=== PATIENT | female | born 1935 | race Caucasian/White ===

== ENCOUNTER → 2017-03-29 08:39 | Outpatient (CLI) | payer MEDICARE, SELFPAY ==
--- NOTE | 2017-03-29 | CT_ITS ---
CT chest wo con, CT biopsy guided needle, CT organ site lung RT Ordering Physician: Sebas Haddad MD Patient Age: 81 years: Female HISTORY: ITS.REASON: BX RT LUNG MASS for biopsy TECHNIQUE: Axial image set CT entire chest initially to localize lesion,for positioning with subsequent multiple limited axial biopsy images sets CT-guided biopsy to assist guiding needle to the appropriate location. At the end of the study. Complete CT chest was performed as well to exclude pneumothorax and reevaluate for any additional features. COMPARISON previous LD CT chest screening study from 02/03/2017. Subsequent outside PET/CT 03/03/2017 Also:Previous CT chest 05/12/2014 FINDINGS : CT chest Initially a Complete CT chest without contrast performed with the patient right side elevated, oblique position in order to to determine the best route for FNA biopsy of the known right lower lobe lung mass.. These initial images with patient tilted ~40 degrees right side elevated, again show ovoid mass at the periphery of the right lower lobe. This measures up to 4 cm AP x nearly 3 cm transverse. Abuts the pleura and basically subpleural type mass with no associated chest wall or rib involvement evident. No significant mediastinal nor hilar adenopathy. Calcified aorta. Mild diffuse tracheobronchial calcification most evident at hilar regions. I would note generous caliber pulmonary artery bilaterally which could reflect underlying pulmonary hypertension. Heart upper normal in size. Pacemaker right chest with atrial and ventricular leads intact. There is yield some streak artifact at the upper chest from the pacemaker.. Note postsurgical changes at isthmus and towards inferior right thyroid. It appeared left thyroid gland may have been possibly removed.. Small hiatal hernia. Adrenals normal. CT guided FNA biopsy... Following sterile preparation and local skin anesthesia as well patient sequential intermittent small doses Versed. We initially attempted to utilize Demerol 6.5 mg IV as well but patient developed a rash from this and thus we did not utilize further. Rather we gave Benadryl slow IV and the hives, rash at the IV are resolved. 3 FNA biopsy passes were performed under CT guidance.. Fundus sterile preparation and local skin anesthesia a 18-gauge hypodermic needle was placed and directed towards the mass. Breathing instructions were recurred with patient to provide consistent position of the mass. Once this was established 3 passes were performed using 22-gauge Chiba needle.. Generous amount of tissue obtained and submitted into the cytology container.. Patient tolerated procedure well with very little discomfort . CT chest post biopsy. Following the biopsy procedure a complete CT chest edema performed. This final image does show some minimal hemorrhage medial to the mass where the needle went through the mass into the adjacent lung. Minimal air is seen along the tract of the needle. However there is no pneumothorax . Follow-up chest films obtained with patient recovery show no pneumothorax development. There is a scant barely evident right pleural effusion which is very very slightly more evident at the end of the study which may reflect some minimal bleeding into the pleural space is well. Minor atelectasis is seen towards the right lung base.. Progressive dependent atelectasis at the left chest noted. Prominent atherosclerotic calcification yields moderate narrowing upper abdominal aorta with prominent renal artery proximal SMA calcification. IMPRESSION 1. The 4 x 3 cm ovoid mass at the periphery the RLL was sampled with 3 FNA biopsy passes using a 22-gauge Chiba needle. Generous tissue obtained cytology container, and submitted to pathology Patient to
[2017-03-29 09:23] LABS: Activated Partial Thrombo Time 25.7 seconds (23.6-34.0); Basophils # 0.1 K/mm3 (0-0.2); Basophils % 0.7 % (0.1-2.0); Eosinophils # 0.3 K/mm3 (0.0-0.4); Eosinophils % 5.1 % (0.1-12.0); Hematocrit 32.3 % (37.0-47.0); Hemoglobin 10.2 g/dL (12.2-16.2); INR 0.99 (0.9-1.1); Lymphocytes # 1.4 K/mm3 (0.7-4.5); Lymphocytes % 22.5 K/mm3 (10-50); Mean Corpuscular HGB Conc 31.6 g/dL (31.8-35.4); Mean Corpuscular Hemoglobin 29.6 pg (27.0-31.2); Mean Corpuscular Volume 93.4 fl (81-99); Mean Platelet Volume 7.1 fl (7.4-10.4); Monocytes # 0.3 K/mm3 (0.1-1.0); Neutrophils # 4.3 K/mm3 (1.8-7.8); Neutrophils % 66.8 % (37.0-80.0); Platelet Count 198 K/mm3 (142-424); Prothrombin Time 10.7 seconds (9.4-11.8); Red Blood Count 3.46 M/mm3 (4.20-5.40); White Blood Count 6.4 K/mm3 (4.8-10.8)
--- NOTE | 2017-03-29 12:44 | XR_ITS ---
XR CHEST 2V PA and lateral immediate post biopsy CXR#1. performed at 1250 hours Ordering Physician: Sebas Haddad MD Patient Age: 81 years: Female HISTORY: ITS.REASON: 3 HR S/P CT RT LUNG BX RO PNEUMOTHORAXpost lung mass biopsy TECHNIQUE: PA lateral chest COMPARISON :CT lung biopsy images completed immediate prior to this FINDINGS No pneumothorax is evident. The round mass at the right lung bases again identified. 3.6 cm round lung mass seen projected just above the lateral right hemidiaphragm again noted. . Post biopsy CT showed some minimal bleeding adjacent to this mass which is perhaps vaguely evident on the this immediate biopsy chest film with a shaggy medial margin of the mass on this study reflecting such... . Most importantly there is no pneumothorax. No pleural effusion. No acute lung findings otherwise seen of significance. Cardiomegaly. Pacemaker overlying the upper right chest. Left lung clear. Postsurgical changes at the bed of thyroid on right. IMPRESSION======= Nothing definitely acute No pneumothorax post biopsy. Lung mass right lung base again evident. Very slight shaggy margin may reflect minimal lung hemorrhage adjacent to it seen on the post biopsy CT images here. Cardiomegaly. Pacemaker
--- NOTE | 2017-03-29 15:00 | XR_ITS ---
XR CHEST 2V PA and lateral post biopsy CXR#2. performed at 1503 hours Ordering Physician: Sebas Haddad MD Patient Age: 81 years: Female HISTORY: ITS.REASON: 3 HR S/P CT RT LUNG BX RO PNEUMOTHORAXpost lung mass biopsy TECHNIQUE: PA lateral chest COMPARISON :Immediate postbiopsy CXR [address] lung biopsy images prior to that. FINDINGS No pneumothorax is evident. The round mass at the right lung bases again identified. 3.6 cm round lung mass seen projected just above the lateral right hemidiaphragm again noted. . Post biopsy CT showed some minimal bleeding adjacent to this mass which was vaguely evident on the previous immediate post biopsy chest film.. However on this delayed image the margins are actually slightly sharper. Most importantly there is no pneumothorax. No pleural effusion. No acute lung findings otherwise seen of significance. Cardiomegaly. Pacemaker overlying the upper right chest. Left lung clear. Postsurgical changes at the bed of thyroid on right. IMPRESSION======= Nothing definitely acute No pneumothorax post biopsy. Lung mass right lung base again evident. Cardiomegaly. Pacemaker
== END ==
PROVIDERS: PCP Family Medicine; Referring Provider Nurse Practitioner Family; Visit Provider Internal Medicine
DX: R94.2 Abnormal results of pulmonary function studies (principal); R91.8 Other nonspecific abnormal finding of lung field; Z79.01 Long term (current) use of anticoagulants
CPT/HCPCS: 10022; 36415; 71046; 71250; 77012; 85025; 85610; 85730; 88112; 88305; 88342

== ENCOUNTER 2017-05-25 09:30 | Outpatient (CLI) | payer MEDICARE, SELFPAY ==
[2017-05-25 09:48] VITALS: BMI 32.3
[2017-05-25 10:41] LABS: Basophils # 0.1 K/mm3 (0-0.2); Basophils % 0.7 % (0.1-2.0); Eosinophils # 0.3 K/mm3 (0.0-0.4); Eosinophils % 4.5 % (0.1-12.0); Hemoglobin 10.8 g/dL (12.2-16.2); Lymphocytes % 26.9 K/mm3 (10-50); Mean Corpuscular HGB Conc 30.1 g/dL (31.8-35.4); Mean Corpuscular Volume 96.3 fl (81-99); Mean Platelet Volume 6.9 fl (7.4-10.4); Monocytes # 0.4 K/mm3 (0.1-1.0); Monocytes % 5.5 % (1.7-9.3); Neutrophils # 4.5 K/mm3 (1.8-7.8); Neutrophils % 62.5 % (37.0-80.0); Platelet Count 273 K/mm3 (142-424); Red Blood Count 3.73 M/mm3 (4.20-5.40); White Blood Count 7.3 K/mm3 (4.8-10.8)
[2017-05-25 11:30] VITALS: BP 156/85; PULSE 76; RESP 18; TEMP 36.6
[2017-05-25 11:45] VITALS: BP 165/77; PULSE 78; RESP 18
[2017-05-25 12:00] VITALS: BP 171/76; PULSE 73; RESP 18
== END 2017-05-25 12:25 | disposition home or self-care (01) ==
LOC: INF 09:51
PROVIDERS: PCP Family Medicine; Visit Provider Internal Medicine
DX: C34.90 Malignant neoplasm of unspecified part of unspecified bronchus or lung (principal); Z51.11 Encounter for antineoplastic chemotherapy
CPT/HCPCS: 85025; 96413; J9271

== ENCOUNTER 2017-06-09 11:44 | Observation (INO) | payer MEDICARE, SELFPAY ==
[2017-06-09 11:44] VITALS: BP 119/66; PULSE 86; RESP 20; TEMP 37.3; O2SAT 92; BMI 31.1
[2017-06-09 11:52] VITALS: BMI 31.1
--- NOTE | 2017-06-09 11:53 | XR_ITS ---
XR chest portable HISTORY: ITS.REASON: weakness ORDERING PHYSICIAN: Juan Ramon Chambers MD PATIENT AGE: 81 years COMPARISON: 03 29 17 FINDINGS: Mild cardiomegaly without failure. Bipolar pacemaker is present. Parenchymal opacity once again noted in the right lung base and may be slightly smaller. Left lung is clear. Surgical clips are present in the right apex. IMPRESSION: Cardiomegaly with right lower lobe mass fissure for neoplasm which may be slightly smaller compared to the previous exam
--- NOTE | 2017-06-09 11:57 | HMH.EDGENADL ---
ED Disposition Clinical Impression: Dehydration, Generalized weakness UTI (urinary tract infection) Qualifiers: Urinary tract infection type: site unspecified Hematuria presence: with hematuria Qualified Code(s): N39.0 - Urinary tract infection, site not specified; R31.9 - Hematuria, unspecified Lung cancer Qualifiers: Laterality: right Lung location: lower lobe of lung Qualified Code(s): C34.31 - Malignant neoplasm of lower lobe, right bronchus or lung Disposition: Still a Patient Condition on Discharge: Fair Referrals: Kartik Armas MD [Primary Care Provider] - - Critical Care Critical Care Time: No Attestation: On 06/09/17, the high probability of a clinically significant, sudden or life threatening deterioration of the following system(s) required my full and direct attention, intervention and personal management. The time I documented below is in addition to time spent performing reported procedures but includes the following listed in this critical care notation. Medical Decision Making - Johnny Inquiry Pt receiving controlled substance: No Vital Signs: 06/09/17 11:44 Temperature 99.2 F Temperature Source Oral Pulse Rate [Right Radial] 86 Respiratory Rate 20 Blood Pressure [Right Arm] 119/66 Blood Pressure Mean [Right Arm] 83 Blood Pressure Source [Right Arm] Automatic Cuff Blood Pressure Position [Right Arm] Supine 02 Sat by Pulse Oximetry 92 L Oxygen Delivery Method Nasal Cannula Oxygen Flow Rate (LPM) 2 - Lab Data Lab Results 06/09/17 11:55: WBC 6.7, RBC 3.48 L, Hgb 10.2 L, Hct 32.4 L, MCV 93.0, MCH 29.3, MCHC 31.5 L, RDW 14.3, Plt Count 171, MPV 7.4, Neut % (Auto) 82.0 H, Lymph % (Auto) 13.3, [place] % (Auto) 3.8, Eos % (Auto) 0.6, Baso % (Auto) 0.3, Neut # (Auto) 5.5, Lymph # (Auto) 0.9, [place] # (Auto) 0.3, Eos # (Auto) 0.0, Baso # (Auto) 0.0 06/09/17 11:55: Sodium 132 L, Potassium 3.4 L, Chloride 95 L, Carbon Dioxide 29, Anion Gap 11.4, BUN 22 H, Creatinine 1.02, Estimated Creat Clear 54, Estimated GFR 52 L, Est GFR ( Amer) 63, Glucose 122 H, Calcium 8.0 L, Total Bilirubin 0.3, AST 26, ALT 22, Alkaline Phosphatase 93, Total Creatine Kinase 112, CK-MB (CK-2) 0.5, CK-MB (CK-2) Rel Index 0.4, Troponin I < 0.02, Total Protein 7.1, Albumin 2.7 L, Globulin 4.4 H, Albumin/Globulin Ratio 0.6 L 06/09/17 11:55: Lactic Acid 1.8 06/09/17 12:15: Urine Color Yellow, Urine Appearance Clear, Urine pH 5.5, Ur Specific [place] 1.020, Urine Protein Trace, Urine Glucose (UA) Negative, Urine Ketones Negative, Urine Blood 1+, Urine Nitrate Positive, Urine Bilirubin Negative, Urine Urobilinogen 0.2, Ur Leukocyte Esterase 1+ A, Urine RBC 3-5, Urine WBC 20-50, Ur Squamous Epith Cells 5-10, Urine Bacteria 4+ Result diagrams: 06/09/17 11:55 06/09/17 11:55 Orders (Tests/Meds): ED MEDICATIONS Generic Name Dose Route Start Last Admin Trade Name Freq PRN Reason Stop Dose Admin Ceftriaxone Sodium 1 gm/ 50 mls @ 100 mls/hr 06/09/17 13:15 Sodium Chloride IV 06/23/17 13:14 Q24H ANNE-MARIE Protocol Discontinued Medications Generic Name Dose Route Start Last Admin Trade Name Freq PRN Reason Stop Dose Admin Sodium Chloride 500 mls @ 999 mls/hr 06/09/17 12:00 06/09/17 11:56 Sod Chlor 0.9% 1000ml Bag IV 06/09/17 12:30 999 mls/hr .Q31M ANNE-MARIE Administration Ondansetron HCl 4 mg 06/09/17 12:04 06/09/17 12:09 Zofran 4mg/2ml Vial IV 06/09/17 12:05 4 mg ONCE ONE Administration ORDERS Category Date Time Status XR chest portable Stat Exams 06/09/17 11:53 Taken Blood Culture Stat Micro 06/09/17 11:55 Received Urine Culture Stat Micro 06/09/17 12:15 Received - ECG Data Tracing #1 EKG interpreted by Juan Ramon Chambers MD: Rhythm: Ventricular paced rhythm Rate: 82 No evidence of acute ischemia or injury Medical Decision Narrative: Lists an allergy to penicillin, but review of previous medications here shows she has had cephalosporins including Rocephin.
[2017-06-09 12:14] LABS: Basophils % 0.3 % (0.1-2.0); Eosinophils % 0.6 % (0.1-12.0); Hematocrit 32.4 % (37.0-47.0); Hemoglobin 10.2 g/dL (12.2-16.2); Lymphocytes # 0.9 K/mm3 (0.7-4.5); Lymphocytes % 13.3 K/mm3 (10-50); Mean Corpuscular HGB Conc 31.5 g/dL (31.8-35.4); Mean Corpuscular Hemoglobin 29.3 pg (27.0-31.2); Mean Platelet Volume 7.4 fl (7.4-10.4); Monocytes # 0.3 K/mm3 (0.1-1.0); Monocytes % 3.8 % (1.7-9.3); Neutrophils # 5.5 K/mm3 (1.8-7.8); Platelet Count 171 K/mm3 (142-424); Red Blood Count 3.48 M/mm3 (4.20-5.40); Red Cell Distribution Width 14.3 % (11.5-17.5); White Blood Count 6.7 K/mm3 (4.8-10.8)
[2017-06-09 12:39] LABS: Lactic Acid 1.8 mmol/L (0.4-2.0)
[2017-06-09 12:39] LABS: Microscopic, Urine URINE MICROSCOPIC (MICROSCOPIC)
[2017-06-09 12:41] LABS: Appearance,Urine CLEAR (Clear); Bilirubin,Urine Negative (Negative); Blood, Urine 1+ (Negative); Color,Urine YELLOW (Yellow); Glucose,Urine (UA) Negative (Negative); Ketones,Urine Negative (Negative); Leukocyte Esterase,Urine 1+ (Negative); Nitrate,Urine POSITIVE (Negative); PH,Urine 5.5 (5.0-8.5); Protein,Urine TRACE (Negative); Urobilinogen,Urine 0.2 EU/dl (0.2)
[2017-06-09 12:42] LABS: Alanine Aminotransferase 22 U/L (12-78); Albumin Level 2.7 gm/dL (3.4-5.0); Albumin/Globulin Ratio 0.6 (1.1-1.8); Alkaline Phosphatase 93 U/L (46-116); Anion Gap 11.4 mEq/L (5-15); Aspartate Amino Transferase 26 U/L (15-37); Bilirubin,Total 0.3 mg/dL (0.2-1.0); Blood Urea Nitrogen 22 mg/dL (7-18); CKMB Relative Index 0.4 U/L (0-4.0); Carbon Dioxide 29 mmol/L (21.0-32.0); Chloride 95 mmol/L (98-107); Creatine Kinase 112 U/L (26-192); Creatine Kinase MB 0.5 ng/ml (0.0-3.6); Creatinine Clearance Estimated 54 mL/min (0-300); Creatinine,Serum 1.02 mg/dL (0.55-1.02); Estimated Glomerular Filt Rate 52 ml/min (>60); GFR (African American) 63 ML/MIN (>60); Globulin 4.4 gm/dl (1.3-3.2); Glucose 122 mg/dL (74-106); Potassium 3.4 mmoL/L (3.5-5.1); Sodium 132 mmol/L (136-145); Total Protein,Serum 7.1 gm/dL (6.4-8.2); Troponin I < 0.02 ng/ml (0.00-0.06)
[2017-06-09 12:49] LABS: Bacteria,Urine 4+ /lpf; WBC,Urine 20-50 #/hpf (0-3)
[2017-06-09 14:01] VITALS: BMI 33.0
[2017-06-09 14:28] LABS: Free Thyroxine Index 4.3 ug/dL (5.93-13.13); T4 (Thyroxine) 11.2 ug/dl (4.7-13.3); Thyroid Stimulating Hormone 0.55 uIU/ml (0.358-3.740); Triiodothryronine (T3) Uptake 38 % (31-39)
--- NOTE | 2017-06-09 14:29 | PC.NURSE ---
attempted to call report
[2017-06-09 15:02] VITALS: BP 132/80; PULSE 85; RESP 18; TEMP 36.7; O2SAT 98
[2017-06-09 15:07] VITALS: BP 101/50; PULSE 79; RESP 20; TEMP 38.2; O2SAT 100
--- NOTE | 2017-06-09 15:56 | HMH.HP ---
*Admission Date: 06/09/17 *Chief complaint: Generalized weakness *History of present illness: 81-year-old female with recent diagnosis of squamous cell carcinoma of the right lung and history of COPD and coronary artery disease presented to the emergency department with complaint of increasing weakness and malaise over the preceding 3-4 days. Patient admits to poor appetite but was attempting to maintain her fluid status with drinking water and diet Pepsi. She denies fevers at home. Family became concerned because of her progressive decline and brought her to the emergency department. Patient did require assistance from staff getting out of the vehicle. Workup in the emergency department revealed what appears to be a urinary tract infection and mild dehydration. Patient has been admitted and placed on IV fluids and received Rocephin intravenously in the emergency department. Patient is now been on the floor for just a couple of hours but feels like she is already starting to improve. Since admission she has had a low-grade fever to 100.7. In regards to her squamous cell carcinoma of the right lung she received her first dose of Keytruda 2 weeks ago. [facility] History Medical History: Reports:: Cancer (Lung Right), Chronic Obstructive Pulmonary Disease (COPD), Coronary Artery Disease, Diabetes Mellitus Type 2, Hypertension, Internal Pacemaker Denies:: Diabetes Mellitus Type 1 Other Medical History: Reports: Thyroid Disease Other Surgeries: Yes: Hysterectomy-Total, Pacemaker, Thyroidectomy, Other (gallbladder) Amputation: No Fractures: No - *Social History Smoking Status: Former smoker Tobacco Type: cigarettes #Yrs smoked (if former smoker): 30 Smoking End Date: 2007 Alcohol Intake: never Substance Use Type: denies use Occupational Status: retired Housing: house Household Members: spouse - Psychiatric History Expresses thoughts of harming self/others: None Suicide Plan Description: No Plan *Family Hx:: Cancer, Coronary Artery Disease, Heart Attack Review of Systems - Constitutional Reports anorexia, Reports lack of energy, Reports malaise, Reports weakness, Denies chills, Denies fever(s), Denies night sweats - *Cardiovascular Reports shortness of breath, Denies chest pain - *Respiratory Reports cough - *Gastrointestinal Denies abdominal pain - *Neurologic Reports weakness, Denies headache(s), Denies numbness Meds Home Medications Medication Instructions Recorded Confirmed Type Aspirin [Aspir 81] 81 mg PO DAILY 03/29/17 06/09/17 History Clopidogrel Bisulfate [Clopidogrel 75 mg PO DAILY 03/29/17 06/09/17 History 75mg Tab] Fluticasone/Salmeterol [Advair 1 puff INHALATION BID 03/29/17 06/09/17 History 500/50mcg diskus] Levothyroxine Sodium 125 mcg PO DAILY 03/29/17 06/09/17 History [Levothyroxine 125mcg (0.125mg) Tab] Lisinopril [Lisinopril 10mg Tab] 10 mg PO DAILY 03/29/17 06/09/17 History Metformin HCl [Metformin 500mg 500 mg PO BID 03/29/17 06/09/17 History Tablet] [place]-3 Fatty Acids/Fish Oil [Fish 1 each PO DAILY 03/29/17 06/09/17 History Oil 1,000 mg Capsule] PARoxetine HCl [Paxil] 20 mg PO DAILY 03/29/17 06/09/17 History Pantoprazole Sodium [Protonix 40mg 40 mg PO DAILY 03/29/17 06/09/17 History tablet] Simvastatin 40 mg PO DAILY 03/29/17 06/09/17 History Spironolactone [Spironolactone 25 mg PO DAILY 03/29/17 06/09/17 History 25mg Tab] Tolterodine Tartrate 2 mg PO DAILY 03/29/17 06/09/17 History carvedilol 3.125 mg tablet 3.125 mg PO BID tab 04/24/17 06/09/17 History chlordiazepoxide 25 mg capsule 25 mg PO BID cap 04/24/17 06/09/17 History doxazosin 2 mg tablet 4 mg PO QHS tab 04/24/17 06/09/17 History Ipratropium/Albuterol Sulfate 3 ml IH Q6HP PRN 05/25/17 06/09/17 History [Duoneb 3mL neb] Allergies Allergy/AdvReac Type Severity Reaction Status Date / Time Penicillins Allergy Unknown Verified 05/25/17 10:22 morphine AdvReac Severe SHORTNESS Verified 0
--- NOTE | 2017-06-09 16:00 | P.HP_ITS ---
*Admission Date: 06/09/17 *Chief complaint: Generalized weakness *History of present illness: 81-year-old female with recent diagnosis of squamous cell carcinoma of the right lung and history of COPD and coronary artery disease presented to the emergency department with complaint of increasing weakness and malaise over the preceding 3-4 days. Patient admits to poor appetite but was attempting to maintain her fluid status with drinking water and diet Pepsi. She denies fevers at home. Family became concerned because of her progressive decline and brought her to the emergency department. Patient did require assistance from staff getting out of the vehicle. Workup in the emergency department revealed what appears to be a urinary tract infection and mild dehydration. Patient has been admitted and placed on IV fluids and received Rocephin intravenously in the emergency department. Patient is now been on the floor for just a couple of hours but feels like she is already starting to improve. Since admission she has had a low-grade fever to 100.7. In regards to her squamous cell carcinoma of the right lung she received her first dose of Keytruda 2 weeks ago. [facility] History Medical History: Reports:: Cancer (Lung Right), Chronic Obstructive Pulmonary Disease (COPD), Coronary Artery Disease, Diabetes Mellitus Type 2, Hypertension , Internal Pacemaker Denies:: Diabetes Mellitus Type 1 Other Medical History: Reports: Thyroid Disease Other Surgeries: Yes: Hysterectomy-Total, Pacemaker, Thyroidectomy, Other ( gallbladder) Amputation: No Fractures: No - *Social History Smoking Status: Former smoker Tobacco Type: cigarettes #Yrs smoked (if former smoker): 30 Smoking End Date: 2007 Alcohol Intake: never Substance Use Type: denies use Occupational Status: retired Housing: house Household Members: spouse - Psychiatric History Expresses thoughts of harming self/others: None Suicide Plan Description: No Plan *Family Hx:: Cancer, Coronary Artery Disease, Heart Attack Review of Systems - Constitutional Reports anorexia, Reports lack of energy, Reports malaise, Reports weakness, Denies chills, Denies fever(s), Denies night sweats - *Cardiovascular Reports shortness of breath, Denies chest pain - *Respiratory Reports cough - *Gastrointestinal Denies abdominal pain - *Neurologic Reports weakness, Denies headache(s), Denies numbness Meds Home Medications Medication Instructions Recorded Confirmed Type Aspirin [Aspir 81] 81 mg PO DAILY 03/29/17 06/09/17 History Clopidogrel Bisulfate [Clopidogrel 75 mg PO DAILY 03/29/17 06/09/17 History 75mg Tab] Fluticasone/Salmeterol [Advair 1 puff INHALATION BID 03/29/17 06/09/17 History 500/50mcg diskus] Levothyroxine Sodium 125 mcg PO DAILY 03/29/17 06/09/17 History [Levothyroxine 125mcg (0.125mg) Tab] Lisinopril [Lisinopril 10mg Tab] 10 mg PO DAILY 03/29/17 06/09/17 History Metformin HCl [Metformin 500mg 500 mg PO BID 03/29/17 06/09/17 History Tablet] [place]-3 Fatty Acids/Fish Oil [Fish 1 each PO DAILY 03/29/17 06/09/17 History Oil 1,000 mg Capsule] PARoxetine HCl [Paxil] 20 mg PO DAILY 03/29/17 06/09/17 History Pantoprazole Sodium [Protonix 40mg 40 mg PO DAILY 03/29/17 06/09/17 History tablet] Simvastatin 40 mg PO DAILY 03/29/17 06/09/17 History Spironolactone [Spironolactone 25 mg PO DAILY 03/29/17 06/09/17 History 25mg Tab] Tolterodine Tartrate 2 mg PO DAILY 03/29/17 06/09/17 History
[2017-06-09 19:54] VITALS: BP 126/45; RESP 20; TEMP 36.7; O2SAT 97
[2017-06-09 23:09] VITALS: O2SAT 88
[2017-06-10] VITALS (8 sets, daily range): BP systolic 109–157; BP diastolic 54–66; PULSE 81–94; RESP 18–20; TEMP 36.8–37.4; O2SAT 94–98
--- NOTE | 2017-06-10 03:58 | PC.NURSE ---
Patient laying in bed resting at this time. Has been to the restroom several times with standby assist. Has had stress incontinence every trip to restroom, soiling socks and floor. Has wheezes bilaterally. Denies soa, resp are even and non labored. Skin is warm, pink,dry and intact. No edema noted. IV is intact, encouraged patient to call out for assistance to restroom due to incontinence and lower ext weak. Verbalized understanding. Bed locked in low position, side rails up x 2, call light within reach. Will continue to monitor.
--- NOTE | 2017-06-10 06:38 | HMH.ACPN2 ---
Internal Medicine - PN: Subj *Date: 06/10/17 *Time: 06:38 Interval history: Patient had no problems over the night other than some urinary continence. She admits she is feeling a little bit better. She was noted to be wheezing by the nurse. She does use as needed neb treatments at home. She denies significant shortness of breath. Her appetite remains poor Exam Vital signs and Labs for Last 24 Hours: Temp Pulse Resp BP Pulse Ox 98.9 F 82 18 109/55 96 06/10/17 04:00 06/10/17 04:00 06/10/17 04:00 06/10/17 04:00 06/10/17 04:00 I & O for Last 24 hours: Intake & Output 06/07/17 06/08/17 06/09/17 06/10/17 11:59 11:59 11:59 11:59 Intake Total 360 / 360 Output Total 500 / 500 Balance -140 / -140 Narrative: She is in no distress. Audible wheezing can be heard just standing at bedside. Oropharynx is moist and clear. Lungs have expiratory wheezes and diminished sounds at the bases. Heart has a regular rate and rhythm. Abdomen is soft. Assessment and Plan (1) Dehydration Current visit: Yes Status: Acute Category: Medical Code(s): E86.0 - Dehydration (2) Generalized weakness Current visit: Yes Status: Acute Category: Medical Code(s): R53.1 - Weakness (3) Lung cancer Current visit: Yes Status: Acute Qualifiers: Laterality: right Lung location: lower lobe of lung Qualified Code(s): C34.31 - Malignant neoplasm of lower lobe, right bronchus or lung Category: Medical Code(s): C34.90 - Malignant neoplasm of unspecified part of unspecified bronchus or lung (4) UTI (urinary tract infection) Current visit: Yes Status: Acute Qualifiers: Urinary tract infection type: site unspecified Hematuria presence: with hematuria Qualified Code(s): N39.0 - Urinary tract infection, site not specified; R31.9 - Hematuria, unspecified Category: Medical Code(s): N39.0 - Urinary tract infection, site not specified - Assessment and plan all Dx Assessment and Plan for all problems:: 1. Decrease IV fluids to 50 mL's an hour and continue to monitor p.o. intake 2. Add duo nebs 3 times daily 3. Await urine and blood cultures
--- NOTE | 2017-06-10 09:47 | P.CONPHA_ITS ---
[facility] Pharmacy VTE Monitoring - Patient Demographics Admission date: 06/09/17 Report Date: 06/10/17 Time: 09:47 Allergies/Adverse Reactions: Patient Allergies Penicillins Allergy (Unknown, Verified 05/25/17 10:22) morphine Adverse Reaction (Severe, Verified 04/24/17 13:14) SHORTNESS OF BREATH Corticosteroids (Glucocorticoids) Adverse Reaction (Unknown, Verified 04/24/17 13:14) STEROIDS MAKE HER SHAKY , NO ALLERGIC REACTION Height: 1.55 m Weight: 79.492 kg Patient Problems: Current Active Problems UTI (urinary tract infection) (Acute) Dehydration (Acute) Generalized weakness (Acute) Lung cancer (Acute) - VTE Risk Labs: VTE Related Lab Results Hgb 10.2 g/dL (12.2-16.2) L 06/09/17 11:55 Hct 32.4 % (37.0-47.0) L 06/09/17 11:55 Plt Count 171 K/mm3 (142-424) 06/09/17 11:55 BUN 22 mg/dL (7-18) H 06/09/17 11:55 Creatinine 1.02 mg/dL (0.55-1.02) 06/09/17 11:55 Estimated Creat Clear 54 mL/min (0-300) 06/09/17 11:55 VTE Score: 3 VTE Risk Level: Low Risk - Prophylaxis VTE Prophylaxis Ordered?: Yes Types of VTE Prophylaxis: TEDS Thigh High Location of Applied Device: Bilateral Lower Extremeties - VTE Diagnosis Confirmed Treatment or plan recommended: Continue Current Treatment
[2017-06-11] VITALS (9 sets, daily range): BP systolic 148–155; BP diastolic 53–63; PULSE 72–98; RESP 18–20; TEMP 37–37.2; O2SAT 89–98
--- NOTE | 2017-06-11 03:47 | PC.NURSE ---
Pt up and down to bsc, no c/o pain, intermittent sleep, pleasant and cooperative with poc, remained safe this shift.
--- NOTE | 2017-06-11 07:07 | PC.NURSE ---
Shift report given to Hasmukh St RN leaving pt safe and stable.
--- NOTE | 2017-06-11 08:07 | HMH.ACPN2 ---
Internal Medicine - PN: Subj *Date: 06/11/17 *Time: 08:07 Interval history: Patient had a good night, good nursing staff report, good p.o. intake. She has no complaints, states she is feeling better. Exam Vital signs and Labs for Last 24 Hours: Temp Pulse Resp BP Pulse Ox 98.9 F 98 H 20 153/63 95 06/11/17 07:35 06/11/17 07:35 06/11/17 07:35 06/11/17 07:35 06/11/17 07:35 I & O for Last 24 hours: Intake & Output 06/08/17 06/09/17 06/10/17 06/11/17 11:59 11:59 11:59 11:59 Intake Total 360 / 360 2070 / 2070 Output Total 700 / 700 1400 / 1400 Balance -340 / -340 670 / 670 Weight 175 lb 4 oz Narrative: Patient is awake, pleasant. Anterior lung fernando are clear, heart rate regular. Abdomen is soft, minimal tenderness in the right flank. No perfusion deficits. Assessment and Plan (1) Dehydration Current visit: Yes Status: Acute Category: Medical Code(s): E86.0 - Dehydration (2) Generalized weakness Current visit: Yes Status: Acute Category: Medical Code(s): R53.1 - Weakness (3) Lung cancer Current visit: Yes Status: Acute Qualifiers: Laterality: right Lung location: lower lobe of lung Qualified Code(s): C34.31 - Malignant neoplasm of lower lobe, right bronchus or lung Category: Medical Code(s): C34.90 - Malignant neoplasm of unspecified part of unspecified bronchus or lung (4) UTI (urinary tract infection) Current visit: Yes Status: Acute Qualifiers: Urinary tract infection type: site unspecified Hematuria presence: with hematuria Qualified Code(s): N39.0 - Urinary tract infection, site not specified; R31.9 - Hematuria, unspecified Category: Medical Code(s): N39.0 - Urinary tract infection, site not specified - Assessment and plan all Dx Assessment and Plan for all problems:: Patient seems to be improving. Urine culture is growing gram-negative rods. Continue ceftriaxone. Check labs tomorrow morning. Await culture/sensitivity results.
[2017-06-12 03:22] VITALS: O2SAT 89
[2017-06-12 04:00] VITALS: BP 149/50; PULSE 71; RESP 20; TEMP 36.4; O2SAT 93
--- NOTE | 2017-06-12 04:38 | PC.NURSE ---
Pt had a good night, up to chair in earlier shift returning to bed and sleeping much better tonight versus last night. Up and down safely to bsc. Lung fernando found to have inspiratory and expiratory wheezes that improve with breathing treatments. Pt advised she thought she was going to get to go home this morning, when asked if she was ready to go home, she replied with a big yes! Ask if she had any questions regarding going home or medications and pt voiced she did not. Nothing acute to report and pt remained safe this shift.
[2017-06-12 06:38] LABS: Basophils % 0.4 % (0.1-2.0); Eosinophils # 0.2 K/mm3 (0.0-0.4); Eosinophils % 3.8 % (0.1-12.0); Hematocrit 28.7 % (37.0-47.0); Hemoglobin 8.9 g/dL (12.2-16.2); Lymphocytes # 1.1 K/mm3 (0.7-4.5); Lymphocytes % 20.1 K/mm3 (10-50); Mean Corpuscular HGB Conc 31.2 g/dL (31.8-35.4); Mean Corpuscular Hemoglobin 29.5 pg (27.0-31.2); Mean Corpuscular Volume 94.6 fl (81-99); Monocytes # 0.3 K/mm3 (0.1-1.0); Monocytes % 6.3 % (1.7-9.3); Neutrophils # 3.8 K/mm3 (1.8-7.8); Neutrophils % 69.3 % (37.0-80.0); Platelet Count 168 K/mm3 (142-424); Red Blood Count 3.03 M/mm3 (4.20-5.40); Red Cell Distribution Width 14.4 % (11.5-17.5); White Blood Count 5.4 K/mm3 (4.8-10.8)
[2017-06-12 06:43] LABS: Anion Gap 9.7 mEq/L (5-15); Carbon Dioxide 30 mmol/L (21.0-32.0); Chloride 109 mmol/L (98-107); Creatinine Clearance Estimated 57 mL/min (0-300); Estimated Glomerular Filt Rate 81 ml/min (>60); GFR (African American) 98 ML/MIN (>60); Glucose 123 mg/dL (74-106); Potassium 3.7 mmoL/L (3.5-5.1); Sodium 145 mmol/L (136-145)
[2017-06-12 07:02] LABS: Blood Urea Nitrogen 11 mg/dL (7-18)
--- NOTE | 2017-06-12 07:09 | PC.NURSE ---
Bedside report given with Delmi Fulton RN leaving pt safe and stable sitting up in bed eating breakfast.
--- NOTE | 2017-06-12 07:16 | HMH.DCSUM ---
General - General Admission date: 06/09/17 Discharge date: 06/12/17 HPI HPI: 81-year-old female with recent diagnosis of squamous cell carcinoma of the right lung and history of COPD and coronary artery disease presented to the emergency department with complaint of increasing weakness and malaise over the preceding 3-4 days. Patient admits to poor appetite but was attempting to maintain her fluid status with drinking water and diet Pepsi. She denies fevers at home. Family became concerned because of her progressive decline and brought her to the emergency department. Patient did require assistance from staff getting out of the vehicle. Workup in the emergency department revealed what appears to be a urinary tract infection and mild dehydration. Patient has been admitted and placed on IV fluids and received Rocephin intravenously in the emergency department. Patient is now been on the floor for just a couple of hours but feels like she is already starting to improve. Since admission she has had a low-grade fever to 100.7. In regards to her squamous cell carcinoma of the right lung she received her first dose of Keytruda 2 weeks ago. Hospital Course Hospital Course: Patient was admitted and started on IV fluids and intravenous Rocephin. She had low-grade fever on the day of admission of 100.7. She did not have any recurrence of fevers the rest of hospitalization. Over the 3 day hospitalization patient's strength gradually improved as did her appetite. She was able to transition to the chair and bedside commode independently. Urine culture ultimately grew E. coli. Once sensitivities had returned patient was discharged home on oral antibiotics. She will follow-up with Dr. Felipe in the oncology clinic on June 14 as previously scheduled. Objective Vital signs: Temp Pulse Resp BP Pulse Ox 97.6 F 71 20 149/50 93 L 06/12/17 04:00 06/12/17 04:00 06/12/17 04:00 06/12/17 04:00 06/12/17 04:00 Results Completed studies during hospitalization [Text1]: Microbiology 06/09/17 11:55 Blood Blood Culture - Preliminary NO GROWTH AFTER 48 HOURS 06/09/17 11:55 Blood Blood Culture - Preliminary NO GROWTH AFTER 48 HOURS 06/09/17 12:15 Urine,Clean Catch Urine Culture - Final Escherichia coli Labs on day of discharge: Labs from last 24 hours 06/12/17 06/12/17 06:10 06:10 WBC 5.4 RBC 3.03 L Hgb 8.9 L Hct 28.7 L MCV 94.6 MCH 29.5 MCHC 31.2 L RDW 14.4 Plt Count 168 MPV 8.0 Neut % (Auto) 69.3 Lymph % (Auto) 20.1 [place] % (Auto) 6.3 Eos % (Auto) 3.8 Baso % (Auto) 0.4 Neut # (Auto) 3.8 Lymph # (Auto) 1.1 [place] # (Auto) 0.3 Eos # (Auto) 0.2 Baso # (Auto) 0.0 Sodium 145 Potassium 3.7 Chloride 109 H Carbon Dioxide 30 Anion Gap 9.7 BUN 11 D Creatinine 0.70 D Estimated Creat Clear 57 Estimated GFR 81 Est GFR ( Amer) 98 D Glucose 123 H DS: Diagnosis - Discharge Diagnosis (1) UTI (urinary tract infection) Status: Acute (2) Dehydration Status: Acute (3) Generalized weakness Status: Acute (4) Lung cancer Status: Acute (5) E coli infection Status: Acute Discharge Plan - Patient Discharge Instructions ACTIVITY: Continue current activity DIET: continue same diet - Follow up Plan Follow up with: Mikhail Felipe MD [Staff Physician] - 2 days Disposition: Home, Self-Retirement Medications: Home Medications Medication Instructions Recorded Confirmed Type Aspirin [Aspir 81] 81 mg PO DAILY 03/29/17 06/09/17 History Clopidogrel Bisulfate [Clopidogrel 75 mg PO DAILY 03/29/17 06/09/17 History 75mg Tab] Fluticasone/Salmeterol [Advair 1 puff INHALATION BID 03/29/17 06/09/17 History 500/50mcg diskus] Levothyroxine Sodium 125 mcg PO DAILY 03/29/17 06/09/17 History [Levothy
--- NOTE | 2017-06-12 07:19 | P.DS_ITS ---
General - General Admission date: 06/09/17 Discharge date: 06/12/17 HPI HPI: 81-year-old female with recent diagnosis of squamous cell carcinoma of the right lung and history of COPD and coronary artery disease presented to the emergency department with complaint of increasing weakness and malaise over the preceding 3-4 days. Patient admits to poor appetite but was attempting to maintain her fluid status with drinking water and diet Pepsi. She denies fevers at home. Family became concerned because of her progressive decline and brought her to the emergency department. Patient did require assistance from staff getting out of the vehicle. Workup in the emergency department revealed what appears to be a urinary tract infection and mild dehydration. Patient has been admitted and placed on IV fluids and received Rocephin intravenously in the emergency department. Patient is now been on the floor for just a couple of hours but feels like she is already starting to improve. Since admission she has had a low-grade fever to 100.7. In regards to her squamous cell carcinoma of the right lung she received her first dose of Keytruda 2 weeks ago. Hospital Course Hospital Course: Patient was admitted and started on IV fluids and intravenous Rocephin. She had low-grade fever on the day of admission of 100.7. She did not have any recurrence of fevers the rest of hospitalization. Over the 3 day hospitalization patient's strength gradually improved as did her appetite. She was able to transition to the chair and bedside commode independently. Urine culture ultimately grew E. coli. Once sensitivities had returned patient was discharged home on oral antibiotics. She will follow-up with Dr. Felipe in the oncology clinic on June 14 as previously scheduled. Objective Vital signs: Temp Pulse Resp BP Pulse Ox 97.6 F 71 20 149/50 93 L 06/12/17 04:00 06/12/17 04:00 06/12/17 04:00 06/12/17 04:00 06/12/17 04:00 Results Completed studies during hospitalization [Text1]: Microbiology 06/09/17 11:55 Blood Blood Culture - Preliminary NO GROWTH AFTER 48 HOURS 06/09/17 11:55 Blood Blood Culture - Preliminary NO GROWTH AFTER 48 HOURS 06/09/17 12:15 Urine,Clean Catch Urine Culture - Final Escherichia coli Labs on day of discharge: Labs from last 24 hours 06/12/17 06/12/17 06:10 06:10 WBC 5.4 RBC 3.03 L Hgb 8.9 L Hct 28.7 L MCV 94.6 MCH 29.5 MCHC 31.2 L RDW 14.4 Plt Count 168 MPV 8.0 Neut % (Auto) 69.3 Lymph % (Auto) 20.1 [place] % (Auto) 6.3 Eos % (Auto) 3.8 Baso % (Auto) 0.4 Neut # (Auto) 3.8 Lymph # (Auto) 1.1 [place] # (Auto) 0.3 Eos # (Auto) 0.2 Baso # (Auto) 0.0 Sodium 145 Potassium 3.7 Chloride 109 H Carbon Dioxide 30 Anion Gap 9.7 BUN 11 D Creatinine 0.70 D Estimated Creat Clear 57 Estimated GFR 81 Est GFR ( Amer) 98 D Glucose 123 H DS: Diagnosis - Discharge Diagnosis (1) UTI (urinary tract infection) Status: Acute (2) Dehydration Status: Acute (3) Generalized weakness Status: Acute (4) Lung ca
[2017-06-12 07:36] VITALS: BP 155/59; PULSE 98; RESP 22; TEMP 36.6; O2SAT 95
--- NOTE | 2017-06-12 07:39 | PC.NURSE ---
Received report from Vicki Cardenas RN
--- NOTE | 2017-06-12 08:58 | PC.NURSE ---
0857 - Pt transported off floor via WC accompanied by [facility] staff and spouse. Pt discharged home in NAD. O2 in place.
== END 2017-06-12 08:59 | disposition home or self-care (01) ==
LOC: ER 11:48 → 2ND 13:56
PROVIDERS: Internal Medicine Adolescent Medicine; Admitting Provider Family Medicine; Emergency Provider Emergency Medicine; PCP Family Medicine; Visit Provider Family Medicine
DX: N39.0 Urinary tract infection, site not specified (principal); R31.9 Hematuria, unspecified; E86.0 Dehydration; R53.1 Weakness; C34.31 Malignant neoplasm of lower lobe, right bronchus or lung; I10 Essential (primary) hypertension; J44.9 Chronic obstructive pulmonary disease, unspecified; I25.10 Atherosclerotic heart disease of native coronary artery without angina pectoris; E11.9 Type 2 diabetes mellitus without complications; R32 Unspecified urinary incontinence; R06.2 Wheezing; E89.0 Postprocedural hypothyroidism; B96.20 Unspecified Escherichia coli [E. coli] as the cause of diseases classified elsewhere; Z95.0 Presence of cardiac pacemaker; Z90.710 Acquired absence of both cervix and uterus; Z87.891 Personal history of nicotine dependence; Z79.84 Long term (current) use of oral hypoglycemic drugs; Z79.02 Long term (current) use of antithrombotics/antiplatelets; Z79.82 Long term (current) use of aspirin; Z79.899 Other long term (current) drug therapy; Z88.5 Allergy status to narcotic agent; Z88.0 Allergy status to penicillin; Z88.8 Allergy status to other drugs, medicaments and biological substances
CPT/HCPCS: 36415; 71045; 80048; 80053; 81001; 82550; 82553; 83605; 84436; 84443; 84479; 84484; 85025; 87040; 87086; 87088; 87186; 93005; 94640; 94761; 96365; 96366; 99283; G0378; J2405

== ENCOUNTER 2017-06-14 09:48 | Outpatient (CLI) | payer MEDICARE, SELFPAY ==
[2017-06-14 09:50] VITALS: BMI 32.3
[2017-06-14 10:20] LABS: Basophils % 0.6 % (0.1-2.0); Eosinophils # 0.4 K/mm3 (0.0-0.4); Eosinophils % 5.8 % (0.1-12.0); Hematocrit 29.9 % (37.0-47.0); Hemoglobin 9.2 g/dL (12.2-16.2); Lymphocytes # 1.2 K/mm3 (0.7-4.5); Lymphocytes % 19.1 K/mm3 (10-50); Mean Corpuscular HGB Conc 30.8 g/dL (31.8-35.4); Mean Corpuscular Hemoglobin 29.3 pg (27.0-31.2); Mean Platelet Volume 7.6 fl (7.4-10.4); Monocytes # 0.3 K/mm3 (0.1-1.0); Monocytes % 4.9 % (1.7-9.3); Neutrophils # 4.4 K/mm3 (1.8-7.8); Neutrophils % 69.5 % (37.0-80.0); Platelet Count 272 K/mm3 (142-424); Red Blood Count 3.15 M/mm3 (4.20-5.40); Red Cell Distribution Width 14.4 % (11.5-17.5); White Blood Count 6.3 K/mm3 (4.8-10.8)
[2017-06-14 10:39] LABS: Alanine Aminotransferase 25 U/L (12-78); Albumin Level 2.4 gm/dL (3.4-5.0); Albumin/Globulin Ratio 0.6 (1.1-1.8); Alkaline Phosphatase 91 U/L (46-116); Anion Gap 9.8 mEq/L (5-15); Aspartate Amino Transferase 21 U/L (15-37); Bilirubin,Total 0.1 mg/dL (0.2-1.0); Blood Urea Nitrogen 9 mg/dL (7-18); Calcium 8.4 mg/dL (8.5-10.1); Carbon Dioxide 32 mmol/L (21.0-32.0); Chloride 105 mmol/L (98-107); Creatinine Clearance Estimated 56 mL/min (0-300); Creatinine,Serum 0.71 mg/dL (0.55-1.02); Estimated Glomerular Filt Rate 79 ml/min (>60); GFR (African American) 96 ML/MIN (>60); Globulin 4.3 gm/dl (1.3-3.2); Glucose 104 mg/dL (74-106); Potassium 3.8 mmoL/L (3.5-5.1); Sodium 143 mmol/L (136-145); Total Protein,Serum 6.7 gm/dL (6.4-8.2)
[2017-06-14 11:30] VITALS: BP 161/78; PULSE 75; RESP 18; TEMP 36.6; O2SAT 96
[2017-06-14 11:45] VITALS: BP 158/77; PULSE 79; RESP 18; TEMP 36.4; O2SAT 95
[2017-06-14 12:00] VITALS: BP 155/79; PULSE 74; RESP 18; O2SAT 95
[2017-06-14 12:15] VITALS: BP 156/74; PULSE 78; RESP 18; O2SAT 95
[2017-06-14 12:25] VITALS: BP 151/76; PULSE 75; RESP 18; O2SAT 95
== END 2017-06-14 12:30 | disposition home or self-care (01) ==
LOC: INF 09:48
PROVIDERS: PCP Family Medicine; Visit Provider Internal Medicine
DX: Z51.11 Encounter for antineoplastic chemotherapy (principal); C34.90 Malignant neoplasm of unspecified part of unspecified bronchus or lung
CPT/HCPCS: 80053; 85025; 96413; J9271

== ENCOUNTER → 2017-06-20 08:56 | Outpatient (POV) | payer MEDICARE, SELFPAY | PROVIDERS: PCP Family Medicine; Visit Provider Internal Medicine | DX: Z00.00 Encounter for general adult medical examination without abnormal findings (principal) ==

== ENCOUNTER 2017-07-05 12:40 | Outpatient (CLI) | payer MEDICARE, SELFPAY ==
[2017-07-05 12:49] VITALS: BMI 33.4
[2017-07-05 13:02] LABS: Basophils # 0.1 K/mm3 (0-0.2); Basophils % 0.8 % (0.1-2.0); Eosinophils # 0.5 K/mm3 (0.0-0.4); Eosinophils % 6.3 % (0.1-12.0); Hematocrit 35.5 % (37.0-47.0); Hemoglobin 10.9 g/dL (12.2-16.2); Lymphocytes # 1.9 K/mm3 (0.7-4.5); Lymphocytes % 26.5 K/mm3 (10-50); Mean Corpuscular HGB Conc 30.6 g/dL (31.8-35.4); Mean Corpuscular Hemoglobin 30.1 pg (27.0-31.2); Mean Corpuscular Volume 98.2 fl (81-99); Mean Platelet Volume 7.2 fl (7.4-10.4); Monocytes # 0.4 K/mm3 (0.1-1.0); Monocytes % 6.1 % (1.7-9.3); Neutrophils # 4.3 K/mm3 (1.8-7.8); Neutrophils % 60.3 % (37.0-80.0); Platelet Count 205 K/mm3 (142-424); Red Blood Count 3.61 M/mm3 (4.20-5.40); Red Cell Distribution Width 15.4 % (11.5-17.5); White Blood Count 7.1 K/mm3 (4.8-10.8)
[2017-07-05 13:04] LABS: Anion Gap 11.6 mEq/L (5-15); Blood Urea Nitrogen 19 mg/dL (7-18); Carbon Dioxide 30 mmol/L (21.0-32.0); Chloride 102 mmol/L (98-107); Creatinine Clearance Estimated 56 mL/min (0-300); Creatinine,Serum 1.03 mg/dL (0.55-1.02); Estimated Glomerular Filt Rate 52 ml/min (>60); GFR (African American) 63 ML/MIN (>60); Glucose 95 mg/dL (74-106); Potassium 4.6 mmoL/L (3.5-5.1); Sodium 139 mmol/L (136-145)
[2017-07-05 13:45] VITALS: BP 147/54; PULSE 78; RESP 18; TEMP 36.7; O2SAT 97
[2017-07-05 14:00] VITALS: BP 144/52; PULSE 79; RESP 18; O2SAT 96
[2017-07-05 14:15] VITALS: BP 145/57; PULSE 76; RESP 18; O2SAT 97
[2017-07-05 14:30] VITALS: BP 141/59; PULSE 77; RESP 18; O2SAT 97
== END 2017-07-05 14:30 | disposition home or self-care (01) ==
LOC: INF 12:59
PROVIDERS: PCP Family Medicine; Visit Provider Internal Medicine
DX: Z51.11 Encounter for antineoplastic chemotherapy (principal); C34.90 Malignant neoplasm of unspecified part of unspecified bronchus or lung
CPT/HCPCS: 80048; 85025; 96413; J9271

== ENCOUNTER → 2017-07-07 08:31 | Outpatient (CLI) | payer MEDICARE, SELFPAY ==
--- NOTE | 2017-07-07 08:38 | CT_ITS ---
CT chest w con COMPARISON: CT scan the chest for CT guided fine needle biopsy 03/29/2017 HISTORY: Known squamous cell carcinoma currently on Keytruda TECHNIQUE: Multiaxial scans obtained from the thoracic inlet to the hemidiaphragms and were performed with IV contrast. Sagittal and coronal reformats were evaluated as well. FINDINGS: There is excellent vascular opacification. The lung fernando are well expanded. The pleural-based mass right lower lobe has shown marked interval decrease in size from the appearance of the mass at the time of the CT guided fine needle biopsy. Has there been interval radiotherapy? The mass currently measures 2.9 x 1.4 cm on the axial image whereas previously it measured 3.0 x 3.8 cm. The lung fernando are otherwise clear bilaterally with no suspicious pulmonary nodules. There is no pleural fluid. There is mild to moderate generalized cardiomegaly with mild aortic tortuosity. There is no abnormal superior mediastinal or hilar lymphadenopathy. IMPRESSION: Marked interval decrease in size of the pleural-based mass right lower lobe, other findings as described above
--- NOTE | 2017-07-07 08:38 | CT_ITS ---
CT abdomen pelvis w con COMPARISON: None HISTORY: Known squamous cell carcinoma of the lung TECHNIQUE: Multiaxial scans obtained from hemidiaphragms to the pelvic floor and were performed with IV and oral contrast. Sagittal and coronal reformats were evaluated as well. FINDINGS: The adrenal glands are normal bilaterally. There is a small hiatal hernia. The liver spleen and stomach appear normal. There probably has been a previous cholecystectomy is mild diffuse dilatation of the common bile duct measuring 9 mm in diameter but tapering somewhat near the ampulla. The kidneys are lower limits of normal size and show symmetrical function with 2 tiny benign-appearing cortical cysts left kidney. There is very marked arteriosclerotic calcification of the abdominal aorta extending into the proximal, iliac arteries but there is no aneurysm. Small bowel appears normal. I do not definitely identify the appendix but there are no pericecal inflammatory changes. There is a moderately large amount stool throughout the colon. There is mild redundancy and elongation of the sigmoid colon and there is mild diffuse diverticulosis of the sigmoid colon but there is no diverticulitis. There is been previous hysterectomy. Urinary bladder appears grossly normal, there is no free fluid in the pelvis. There are mild degenerative changes of the upper lumbar spine at the L1-2 and L2-3 levels. IMPRESSION: Findings of mild constipation with mild diverticulosis of the sigmoid colon which is somewhat redundant, other chronic findings as described above
--- NOTE | 2017-07-07 09:18 | HMH.ITSHM ---
METFORMIN,LEVOTHYROXINE,CHLORDIAZEPOX,SPIRONOLATTONE, CLOPIDOGRE.,CARVDILO,LISINOPRIL,TOLTERODINE,PANTOPRAZOLE,SIMVASTIN, DOXASONSIN,PARIXETUBEMASPIRINM,
== END ==
PROVIDERS: PCP Family Medicine; Visit Provider Internal Medicine
DX: C34.90 Malignant neoplasm of unspecified part of unspecified bronchus or lung (principal); Z03.89 Encounter for observation for other suspected diseases and conditions ruled out
CPT/HCPCS: 71260; 74177; Q9967

== ENCOUNTER 2017-08-01 10:13 | Outpatient (CLI) | payer MEDICARE, SELFPAY ==
[2017-08-01 10:01] VITALS: BMI 32.3
[2017-08-01 10:15] LABS: Basophils # 0.1 K/mm3 (0-0.2); Basophils % 0.7 % (0.1-2.0); Eosinophils # 0.4 K/mm3 (0.0-0.4); Eosinophils % 6.4 % (0.1-12.0); Hematocrit 35.6 % (37.0-47.0); Hemoglobin 11.3 g/dL (12.2-16.2); Lymphocytes # 1.5 K/mm3 (0.7-4.5); Lymphocytes % 22.7 K/mm3 (10-50); Mean Corpuscular HGB Conc 31.7 g/dL (31.8-35.4); Mean Corpuscular Hemoglobin 30.1 pg (27.0-31.2); Mean Platelet Volume 7.1 fl (7.4-10.4); Monocytes # 0.3 K/mm3 (0.1-1.0); Monocytes % 4.7 % (1.7-9.3); Neutrophils # 4.4 K/mm3 (1.8-7.8); Neutrophils % 65.5 % (37.0-80.0); Platelet Count 207 K/mm3 (142-424); Red Blood Count 3.75 M/mm3 (4.20-5.40); Red Cell Distribution Width 15.3 % (11.5-17.5); White Blood Count 6.6 K/mm3 (4.8-10.8)
[2017-08-01 11:45] VITALS: BP 124/64; PULSE 79; RESP 18; TEMP 37.1; O2SAT 98
[2017-08-01 12:00] VITALS: BP 146/69; PULSE 76; RESP 18
[2017-08-01 12:15] VITALS: BP 155/68; PULSE 75; RESP 18
[2017-08-01 12:30] VITALS: BP 144/92; PULSE 76; RESP 18
[2017-08-01 12:45] VITALS: BP 159/60; PULSE 80; RESP 18
== END 2017-08-01 12:45 | disposition home or self-care (01) ==
LOC: INF 10:13
PROVIDERS: PCP Family Medicine; Visit Provider Internal Medicine
DX: Z51.11 Encounter for antineoplastic chemotherapy (principal); C34.92 Malignant neoplasm of unspecified part of left bronchus or lung
CPT/HCPCS: 85025; 96413; J9271

== ENCOUNTER 2017-08-22 10:00 | Outpatient (CLI) | payer MEDICARE, SELFPAY ==
[2017-08-22 10:00] VITALS: BMI 32.3
[2017-08-22 10:24] LABS: Basophils # 0.1 K/mm3 (0-0.2); Basophils % 0.9 % (0.1-2.0); Eosinophils # 0.5 K/mm3 (0.0-0.4); Eosinophils % 6.5 % (0.1-12.0); Hemoglobin 11.4 g/dL (12.2-16.2); Lymphocytes # 1.7 K/mm3 (0.7-4.5); Lymphocytes % 22.2 K/mm3 (10-50); Mean Corpuscular HGB Conc 30.9 g/dL (31.8-35.4); Mean Corpuscular Hemoglobin 29.7 pg (27.0-31.2); Mean Corpuscular Volume 96.1 fl (81-99); Mean Platelet Volume 6.9 fl (7.4-10.4); Monocytes # 0.4 K/mm3 (0.1-1.0); Neutrophils % 65.4 % (37.0-80.0); Platelet Count 212 K/mm3 (142-424); Red Blood Count 3.85 M/mm3 (4.20-5.40); Red Cell Distribution Width 15.2 % (11.5-17.5); White Blood Count 7.7 K/mm3 (4.8-10.8)
[2017-08-22 10:55] VITALS: BP 128/62; PULSE 68; RESP 20; TEMP 36.7; O2SAT 96
[2017-08-22 11:25] VITALS: BP 130/62; PULSE 68; RESP 20; TEMP 37.1; O2SAT 96
[2017-08-22 12:00] VITALS: BP 132/60; PULSE 66; RESP 20; TEMP 36.7; O2SAT 96
== END 2017-08-22 12:10 | disposition home or self-care (01) ==
LOC: INF 10:00
PROVIDERS: PCP Family Medicine; Visit Provider Internal Medicine
DX: Z51.11 Encounter for antineoplastic chemotherapy (principal); C34.90 Malignant neoplasm of unspecified part of unspecified bronchus or lung
CPT/HCPCS: 85025; 96413; J9271

== ENCOUNTER 2017-09-13 10:15 | Outpatient (CLI) | payer MEDICARE, SELFPAY ==
[2017-09-13 10:21] VITALS: BMI 30.9
[2017-09-13 10:43] LABS: Basophils # 0.1 K/mm3 (0-0.2); Basophils % 0.6 % (0.1-2.0); Eosinophils # 0.5 K/mm3 (0.0-0.4); Eosinophils % 4.6 % (0.1-12.0); Hematocrit 38.3 % (37.0-47.0); Hemoglobin 11.5 g/dL (12.2-16.2); Lymphocytes # 1.8 K/mm3 (0.7-4.5); Lymphocytes % 17.3 K/mm3 (10-50); Mean Corpuscular HGB Conc 30.1 g/dL (31.8-35.4); Mean Corpuscular Hemoglobin 29.2 pg (27.0-31.2); Mean Corpuscular Volume 97.2 fl (81-99); Mean Platelet Volume 7.2 fl (7.4-10.4); Monocytes # 0.5 K/mm3 (0.1-1.0); Monocytes % 4.5 % (1.7-9.3); Neutrophils # 7.5 K/mm3 (1.8-7.8); Neutrophils % 73.1 % (37.0-80.0); Platelet Count 212 K/mm3 (142-424); Red Blood Count 3.94 M/mm3 (4.20-5.40); Red Cell Distribution Width 14.6 % (11.5-17.5); White Blood Count 10.2 K/mm3 (4.8-10.8)
[2017-09-13 10:56] LABS: Alanine Aminotransferase 15 U/L (12-78); Albumin Level 3.4 gm/dL (3.4-5.0); Albumin/Globulin Ratio 0.9 (1.1-1.8); Alkaline Phosphatase 101 U/L (46-116); Anion Gap 10.6 mEq/L (5-15); Aspartate Amino Transferase 14 U/L (15-37); Bilirubin,Total 0.2 mg/dL (0.2-1.0); Blood Urea Nitrogen 14 mg/dL (7-18); Carbon Dioxide 29 mmol/L (21.0-32.0); Chloride 104 mmol/L (98-107); Creatinine Clearance Estimated 54 mL/min (0-300); Creatinine,Serum 0.84 mg/dL (0.55-1.02); Estimated Glomerular Filt Rate 65 ml/min (>60); GFR (African American) 79 ML/MIN (>60); Glucose 101 mg/dL (74-106); Potassium 4.6 mmoL/L (3.5-5.1); Sodium 139 mmol/L (136-145); Total Protein,Serum 7.4 gm/dL (6.4-8.2)
== END 2017-09-13 12:48 | disposition home or self-care (01) ==
LOC: INF 10:18
PROVIDERS: PCP Family Medicine; Visit Provider Internal Medicine
DX: Z51.11 Encounter for antineoplastic chemotherapy (principal); C34.90 Malignant neoplasm of unspecified part of unspecified bronchus or lung
CPT/HCPCS: 80053; 85025

== ENCOUNTER → 2017-09-14 10:45 | Outpatient (CLI) | payer MEDICARE, SELFPAY ==
--- NOTE | 2017-09-14 10:49 | CT_ITS ---
CT chest w con HISTORY: Follow-up squamous cell carcinoma ITS.REASON: SQUEMOUS CELL CA ORDERING PHYSICIAN: Mikhail Felipe MD PATIENT AGE: 81 years COMPARISON: 07/07/2017 TECHNIQUE: Axial images obtained following the administration of 75 mL of Isovue 370 . Sagittal, and coronal reformatted images are also generated and reviewed. All CT scans at the facility use one or more dose reduction, viz: automated exposure control; ma/kV adjustment per patient size (including targeted exams where dose is matched to indication; i.e. head); or iterative reconstruction technique. FINDINGS: There is been prior thyroid surgery with multiple surgical clips in the thyroid bed. There are a few small pretracheal lymph nodes and a stable precarinal lymph node at 1.5 x 1 cm. There are extensive coronary artery calcifications as well as calcification of the aortic arch. Artifact is present from cardiac pacemaker device. No mediastinal or hilar mass or adenopathy. There are centrilobular emphysematous changes. There is a parenchymal opacity once again noted in the right lower lobe laterally which is slightly decreased in size compared to the previous study measuring 2.2 x 0.8 cm previously 2.9 x 1.4 cm. No chest wall invasion evident. No effusions. There are mild fibrotic changes in the left lung base. No acute bony anomalies. IMPRESSION: 1. Further decrease in size in the right lower lobe neoplasm 2. Centrilobular emphysema
--- NOTE | 2017-09-14 10:49 | CT_ITS ---
CT abdomen pelvis w con CLINICAL INDICATION: Follow-up lung cancer ITS.REASON: SQUAMOUS CELL CA ORDERING PHYSICIAN: Mikhail Felipe MD PATIENT AGE: 81 years COMPARISON: 07/07/2017 TECHNIQUE: Axial images obtained with sagittal and coronal reformats. All CT scans at the facility use one or more dose reduction, viz: automated exposure control; ma/kV adjustment per patient size (including targeted exams where dose is matched to indication; i.e. head); or iterative reconstruction technique. PROCEDURE: Oral Contrast: Redicat IV Contrast: 75 mL's of Isovue-370 performed in conjunction with chest CT. FINDINGS: No focal liver lesion. There is been prior cholecystectomy. The spleen and adrenal glands and pancreas have an unremarkable appearance. No intestinal obstruction or free air. No renal or ureteral calculi. 16 mm cyst involves the left kidney. There are scattered small mesenteric lymph nodes the largest node is anterior to the aorta measures approximately 2 x 1.3 cm. This node may be present on the previous study but slightly rotated and displaced by the overlying bowel. No pelvic mass or abnormal fluid collection. Prior hysterectomy. There is mild amount colonic feces and there is sigmoid diverticulosis with no evidence of diverticulitis. No evidence of appendicitis. There is mild wedging of L2 and L3 not significant change. IMPRESSION: 1. Stable CT appearance of the abdomen. No convincing evidence of metastatic disease. 2. Mildly prominent mesenteric lymph nodes probably unchanged. There are few small mesenteric nodes present
== END ==
PROVIDERS: PCP Family Medicine; Visit Provider Internal Medicine
DX: Z03.89 Encounter for observation for other suspected diseases and conditions ruled out (principal); C34.90 Malignant neoplasm of unspecified part of unspecified bronchus or lung
CPT/HCPCS: 71260; 74177; Q9967

== ENCOUNTER → 2017-09-15 10:28 | Outpatient (CLI) | payer MEDICARE, SELFPAY ==
--- NOTE | 2017-09-15 10:33 | XR_ITS ---
XR chest 2V HISTORY: ITS.REASON: SOB, PANLOBULAR EMPHYSEMA, LUNG CA ORDERING PHYSICIAN: Adela Lewis PATIENT AGE: 81 years COMPARISON: 06/09/2017 FINDINGS: There is cardiomegaly without failure. Bipolar pacemaker is present from right subclavian approach. Right lower lobe mass is once again noted but is less apparent when compared to the previous exam. No new nodules evident. No effusions or infiltrates. No acute bony anomalies. IMPRESSION: Cardiomegaly with bipolar pacemaker with further decrease in size of right lower lobe mass
== END ==
PROVIDERS: PCP Family Medicine; Visit Provider Nurse Practitioner Family
DX: C34.91 Malignant neoplasm of unspecified part of right bronchus or lung (principal); R06.02 Shortness of breath; J43.1 Panlobular emphysema
CPT/HCPCS: 71046

== ENCOUNTER → 2017-10-03 11:01 | Outpatient (CLI) | payer MEDICARE, SELFPAY ==
--- NOTE | 2017-10-03 11:05 | XR_ITS ---
XR chest 2V HISTORY: Cough ITS.REASON: FU PNEUMONIA ORDERING PHYSICIAN: Kartik Armas MD PATIENT AGE: 81 years COMPARISON: Portable upright chest 09/24/2017 FINDINGS: The lung fernando are well expanded. There has been interval clearing of the ill-defined pneumonic infiltrate in the right lower lobe the other probably some minimal post inflammatory scarring remaining. The right upper lung field and left lung field are clear. There is borderline cardio megaly and mild aortic tortuosity and there is right-sided cardiac pacemaker with dual chamber electrodes both in good position. IMPRESSION: Essentially resolved right lower lobe pneumonia
== END ==
PROVIDERS: PCP Family Medicine; Visit Provider Family Medicine
DX: Z09 Encounter for follow-up examination after completed treatment for conditions other than malignant neoplasm (principal); J18.1 Lobar pneumonia, unspecified organism
CPT/HCPCS: 71046

== ENCOUNTER → 2017-11-15 07:58 | Outpatient (CLI) | payer MEDICARE, SELFPAY ==
[2017-11-15 08:25] LABS: Alanine Aminotransferase 17 U/L (12-78); Albumin Level 3.5 gm/dL (3.4-5.0); Albumin/Globulin Ratio 0.9 (1.1-1.8); Alkaline Phosphatase 85 U/L (46-116); Anion Gap 12.4 mEq/L (5-15); Aspartate Amino Transferase 11 U/L (15-37); Bilirubin,Total 0.3 mg/dL (0.2-1.0); Blood Urea Nitrogen 16 mg/dL (7-18); Calcium 9.2 mg/dL (8.5-10.1); Carbon Dioxide 30 mmol/L (21.0-32.0); Chloride 100 mmol/L (98-107); Creatinine,Serum 0.86 mg/dL (0.55-1.02); Estimated Glomerular Filt Rate 64 ml/min (>60); GFR (African American) 77 ML/MIN (>60); Globulin 3.9 gm/dl (1.3-3.2); Glucose 123 mg/dL (74-106); Potassium 4.4 mmoL/L (3.5-5.1); Sodium 138 mmol/L (136-145); Total Protein,Serum 7.4 gm/dL (6.4-8.2)
[2017-11-15 08:27] LABS: Basophils # 0.1 K/mm3 (0-0.2); Basophils % 0.7 % (0.1-2.0); Eosinophils # 0.5 K/mm3 (0.0-0.4); Eosinophils % 7.6 % (0.1-12.0); Hematocrit 34.8 % (37.0-47.0); Hemoglobin 11.1 g/dL (12.2-16.2); Lymphocytes # 1.5 K/mm3 (0.7-4.5); Lymphocytes % 21.3 K/mm3 (10-50); Mean Corpuscular HGB Conc 31.8 g/dL (31.8-35.4); Mean Corpuscular Hemoglobin 31.2 pg (27.0-31.2); Mean Corpuscular Volume 98.1 fl (81-99); Mean Platelet Volume 6.6 fl (7.4-10.4); Monocytes # 0.4 K/mm3 (0.1-1.0); Monocytes % 5.2 % (1.7-9.3); Neutrophils # 4.5 K/mm3 (1.8-7.8); Neutrophils % 65.2 % (37.0-80.0); Platelet Count 236 K/mm3 (142-424); Red Blood Count 3.54 M/mm3 (4.20-5.40); Red Cell Distribution Width 14.5 % (11.5-17.5); White Blood Count 6.9 K/mm3 (4.8-10.8)
--- NOTE | 2017-11-15 08:48 | CT_ITS ---
CT chest w con HISTORY: Follow-up lung cancer ITS.REASON: LUNG CA ORDERING PHYSICIAN: Mikhail Felipe MD PATIENT AGE: 81 years COMPARISON: None TECHNIQUE: Axial images obtained following the administration of 75 mL of Isovue 370 . Sagittal, and coronal reformatted images are also generated and reviewed. All CT scans at the facility use one or more dose reduction, viz: automated exposure control, ma/kV adjustment per patient size (including targeted exams where dose is matched to indication, i.e. head), or iterative reconstruction technique. FINDINGS: No mediastinal or hilar mass or adenopathy. Normal heart size. Coronary artery calcifications are present. No evidence of pericardial effusion. There is a small hiatal hernia. No evidence of aortic aneurysm or dissection. No evidence of central pulmonary embolus. There are centrilobular emphysematous changes. Previously noted lesion in the right lower lobe is once again identified and is not significantly changed measuring 2 cm AP and 0.8 cm transverse. Scarring is present in this region as well. No new nodules are apparent. No effusions or infiltrates. Cardiac pacemaker device is present in the right subclavian approach. No acute bony anomalies. No bony destructive process. IMPRESSION: 1. Overall stable CT appearance of the chest. Right lower lobe nodule not significant changed . No new nodules evident. 2. Centrilobular emphysema and other nonacute findings as described above
--- NOTE | 2017-11-15 08:48 | CT_ITS ---
CT abdomen pelvis w con CLINICAL INDICATION: Follow-up lung cancer ITS.REASON: LUNG CA ORDERING PHYSICIAN: Mikhail Felipe MD PATIENT AGE: 81 years COMPARISON: 09/14/2017 TECHNIQUE: Axial images obtained with sagittal and coronal reformats. All CT scans at the facility use one or more dose reduction, viz: automated exposure control, ma/kV adjustment per patient size (including targeted exams where dose is matched to indication, i.e. head), or iterative reconstruction technique. PROCEDURE: Oral Contrast: Redicat IV Contrast: 75 mL's of Isovue-370. FINDINGS: Prior cholecystectomy with mild ductal dilatation as before. No space-occupying lesion of the liver. Spleen and adrenal glands are unremarkable. There are a few small epigastric lymph nodes unchanged. There is a 1.6 cm left renal cyst. No hydronephrosis. There are scattered small mesenteric lymph nodes. No intestinal obstruction or free air. There is diverticulosis of the colon. No evidence of diverticulitis. There is a moderate amount retained colonic feces. No pelvic mass abnormal fluid collection or focal inflammatory change evident within the pelvis. There has been a prior hysterectomy. There are degenerative changes in the lumbar spine. No bony destructive process evident. IMPRESSION: 1. Overall stable CT appearance of the abdomen and pelvis. 2. No convincing evidence of metastatic disease
== END ==
PROVIDERS: PCP Family Medicine; Visit Provider Internal Medicine
DX: C34.90 Malignant neoplasm of unspecified part of unspecified bronchus or lung (principal)
CPT/HCPCS: 36415; 71260; 74177; 80053; 85025; Q9967

== ENCOUNTER → 2018-01-02 10:52 | Outpatient (POV) | payer MEDICARE, SELFPAY | PROVIDERS: PCP Family Medicine; Visit Provider Internal Medicine | DX: Z00.00 Encounter for general adult medical examination without abnormal findings (principal) ==

== ENCOUNTER → 2018-03-02 08:02 | Outpatient (CLI) | payer MEDICARE, SELFPAY ==
--- NOTE | 2018-03-02 | CT_ITS ---
CT abdomen pelvis wo con CLINICAL INDICATION: Follow-up lung cancer ORDERING PHYSICIAN: Angie Eden MD PATIENT AGE: 82 years COMPARISON: 11/15/2017 TECHNIQUE: Axial images obtained with sagittal and coronal reformats. All CT scans at the facility use one or more dose reduction, viz: automated exposure control, ma/kV adjustment per patient size (including targeted exams where dose is matched to indication, i.e. head), or iterative reconstruction technique. PROCEDURE: Oral Contrast: None IV Contrast: None. IV access could not be obtained despite multiple attempts FINDINGS: The liver, spleen, adrenal glands, and pancreas have an unremarkable unenhanced appearance. There has been a prior cholecystectomy without ductal dilatation. No renal mass or renal calculi. There is a small left renal cyst at 1.5 cm. No hydronephrosis. There are scattered small mesenteric lymph nodes in the central mesenteric axis which appear slightly more numerous. The largest mesenteric lymph node is 2.4 x 1.6 cm previously 1.8 x 1.4 cm. No evidence of appendicitis or diverticulitis. There is diverticulosis of the colon but no evidence of diverticulitis. No intestinal obstruction or free air. There has been prior hysterectomy. No pelvic mass or abnormal fluid collection apparent. There is mild wedging of L2 which is unchanged. No bony destructive process apparent. There is a lucent lesion involving the L4 vertebral body is stable may be due to hemangioma. IMPRESSION: 1. Small mesenteric lymph nodes are once again noted and slightly more numerous with the largest node measuring 2.4 x 1.6 cm slightly larger compared to the previous exam. This is of questionable clinical significance. Continued follow-up is suggested. 2. Otherwise negative CT abdomen and pelvis without contrast. No evidence of hepatic or adrenal lesions
--- NOTE | 2018-03-02 | CT_ITS ---
CT chest wo con HISTORY: Follow-up lung cancer ITS.REASON: LUNG CANCER ORDERING PHYSICIAN: Angie Eden MD PATIENT AGE: 82 years COMPARISON: 11/15/2017 Technique: Axial images obtained with sagittal and coronal reformats. All CT scans at the facility use one or more dose reduction, viz: automated exposure control, ma/kV adjustment per patient size (including targeted exams where dose is matched to indication, i.e. head), or iterative reconstruction technique. IV access could not be obtained for contrast administration despite multiple attempts FINDINGS: Surgical clips are present at. Artifact is present from a pacemaker in the right subclavian region. No mediastinal or hilar mass or adenopathy. There are coronary artery calcifications and/or stents noted with a cardiac pacemaker device present. Normal heart size without evidence of pericardial effusion. There is a small hiatal hernia. There are centrilobular emphysematous changes. 3 mm noncalcified nodule right upper lobe unchanged. Scattered areas of scarring are once again noted unchanged. The previously noted parenchymal opacity in the right lower lobe posteriorly is unchanged. This was the area of previously noted and biopsied lung mass smaller than when compared to 07/07/2017 and unchanged from 11/15/2017. No new nodules are evident. No effusions. No lobar consolidation or collapse. No acute bony anomalies. IMPRESSION: 1. Overall stable CT appearance of the chest. 2. Residual irregular opacity in the right lung base posterolaterally is unchanged. The dimensions are difficult to accurately measure due to the lack irregular appearance but does not appear significantly changed with a maximum AP dimension of 3.4 cm and transverse dimension of 0.9 cm which is similar to the previous exam. 3. Centrilobular emphysema
[2018-03-02 09:31] LABS: Blood Urea Nitrogen 16 mg/dL (7-18); Creatinine,Serum 0.72 mg/dL (0.55-1.02); Estimated Glomerular Filt Rate 78 ml/min (>60); GFR (African American) 94 ML/MIN (>60)
== END ==
PROVIDERS: PCP Family Medicine; Visit Provider Internal Medicine Medical Oncology
DX: C34.31 Malignant neoplasm of lower lobe, right bronchus or lung (principal)
CPT/HCPCS: 36415; 71250; 74176; 82565; 84520

== ENCOUNTER → 2018-03-26 07:34 | Outpatient (CLI) | payer MEDICARE, SELFPAY ==
--- NOTE | 2018-03-26 07:37 | CI_ITS ---
Cerebrovascular Exam Indications: 433.10 Occlusion/stenosis of carotid artery without cerebral infarction. 785.9 Bruit. IMPRESSIONS 1. The bilateral vertebral arteries are patent with normal antegrade flow. 2. Study suggests 20-49% stenosis involving the right internal carotid artery. 3. Study suggests 50-69% stenosis involving the left internal carotid artery. No change from the study of 20-Aug-2015. 4. Tortuous carotid arteries seen bilaterally. Carotid duplex study. Complete study and Doppler flow study including spectral analysis, color and carranza scale imaging. Height: Height: 154.9cm. Height: 61in. Weight: Weight: 69.9kg. Weight: 153.7lb. Body mass index: BMI: 29.1kg/m^2. Body surface area: BSA: 1.76m^2. Location: Vascular laboratory. Patient status: Outpatient. Tables: Arterial flow: + +--------+--------+ Location V sys V ed + +--------+--------+ Right CCA - proximal 75.4cm/s 14.9cm/s + +--------+--------+ Right CCA - distal 58.1cm/s 9.4cm/s + +--------+--------+ Right ECA 91.1cm/s -------- + +--------+--------+ Right ICA - proximal 91.1cm/s 17.3cm/s + +--------+--------+ Right ICA - mid 143cm/s 30.6cm/s + +--------+--------+ Right ICA - distal 99cm/s 23.2cm/s + +--------+--------+ Right vertebral 43.2cm/s -------- + +--------+--------+ Left CCA - proximal 58.1cm/s 11cm/s + +--------+--------+ Left CCA - distal 83.3cm/s 12.6cm/s + +--------+--------+ Left ECA 72.3cm/s -------- + +--------+--------+ Left ICA - proximal 66.8cm/s 17.3cm/s + +--------+--------+ Left ICA - mid 108cm/s 18.1cm/s + +--------+--------+ Left ICA - distal 71cm/s 17.6cm/s + +--------+--------+ Left vertebral 18.9cm/s -------- + +--------+--------+ Velocity ratios: + + + + + + Right, V sys Right, V ed Left, V sys Left, V ed + + + + + + Max ICA/dist CCA 2.46 3.24 1.3 1.44 + + + + + + (Report amended ) Electronically signed by: Rudi Stroud [id number]
--- NOTE | 2018-03-26 07:37 | CA_ITS ---
PROCEDURE: 2-D M-mode and color Doppler study INDICATIONS FOR THE TEST: Chest pain COPD Heart Murmur Tobacco Smoking Palpitations Fatigue Syncope Edema Hypertension+Diabetes Mellitus Rheumatic Fever SOB POOLE Obesity Hyperlipidemia+ Family History HD Additional History PACER PATIENT INFORMATION HEIGHT:61 WEIGHT:149 GENDER: Female B/P:125/77 125/77 2-D/M-MODE INTERPRETATION: 2-D MEASUREMENTS OBSERVED VALUES IN CMS Right Ventricular Dimension (RVDd) 3.3 Interventricular Septum (Thickness)(IVsd) 1.9 Left Ventricular Internal Dimensions(LVIDd) 5.3 Left Ventricular Posterior Wall (Thickness)(LVPWd) 0.9 Aortic Root 3.0 Aortic Cusp Separation 1.9 Left Atrial Dimensions (LAD) 4.8 2D 1. Left atrium is mildly enlarged, left ventricle is normal size, mild concentric left ventricular hypertrophy, visually estimated ejection fraction 40%, there is abnormal motion. 2. Right atrium and right ventricle with Normal contractility. There is a pacemaker is seen in the right ventricle. 3. The aortic valve is thickened and calcified leaflet continue to display mobility. 4. The mitral and tricuspid valve leaflets are minimally thickened. 5. The pulmonic valve is poorly visualized. 6. No significant pericardial effusion noted. DOPPLER INTERROGATION: Doppler interrogation of the aortic, mitral and tricuspid valvular presence of mild mitral and tricuspid regurgitation, tricuspid regurgitation jet velocity is inadequate for calculation of the right ventricular systolic pressure, diastolic parameters are inconclusive. CONCLUSION: 1. Biatrial enlargement, normal left ventricular size, mild concentric left ventricular hypertrophy, visually estimated ejection fraction 40% left ventricle is globally hypokinetic, there is abnormal septal motion. 2. Mildly enlarged right ventricle with normal contractility. 3. Mild mitral and tricuspid regurgitation 4. No significant pericardial effusion noted
== END ==
PROVIDERS: PCP Family Medicine; Visit Provider Internal Medicine
DX: R42 Dizziness and giddiness; I25.10 Atherosclerotic heart disease of native coronary artery without angina pectoris; I65.23 Occlusion and stenosis of bilateral carotid arteries; E78.5 Hyperlipidemia, unspecified; Z85.118 Personal history of other malignant neoplasm of bronchus and lung; Z99.81 Dependence on supplemental oxygen; I11.9 Hypertensive heart disease without heart failure
CPT/HCPCS: 93306; 93880

== ENCOUNTER → 2018-05-08 12:31 | Outpatient (CLI) | payer MEDICARE, SELFPAY ==
[2018-05-08 15:15] LABS: Blood Urea Nitrogen 15 mg/dL (7-18); Creatinine,Serum 0.71 mg/dL (0.55-1.02); Estimated Glomerular Filt Rate 79 ml/min (>60); GFR (African American) 96 ML/MIN (>60)
== END ==
PROVIDERS: Visit Provider Internal Medicine Medical Oncology
DX: Z01.818 Encounter for other preprocedural examination (principal)
CPT/HCPCS: 36415; 82565; 84520

== ENCOUNTER → 2018-05-09 09:15 | Outpatient (CLI) | payer MEDICARE, SELFPAY ==
--- NOTE | 2018-05-09 09:35 | CT_ITS ---
CT chest w con HISTORY: Follow-up lung cancer ITS.REASON: LUNG CA ORDERING PHYSICIAN: Angie Eden MD PATIENT AGE: 82 years COMPARISON: 03/02/2018 TECHNIQUE: Axial images obtained following the administration of 75 mL of Optiray 350. Sagittal, and coronal reformatted images are also generated and reviewed. All CT scans at the facility use one or more dose reduction, viz: automated exposure control, ma/kV adjustment per patient size (including targeted exams where dose is matched to indication, i.e. head), or iterative reconstruction technique. FINDINGS: No mediastinal or hilar mass or adenopathy. There are coronary artery calcifications. No evidence of aortic aneurysm, central pulmonary embolus, or pericardial effusion. There are diffuse centrilobular and paraseptal emphysematous changes. There is fibrotic change in the right middle lobe. Irregular opacity in the right lower lobe once again noted and is not significantly changed. A 3 mm noncalcified nodule is present in the left upper lobe nonspecific. Stable subpleural nodules noted in the left upper lobe laterally 4 mm. Atheromatous changes involve the aorta and coronary arteries. Cardiac pacemaker device is present from right subclavian approach. IMPRESSION: 1. Overall stable CT appearance of the chest with centrilobular and paraseptal emphysema 2. No change in the irregular parenchymal opacity in the right lower lobe
--- NOTE | 2018-05-09 09:35 | CT_ITS ---
CT abdomen pelvis w con CLINICAL INDICATION: Follow-up lung cancer ITS.REASON: LUNG CA ORDERING PHYSICIAN: Angie Eden MD PATIENT AGE: 82 years COMPARISON: None TECHNIQUE: Axial images obtained with sagittal and coronal reformats. All CT scans at the facility use one or more dose reduction, viz: automated exposure control, ma/kV adjustment per patient size (including targeted exams where dose is matched to indication, i.e. head), or iterative reconstruction technique. PROCEDURE: Oral Contrast: Redicat IV Contrast: 75 mL of Isovue-370. FINDINGS: Postcholecystectomy change. No focal liver lesion. The spleen, adrenal glands, and pancreas have an unremarkable appearance. Stomach is nondistended with thickening of the gastric wall which may be due to the underdistention. There is a 14 mm left renal cysts. No abdominal mass or adenopathy. No intestinal obstruction or free air or focal inflammatory change. No acute bony findings. No pelvic mass or abnormal fluid collection evident. There has been a prior hysterectomy. There is diverticulosis of the sigmoid colon but no evidence of diverticulitis. There are scattered small mesenteric lymph nodes once again noted not significantly changed. There is mild chronic wedging of L2 and there is diffuse atheromatous changes of the abdominal aorta and its branches. IMPRESSION: Overall no change with no acute finding. No convincing evidence of abdominal metastasis Scattered small mesenteric lymph nodes do not appear significantly changed
== END ==
PROVIDERS: PCP Family Medicine; Visit Provider Internal Medicine Medical Oncology
DX: C34.90 Malignant neoplasm of unspecified part of unspecified bronchus or lung (principal)
CPT/HCPCS: 71260; 74177; Q9967

== ENCOUNTER → 2018-05-21 12:28 | Outpatient (CLI) | payer MEDICARE, SELFPAY ==
[2018-05-21 15:37] LABS: Anion Gap 9.6 mEq/L (5-15); Blood Urea Nitrogen 16 mg/dL (7-18); Calcium 8.8 mg/dL (8.5-10.1); Carbon Dioxide 31 mmol/L (21.0-32.0); Chloride 103 mmol/L (98-107); Creatinine,Serum 0.71 mg/dL (0.55-1.02); Estimated Glomerular Filt Rate 79 ml/min (>60); GFR (African American) 96 ML/MIN (>60); Glucose 92 mg/dL (74-106); Potassium 4.6 mmoL/L (3.5-5.1); Sodium 139 mmol/L (136-145)
== END ==
PROVIDERS: Visit Provider Physician Assistant
DX: I42.9 Cardiomyopathy, unspecified (principal); I50.9 Heart failure, unspecified
CPT/HCPCS: 36415; 80048; 83880

== ENCOUNTER 2018-08-02 12:37 | Observation (INO) | payer MEDICARE, SELFPAY ==
[2018-08-02] VITALS (10 sets, daily range): BP systolic 101–156; BP diastolic 53–86; PULSE 65–96; RESP 16–18; TEMP 36.6–36.9; O2SAT 90–99; BMI 29.0; BMI 28.9
[2018-08-02 13:20] LABS: Basophils % 0.3 % (0.1-2.0); Eosinophils # 0.1 K/mm3 (0.0-0.4); Eosinophils % 0.4 % (0.1-12.0); Hemoglobin 12.7 g/dL (12.2-16.2); Lymphocytes # 0.8 K/mm3 (0.7-4.5); Lymphocytes % 6.9 % (10-50); Mean Corpuscular HGB Conc 32.6 g/dL (31.8-35.4); Mean Corpuscular Hemoglobin 31.7 pg (27.0-31.2); Mean Corpuscular Volume 97.1 fl (81-99); Mean Platelet Volume 6.8 fl (7.4-10.4); Monocytes # 0.8 K/mm3 (0.1-1.0); Monocytes % 6.4 % (1.7-9.3); Neutrophils # 10.4 K/mm3 (1.8-7.8); Platelet Count 252 K/mm3 (142-424); Red Blood Count 4.01 M/mm3 (4.20-5.40); Red Cell Distribution Width 13.5 % (11.5-17.5); White Blood Count 12.1 K/mm3 (4.8-10.8)
[2018-08-02 13:22] LABS: MANUAL DIFFERENTIAL MANUAL DIFFERENTIAL (MANUAL DIFF)
[2018-08-02 13:38] LABS: Lactic Acid 1.3 mmol/L (0.4-2.0)
[2018-08-02 13:40] LABS: Alanine Aminotransferase 28 U/L (12-78); Albumin/Globulin Ratio 0.8 (1.1-1.8); Alkaline Phosphatase 126 U/L (46-116); Anion Gap 18.3 mEq/L (5-15); Bilirubin,Total 0.3 mg/dL (0.2-1.0); Blood Urea Nitrogen 40 mg/dL (7-18); Calcium 9.4 mg/dL (8.5-10.1); Carbon Dioxide 23 mmol/L (21.0-32.0); Chloride 100 mmol/L (98-107); Creatinine Clearance Estimated 26 mL/min (50-200); Creatinine,Serum 1.94 mg/dL (0.55-1.02); Estimated Glomerular Filt Rate 25 ml/min (>60); GFR (African American) 30 ML/MIN (>60); Glucose 143 mg/dL (74-106); Sodium 136 mmol/L (136-145)
[2018-08-02 13:43] LABS: Aspartate Amino Transferase 26 U/L (15-37); Potassium 5.3 mmoL/L (3.5-5.1)
[2018-08-02 14:10] LABS: Lymphocytes % 6 % (10-50); Monocytes % 4 % (2-9); Neutrophils % 81 % (42-76); Platelet Estimate Normal; RBC Morphology Normal; Total Cells Counted 100
--- NOTE | 2018-08-02 15:34 | HMH.EDGENADL ---
ED Disposition Clinical Impression: Enterocolitis, Dehydration, moderate Disposition: Admitted as Observation Condition on Discharge: Good Referrals: Kartik Armas MD [Primary Care Provider] - Time of Disposition: 17:56 - Critical Care Critical Care Time: No Attestation: On 08/02/18, the high probability of a clinically significant, sudden or life threatening deterioration of the following system(s) required my full and direct attention, intervention and personal management. The time I documented below is in addition to time spent performing reported procedures but includes the following listed in this critical care notation. Medical Decision Making - Medical Records Medical records reviewed: Yes: I reviewed the patient's medical records. - Johnny Inquiry Pt receiving controlled substance: No Johnny was queried for this patient: No Vital Signs: 08/02/18 12:38 08/02/18 12:54 08/02/18 14:20 Temperature 98.5 F Temperature Source Oral Pulse Rate [Left Radial] 84 95 H 72 Respiratory Rate 16 Blood Pressure [Right Arm] 141/57 H 114/81 134/53 L Blood Pressure Mean [Right Arm] 85 92 80 Blood Pressure Source [Right Arm] Automatic Cuff Blood Pressure Position [Right Arm] Sitting 02 Sat by Pulse Oximetry 98 99 97 Oxygen Delivery Method Room Air Oxygen Flow Rate (LPM) 08/02/18 15:44 08/02/18 17:30 Temperature Temperature Source Pulse Rate [Left Radial] 84 96 H Respiratory Rate 16 Blood Pressure [Right Arm] 136/62 154/86 H Blood Pressure Mean [Right Arm] 86 108 Blood Pressure Source [Right Arm] Automatic Cuff Blood Pressure Position [Right Arm] Sitting 02 Sat by Pulse Oximetry 96 90 L Oxygen Delivery Method Nasal Cannula Oxygen Flow Rate (LPM) 2 - Lab Data Lab results reviewed: Yes: I reviewed the patient's lab results. Lab Results 08/02/18 13:10: WBC 12.1 H, RBC 4.01 L, Hgb 12.7, Hct 39.0, MCV 97.1, MCH 31.7 H, MCHC 32.6, RDW 13.5, Plt Count 252, MPV 6.8 L, Neut % (Auto) 86.0 H, Lymph % (Auto) 6.9 L, [place] % (Auto) 6.4, Eos % (Auto) 0.4, Baso % (Auto) 0.3, Neut # (Auto) 10.4 H, Lymph # (Auto) 0.8, [place] # (Auto) 0.8, Eos # (Auto) 0.1, Baso # (Auto) 0.0, Total Counted 100, Neutrophils % (Manual) 81 H, Band Neutrophils % 9.0 H, Lymphocytes % (Manual) 6 L, Monocytes % (Manual) 4, Platelet Estimate Normal, RBC Morphology Normal 08/02/18 13:10: Sodium 136, Potassium 5.3 H, Chloride 100, Carbon Dioxide 23, Anion Gap 18.3 H, BUN 40 H, Creatinine 1.94 H, Estimated Creat Clear 26, Estimated GFR 25 L, Est GFR ( Amer) 30 L, Glucose 143 H, Calcium 9.4, Total Bilirubin 0.3, AST 26, ALT 28, Alkaline Phosphatase 126 H, Total Protein 9.0 H, Albumin 4.0, Globulin 5.0 H, Albumin/Globulin Ratio 0.8 L 08/02/18 13:10: Lactate 1.3 08/02/18 15:00: Urine Color Yellow, Urine Appearance Clear, Urine pH 5.5, Ur Specific [place] >= 1.030, Urine Protein Trace, Urine Glucose (UA) Negative, Urine Ketones Trace, Urine Blood Negative, Urine Nitrate Negative, Urine Bilirubin Negative, Urine Urobilinogen 0.2, Ur Leukocyte Esterase Negative, Urine WBC 3-5, Ur Squamous Epith Cells Occasional, Urine Bacteria 2+ 08/02/18 16:10: Gastric Occult Blood Positive Result diagrams: 08/02/18 13:10 08/02/18 13:10 Orders (Tests/Meds): ED MEDICATIONS Generic Name Dose Route Start Last Admin Trade Name Freq PRN Reason Stop Dose Admin Sodium Chloride 1,000 mls @ 500 mls/hr 08/02/18 16:00 08/02/18 15:59 Sod Chlor 0.9% 1000ml Bag IV 09/01/18 15:59 500 mls/hr .Q2H ANNE-MARIE Administration Discontinued Medications Generic Name Dose Route Start Last Admin Trade Name Freq PRN Reason Stop Dose Admin Sodium Chloride 1,000 mls @ 999 mls/hr 08/02/18 12:45 08/02/18 13:22 Sod Chlor 0.9% 1000ml Bag IV 08/02/18 13:45 999 mls/hr .Q1H1M ANNE-MARIE Administration Ondansetron HCl 4 mg 08/02/18 12:43 08/02/18 13:22 Zofran 4mg/2ml Vial IV 08/02/18 12:44 4 mg ONCE ONE Administration Ondansetron HCl 4 mg 08/02/18 15:
--- NOTE | 2018-08-02 15:44 | ED_ITS ---
ED Disposition Clinical Impression: Enterocolitis, Dehydration, moderate Disposition: Admitted as Observation Condition on Discharge: Good Referrals: Kartik Armas MD [Primary Care Provider] - Time of Disposition: 17:56 - Critical Care Critical Care Time: No Attestation: On 08/02/18, the high probability of a clinically significant, sudden or life threatening deterioration of the following system(s) required my full and direct attention, intervention and personal management. The time I documented below is in addition to time spent performing reported procedures but includes the following listed in this critical care notation. Medical Decision Making - Medical Records Medical records reviewed: Yes: I reviewed the patient's medical records. - Johnny Inquiry Pt receiving controlled substance: No Johnny was queried for this patient: No Vital Signs: 08/02/18 12:38 08/02/18 12:54 08/02/18 14:20 Temperature 98.5 F Temperature Source Oral Pulse Rate [Left Radial] 84 95 H 72 Respiratory Rate 16 Blood Pressure [Right Arm] 141/57 H 114/81 134/53 L Blood Pressure Mean [Right Arm] 85 92 80 Blood Pressure Source [Right Arm] Automatic Cuff Blood Pressure Position [Right Arm] Sitting 02 Sat by Pulse Oximetry 98 99 97 Oxygen Delivery Method Room Air Oxygen Flow Rate (LPM) 08/02/18 15:44 08/02/18 17:30 Temperature Temperature Source Pulse Rate [Left Radial] 84 96 H Respiratory Rate 16 Blood Pressure [Right Arm] 136/62 154/86 H Blood Pressure Mean [Right Arm] 86 108 Blood Pressure Source [Right Arm] Automatic Cuff Blood Pressure Position [Right Arm] Sitting 02 Sat by Pulse Oximetry 96 90 L Oxygen Delivery Method Nasal Cannula Oxygen Flow Rate (LPM) 2 - Lab Data Lab results reviewed: Yes: I reviewed the patient's lab results. Lab Results 08/02/18 13:10: WBC 12.1 H, RBC 4.01 L, Hgb 12.7, Hct 39.0, MCV 97.1, MCH 31.7 H , MCHC 32.6, RDW 13.5, Plt Count 252, MPV 6.8 L, Neut % (Auto) 86.0 H, Lymph % (Auto) 6.9 L, [place] % (Auto) 6.4, Eos % (Auto) 0.4, Baso % (Auto) 0.3, Neut # (Auto) 10.4 H, Lymph # (Auto) 0.8, [place] # (Auto) 0.8, Eos # (Auto) 0.1, Baso # (Auto) 0.0, Total Counted 100, Neutrophils % (Manual) 81 H, Band Neutrophils % 9.0 H, Lymphocytes % (Manual) 6 L, Monocytes % (Manual) 4, Platelet Estimate Normal, RBC Morphology Normal 08/02/18 13:10: Sodium 136, Potassium 5.3 H, Chloride 100, Carbon Dioxide 23, Anion Gap 18.3 H, BUN 40 H, Creatinine 1.94 H, Estimated Creat Clear 26, Estimated GFR 25 L, Est GFR ( Amer) 30 L, Glucose 143 H, Calcium 9.4, Total Bilirubin 0.3, AST 26, ALT 28, Alkaline Phosphatase 126 H, Total Protein 9.0 H, Albumin 4.0, Globulin 5.0 H, Albumin/Globulin Ratio 0.8 L 08/02/18 13:10: Lactate 1.3 08/02/18 15:00: Urine Color Yellow, Urine Appearance Clear, Urine pH 5.5, Ur Specific [place] >= 1.030, Urine Protein Trace, Urine Glucose (UA) Negative, Urine Ketones Trace, Urine Blood Negative, Urine Nitrate Negative, Urine Bilirubin Negative, Urine Urobilinogen 0.2, Ur Leukocyte Esterase Negative, Urine WBC 3-5, Ur Squamous Epith Cells Occasional, Urine Bacteria 2+ 08/02/18 16:10: Gastric Occult Blood Positive Result diagrams: 08/02/18 13:10 08/02/18 13:10 Orders (Tests/Meds):
--- NOTE | 2018-08-02 15:46 | CT_ITS ---
CT abdomen pelvis wo con INDICATION: Vomiting diarrhea 1 day ITS.REASON: abdominal pain ORDERING PHYSICIAN: Chace Negron MD PATIENT AGE: 82 years COMPARISON: March 02, 2018. May 09, 2018 . TECHNIQUE: No oral or IV contrast utilized Axial images obtained with sagittal and coronal reformats. All CT scans at the facility use one or more dose reduction, viz: automated exposure control, ma/kV adjustment per patient size (including targeted exams where dose is matched to indication, i.e. head), or iterative reconstruction technique. FINDINGS: Lower thorax. No acute disease. Linear scarring and periphery right lung base. Heart likely with mild left atrial enlargement and possible left ventricular enlargement. Dense calcified coronary arteries. Pacemaker... Upper normal wall thickness distal esophagus with small slightlyhiatal hernia Abdomen/pelvis. Lack of oral and IV contrast decreases sensitivity and there is some motion artifact as well. Liver. No focal lesion. Upper normal size caudate lobe Postcholecystectomy changes. No biliary ductal dilatation. Pancreas, spleen unremarkable on this noncontrast study. Adrenal glands unremarkable. The calcifications splenic artery. Dense atherosclerotic calcification throughout aorta: & Branch Vessels: .... Estimated 50-60% cross section stenosis seen on axial image 45. ... Also likely over 60 a 70 % cross-sectional area luminal stenosis the infrarenal abdominal aorta, axial image 53 and again on axial image 64 more inferiorly at the aorta... ... Also generous at atherosclerotic calcification origin of SMA. Likely 60-70% stenosis ... Also generous at the right calcification at the common iliac arteries bilaterally yield. Likely mild stenosis at origin of these vessels These above features similar To previous April study. The kidneys do not appear to be atrophic or decreased in size. No urinary tract calculi nor obstruction Stable benign cyst posterior medial left kidney 17 mm size. GI TRACT Stomach. Fluid-filled moderately distended. Duodenal loop slight increased fluid Small bowel. Increased fluid with moderate air-fluid levels throughout, & becoming most evident at the borderline to slightly dilated distal most small bowel.. Terminal ileum itself appears satisfactory. I would note is located right upper quadrant as is the cecum. No evidence of appendicitis appendix is not discretely visualized on the day nor previous study. No inflammatory changes right abdomen to raise concern. Large bowel. Liquid stool with air-fluid levels are seen throughout the large bowel reflecting diarrhea. Liquid stool and air-fluid levels most evident at the generous caliber but not significantly dilated right colon and hepatic flexure. There is colonic diverticulosis in sigmoid colon but no diverticulitis no free fluid at the pelvis. Urinary bladder upper normal wall thickness. Hysterectomy. No adnexal masses. Osseous structures. Stable old wedge compression fracture L2. Degenerative changes in spine with mild stable scoliosis. Prominent facet hypertrophy lower L-spine IMPRESSION 1. Findings are most likely reflection of enterocolitis Increased fluid with air-fluid levels throughout large and small bowel. Borderline-mild dilated fluid-filled distal small bowel, right lower abdomen 2. Appendix not discretely visualized but I see no good evidence of appendicitis 3. No free fluid. No free air 4.. note extensive atherosclerotic calcifications aorta, as well as SMA origin.-. Multiple areas of moderate stenosis at the abdominal aorta. These appear similar to previous studies but again noted. . I do not see wall thickening or other featu
[2018-08-02 16:03] LABS: Microscopic, Urine URINE MICROSCOPIC (MICROSCOPIC)
[2018-08-02 16:05] LABS: Appearance,Urine CLEAR (Clear); Blood, Urine Negative (Negative); Color,Urine YELLOW (Yellow); Glucose,Urine (UA) Negative (Negative); Ketones,Urine TRACE (Negative); Leukocyte Esterase,Urine Negative (Negative); Nitrate,Urine Negative (Negative); PH,Urine 5.5 (5.0-8.5); Protein,Urine TRACE (Negative); Specific Gravity, Urine >= 1.030 (1.005-1.030); Urobilinogen,Urine 0.2 EU/dl (0.2)
[2018-08-02 16:12] LABS: Bilirubin,Urine Negative (Negative)
[2018-08-02 16:14] LABS: Bacteria,Urine 2+ /lpf; Squamous Epithelial Cell,Urine Occasional #/hpf (0-5)
[2018-08-02 16:40] LABS: Occult Blood,Gastric Fluid Positive (Negative)
--- NOTE | 2018-08-02 16:40 | PC.NURSE ---
pt gone to xray
--- NOTE | 2018-08-02 16:46 | PC.NURSE ---
to ct per stretcher
--- NOTE | 2018-08-02 18:23 | PC.NURSE ---
family at bedside
--- NOTE | 2018-08-02 18:37 | PC.NURSE ---
report called to hilary joseph
--- NOTE | 2018-08-02 19:06 | PC.NURSE ---
pt arrived to floor via wheelchair from ED
[2018-08-02 22:16] LABS: POC Glucose,Bedside 104 (70-110)
[2018-08-03 00:57] LABS: Adenovirus F 40/41, stool Not Detected (NotDetected); Astrovirus Not Detected (NotDetected); Campylobacter Not Detected (NotDetected); Clostridium Difficile A/B, PCR Not Detected (NotDetected); Cryptosporidium Not Detected (NotDetected); Cyclospora Cayetanesis Not Detected (NotDetected); Entamoeba histolytica Not Detected (NotDetected); Enteroaggregative E coli Not Detected (NotDetected); Enteropathogenic E coli Not Detected (NotDetected); Enterotoxigenic E coli Not Detected (NotDetected); Giardia lamblia Not Detected (NotDetected); Norovirus Not Detected (NotDetected); Plesimonas Shigalloides, PCR Not Detected (NotDetected); Salmonella, PCR Not Detected (NotDetected); Sapovirus Not Detected (NotDetected); Shiga-like toxin E coli Not Detected (NotDetected); Shigella Enterovasive E coli Not Detected (NotDetected); Vibrio Cholerae Not Detected (NotDetected); Vibrio, PCR Not Detected (NotDetected); Yersinia Entercolitica, PCR Not Detected (NotDetected)
[2018-08-03 04:00] VITALS: BP 139/58; PULSE 79; RESP 16; TEMP 36.6; O2SAT 96
[2018-08-03 05:12] LABS: Rotavirus A Detected (NotDetected)
[2018-08-03 05:52] VITALS: BMI 28.7
[2018-08-03 06:29] LABS: POC Glucose,Bedside 92 (70-110)
--- NOTE | 2018-08-03 06:32 | PC.NURSE ---
Pt is A&Ox3 and was admitted this shift for enteritis and dehydration. Pt has tolerated IVF's well this shift, no crackles or dyspnea noted. Pt has denied any pain. Pt has denied any nausea. Pt c/o recurrent liquid stools several times and fecal incontinence. Pt slept well for several hours overnight. Diarrhea sample was collected on the floor and submitted for diarrhea panel, which was positive for Rotavirus. Pt was already placed in Contact/Enteric precautions d/t incontinent with diarrhea on admission. Pt was given a total bath, partial bath, and partial linen change this shift. Pt is on 2L per NC, pt is home dependent at this rate and sat' are 96-97% this shift. VSS, call light within reach, will continue to monitor.
[2018-08-03 07:08] LABS: Basophils % 0.2 % (0.1-2.0); Eosinophils # 0.1 K/mm3 (0.0-0.4); Monocytes # 0.5 K/mm3 (0.1-1.0); Neutrophils # 4.1 K/mm3 (1.8-7.8); Red Cell Distribution Width 13.7 % (11.5-17.5); White Blood Count 5.6 K/mm3 (4.8-10.8)
--- NOTE | 2018-08-03 07:31 | P.CONPHA_ITS ---
[facility] Pharmacy VTE Monitoring - Patient Demographics Admission date: 08/02/18 Report Date: 08/03/18 Time: 07:31 Allergies/Adverse Reactions: Patient Allergies Penicillins Allergy (Unknown, Verified 06/18/18 10:20) morphine Adverse Reaction (Severe, Verified 06/18/18 10:20) SHORTNESS OF BREATH Corticosteroids (Glucocorticoids) Adverse Reaction (Unknown, Verified 06/18/18 10:20) STEROIDS MAKE HER SHAKY , NO ALLERGIC REACTION Height: 1.55 m Weight: 69.031 kg Patient Problems: Current Active Problems (Updated 08/02/18 @ 18:30 by Chace Negron MD) Enterocolitis (Acute) Dehydration, moderate (Acute) - VTE Risk Labs: VTE Related Lab Results Hgb 12.7 g/dL (12.2-16.2) 08/02/18 13:10 Hct 39.0 % (37.0-47.0) 08/02/18 13:10 Plt Count 252 K/mm3 (142-424) 08/02/18 13:10 BUN 40 mg/dL (7-18) H 08/02/18 13:10 Creatinine 1.94 mg/dL (0.55-1.02) H 08/02/18 13:10 Estimated Creat Clear 26 mL/min (50-200) 08/02/18 13:10 Was VTE Risk Assessment Performed: Yes VTE Score: 4 VTE Risk Level: Low Risk - Prophylaxis VTE Prophylaxis Ordered?: Yes Types of VTE Prophylaxis: TEDS Knee High Location of Applied Device: Bilateral Lower Extremeties - VTE Diagnosis Confirmed Treatment or plan recommended: Continue Current Treatment
--- NOTE | 2018-08-03 07:32 | HMH.HPDC ---
<Joe Collins - Last Filed: 08/03/18 15:55> General - General Admission date:: 08/02/18 Discharge date: 08/03/18 *Admission Date: 08/02/18 *Chief complaint: Vomiting and diarrhea *History of present illness: 82-year-old female with history of COPD presented to the emergency department after onset of vomiting early yesterday morning that persisted throughout the day and left her quite weak. During the day she also developed diarrhea. By the time the patient presented to the emergency department normally where she week but she continued to retch although had no further emesis. Vomiting did persist and patient reports 2 additional bowel movements overnight. Patient had signs of acute kidney injury on her labs and because of her inability to drink decision was made to admit patient overnight for IV fluids. This morning she reports nausea has improved and she is hungry [facility] History I have reviewed the patient's past medical history: Yes Medical History: Reports:: Cancer, Chronic Obstructive Pulmonary Disease (COPD), Coronary Artery Disease, Diabetes Mellitus Type 2, Hypertension, Internal Pacemaker Denies:: Diabetes Mellitus Type 1 *Have you ever received a pneumonia vaccine?: Yes *Have you received a flu vaccine this season?: Yes Other Medical History: Reports: Thyroid Disease (MASS REMOVED FROM THYROID) Other Surgeries: Yes: Cholecystectomy, Hysterectomy-Total, Hysterectomy-Partial, Pacemaker, Thyroidectomy, Other (MASS REMOVED FROM THYROID) Amputation: No Fractures: No - *Social History Educational Level: Completed High School Smoking Status: Former smoker Tobacco Type: cigarettes # Packs/Day (cigarettes): 2 #Yrs smoked (if former smoker): 30 Alcohol Intake: never Alcohol Intake Frequency:: other Substance Use Type: denies use *Occupational Status:: retired Housing: house Household Members: spouse *Travel in the last 8 weeks: None - Psychiatric History Expresses thoughts of harming self/others: None Suicide Plan Description: No Plan Family Hx:: Cancer Review of Systems - Constitutional Reports fatigue, Denies anorexia, Denies body ache(s), Denies chills, Denies fever(s), Denies headache(s) - ENT Denies abnormal hearing, Denies difficulty swallowing - *Cardiovascular Denies chest pain - *Respiratory Denies chest congestion - *Gastrointestinal Reports loose stools, Reports vomiting - *Musculoskeletal Denies joint pain - *Neurologic Reports weakness Exam Vital signs and Labs for Last 24 Hours: Temp Pulse Resp BP Pulse Ox 97.9 F 79 16 139/58 L 96 08/03/18 04:00 08/03/18 04:00 08/03/18 04:00 08/03/18 04:00 08/03/18 04:00 Laboratory Results - last 24 hr 08/02/18 13:10: WBC 12.1 H, RBC 4.01 L, Hgb 12.7, Hct 39.0, MCV 97.1, MCH 31.7 H, MCHC 32.6, RDW 13.5, Plt Count 252, MPV 6.8 L, Neut % (Auto) 86.0 H, Lymph % (Auto) 6.9 L, [place] % (Auto) 6.4, Eos % (Auto) 0.4, Baso % (Auto) 0.3, Neut # (Auto) 10.4 H, Lymph # (Auto) 0.8, [place] # (Auto) 0.8, Eos # (Auto) 0.1, Baso # (Auto) 0.0, Total Counted 100, Neutrophils % (Manual) 81 H, Band Neutrophils % 9.0 H, Lymphocytes % (Manual) 6 L, Monocytes % (Manual) 4, Platelet Estimate Normal, RBC Morphology Normal 08/02/18 13:10: Sodium 136, Potassium 5.3 H, Chloride 100, Carbon Dioxide 23, Anion Gap 18.3 H, BUN 40 H, Creatinine 1.94 H, Estimated Creat Clear 26, Estimated GFR 25 L, Est GFR ( Amer) 30 L, Glucose 143 H, Calcium 9.4, Total Bilirubin 0.3, AST 26, ALT 28, Alkaline Phosphatase 126 H, Total Protein 9.0 H, Albumin 4.0, Globulin 5.0 H, Albumin/Globulin Ratio 0.8 L 08/02/18 13:10: Lactate 1.3 08/02/18 15:00: Urine Color Yellow, Urine Appearance Clear, Urine pH 5.5, Ur Specific [place] >= 1.030, Urine Protein Trace, Urine Glucose (UA) Negative, Urine Ketones Trace, Urine Blood Negative, Urine Nitrate Negative, Urine Bilirubin Negative, Urine Urobilinogen 0.2, Ur Leukocyte Esterase Negative, Urine WBC 3-5, Ur Squamous Epith Cells Occasional, Urine Bacter
--- NOTE | 2018-08-03 07:35 | P.HPDS_ITS ---
<Joe Collins - Last Filed: 08/03/18 15:55> General - General Admission date:: 08/02/18 Discharge date: 08/03/18 *Admission Date: 08/02/18 *Chief complaint: Vomiting and diarrhea *History of present illness: 82-year-old female with history of COPD presented to the emergency department after onset of vomiting early yesterday morning that persisted throughout the day and left her quite weak. During the day she also developed diarrhea. By the time the patient presented to the emergency department normally where she week but she continued to retch although had no further emesis. Vomiting did persist and patient reports 2 additional bowel movements overnight. Patient had signs of acute kidney injury on her labs and because of her inability to drink decision was made to admit patient overnight for IV fluids. This morning she reports nausea has improved and she is hungry [facility] History I have reviewed the patient's past medical history: Yes Medical History: Reports:: Cancer, Chronic Obstructive Pulmonary Disease (COPD), Coronary Artery Disease, Diabetes Mellitus Type 2, Hypertension, Internal Pacemaker Denies:: Diabetes Mellitus Type 1 *Have you ever received a pneumonia vaccine?: Yes *Have you received a flu vaccine this season?: Yes Other Medical History: Reports: Thyroid Disease (MASS REMOVED FROM THYROID) Other Surgeries: Yes: Cholecystectomy, Hysterectomy-Total, Hysterectomy-Partial, Pacemaker, Thyroidectomy, Other (MASS REMOVED FROM THYROID) Amputation: No Fractures: No - *Social History Educational Level: Completed High School Smoking Status: Former smoker Tobacco Type: cigarettes # Packs/Day (cigarettes): 2 #Yrs smoked (if former smoker): 30 Alcohol Intake: never Alcohol Intake Frequency:: other Substance Use Type: denies use *Occupational Status:: retired Housing: house Household Members: spouse *Travel in the last 8 weeks: None - Psychiatric History Expresses thoughts of harming self/others: None Suicide Plan Description: No Plan Family Hx:: Cancer Review of Systems - Constitutional Reports fatigue, Denies anorexia, Denies body ache(s), Denies chills, Denies fever(s), Denies headache(s) - ENT Denies abnormal hearing, Denies difficulty swallowing - *Cardiovascular Denies chest pain - *Respiratory Denies chest congestion - *Gastrointestinal Reports loose stools, Reports vomiting - *Musculoskeletal Denies joint pain - *Neurologic Reports weakness Exam Vital signs and Labs for Last 24 Hours: Temp Pulse Resp BP Pulse Ox 97.9 F 79 16 139/58 L 96 08/03/18 04:00 08/03/18 04:00 08/03/18 04:00 08/03/18 04:00 08/03/18 04:00 Laboratory Results - last 24 hr 08/02/18 13:10: WBC 12.1 H, RBC 4.01 L, Hgb 12.7, Hct 39.0, MCV 97.1, MCH 31.7 H , MCHC 32.6, RDW 13.5, Plt Count 252, MPV 6.8 L, Neut % (Auto) 86.0 H, Lymph % ( Auto) 6.9 L, [place] % (Auto) 6.4, Eos % (Auto) 0.4, Baso % (Auto) 0.3, Neut # (Auto) 10.4 H, Lymph # (Auto) 0.8, [place] # (Auto) 0.8, Eos # (Auto) 0.1, Baso # (Auto) 0.0, Total Counted 100, Neutrophils % (Manual) 81 H, Band Neutrophils % 9.0 H, Lymphocytes % (Manual) 6 L, Monocytes % (Manual) 4, Platelet Estimate Normal, RBC Morphology Normal 08/02/18 13:10: Sodium 136, Potassium 5.3 H, Chloride 100, Carbon Dioxide 23, Anion Gap 18.3 H, BUN 40 H, Creatinine 1.94 H, Estimated Creat Clear 26, Estimated GFR 25 L, Est GFR ( Amer) 30 L, Glucose 143 H, Calcium 9.4, Total Bilirubin 0.3, AST 26, ALT 28, Alkaline Ph
[2018-08-03 07:37] LABS: Eosinophils % 1.1 % (0.1-12.0); Hematocrit 29.5 % (37.0-47.0); Hemoglobin 9.5 g/dL (12.2-16.2); Lymphocytes % 17.1 % (10-50); Mean Corpuscular HGB Conc 32.1 g/dL (31.8-35.4); Mean Corpuscular Hemoglobin 31.4 pg (27.0-31.2); Mean Corpuscular Volume 97.7 fl (81-99); Mean Platelet Volume 6.9 fl (7.4-10.4); Monocytes % 8.1 % (1.7-9.3); Neutrophils % 73.5 % (37.0-80.0); Platelet Count 170 K/mm3 (142-424); Red Blood Count 3.02 M/mm3 (4.20-5.40)
[2018-08-03 07:40] LABS: Anion Gap 14.3 mEq/L (5-15); Blood Urea Nitrogen 32 mg/dL (7-18); Carbon Dioxide 19 mmol/L (21.0-32.0); Chloride 111 mmol/L (98-107); Creatinine Clearance Estimated 47 mL/min (50-200); Creatinine,Serum 1.04 mg/dL (0.55-1.02); Estimated Glomerular Filt Rate 51 ml/min (>60); GFR (African American) 62 ML/MIN (>60); Glucose 86 mg/dL (74-106); Potassium 4.3 mmoL/L (3.5-5.1); Sodium 140 mmol/L (136-145)
--- NOTE | 2018-08-03 07:55 | PC.NURSE ---
dc'd pts fluids at this time
[2018-08-03 08:00] VITALS: BP 102/66; PULSE 94; RESP 20; TEMP 36.7; O2SAT 93
[2018-08-03 08:04] LABS: Calcium 7.4 mg/dL (8.5-10.1)
--- NOTE | 2018-08-03 09:35 | PC.NURSE ---
pt's supposed to bring home meds
--- NOTE | 2018-08-03 09:49 | HMH.PHAINT ---
MEDICATION RECONCILIATION COMPLETED ON PATIENT USING EXTERNAL FILL HISTORY FROM PHARMACY AND LIST FROM PHYSICIAN'S OFFICE. -CECY PHILLIPSD
--- NOTE | 2018-08-03 10:00 | PC.NURSE ---
when pt's daughter called her father (pt's ) she asked him to bring the bottle of meds for home med use here. when arriving to floor I ask for the meds. pulls out a zip lock bag of pills- no bottles. I advise him that our pharmacy cannot use these- they have to be able to verify them with the rx on the bottle. pt and states they will wait until they go home to take meds or skip them.
[2018-08-03 16:00] VITALS: BP 149/72; PULSE 62; RESP 19; TEMP 37.1; O2SAT 99
== END 2018-08-03 17:16 | disposition home or self-care (01) ==
LOC: ER 17:59 → 2ND 18:31
PROVIDERS: Admitting Provider Family Medicine; Emergency Provider Emergency Medicine; PCP Family Medicine; Visit Provider Family Medicine
DX: A08.0 Rotaviral enteritis (principal); N17.9 Acute kidney failure, unspecified; I25.10 Atherosclerotic heart disease of native coronary artery without angina pectoris; J44.9 Chronic obstructive pulmonary disease, unspecified; E86.0 Dehydration; E11.9 Type 2 diabetes mellitus without complications; I10 Essential (primary) hypertension; E89.0 Postprocedural hypothyroidism; Z90.49 Acquired absence of other specified parts of digestive tract; Z95.0 Presence of cardiac pacemaker; Z90.710 Acquired absence of both cervix and uterus; Z88.5 Allergy status to narcotic agent; Z88.0 Allergy status to penicillin; Z88.8 Allergy status to other drugs, medicaments and biological substances; Z87.891 Personal history of nicotine dependence; Z79.84 Long term (current) use of oral hypoglycemic drugs; Z79.82 Long term (current) use of aspirin; Z79.890 Hormone replacement therapy; Z79.899 Other long term (current) drug therapy; Z85.9 Personal history of malignant neoplasm, unspecified; Z80.9 Family history of malignant neoplasm, unspecified; Z82.49 Family history of ischemic heart disease and other diseases of the circulatory system
CPT/HCPCS: 36415; 74176; 80048; 80053; 81001; 82272; 82962; 83605; 85007; 85025; 87040; 87077; 87086; 87088; 87507; 94761; 96365; 96367; 96375; 99285; G0328; G0378; J2405

== ENCOUNTER → 2018-09-25 10:18 | Outpatient (POV) | payer MEDICARE, SELFPAY | PROVIDERS: Visit Provider Internal Medicine | DX: Z00.00 Encounter for general adult medical examination without abnormal findings (principal) ==

== ENCOUNTER → 2018-10-01 08:26 | Outpatient (CLI) | payer MEDICARE, SELFPAY ==
--- NOTE | 2018-10-01 08:55 | CT_ITS ---
CT chest wo/w con HISTORY: Lung cancer follow-up ITS.REASON: LUNG CA ORDERING PHYSICIAN: Angie Eden MD PATIENT AGE: 82 years COMPARISON: 05/09/2018 Technique: Contrast Used:75ml Optiray 350 Axial images were obtained. Sagittal, and coronal reformatted images are also generated and reviewed. All CT scans at the facility use one or more dose reduction, viz: automated exposure control, ma/kV adjustment per patient size (including targeted exams where dose is matched to indication, i.e. head), or iterative reconstruction technique. FINDINGS There are surgical clips in the paratracheal region in the neck area. Prior right-sided thyroidectomy. No mediastinal or hilar mass. Small right hilar lymph node measures 15 x 11 mm not significant changed. Coronary artery calcifications and/or stents are present and there is an RV pacer with artifact. There is a small hiatal hernia. There is thickening of the gastric mucosa. This may all be due to nondistention. Gastritis is an additional consideration. Centrilobular emphysema with scattered areas of scarring. Irregular opacity is once again noted in the right lower lobe not significantly changed. Upper abdominal images have an unremarkable appearance. No acute bony findings. IMPRESSION: Stable CT appearance of the chest. No change irregular opacity in the right lower lobe which may be due to an area of scarring in a previous area of neoplasm. Centrilobular emphysema with other nonacute findings as described above
== END ==
PROVIDERS: PCP Family Medicine; Visit Provider Internal Medicine Medical Oncology
DX: C34.91 Malignant neoplasm of unspecified part of right bronchus or lung (principal)
CPT/HCPCS: 71270; Q9967

== ENCOUNTER 2018-11-28 19:57 | Observation (INO) ==
[2018-11-28 20:42] LABS: Basophils % 0.6 % (0.1-2.0); Eosinophils # 0.4 K/mm3 (0.0-0.4); Eosinophils % 5.6 % (0.1-12.0); Hematocrit 32.9 % (37.0-47.0); Hemoglobin 10.3 g/dL (12.2-16.2); Lymphocytes # 1.7 K/mm3 (0.7-4.5); Lymphocytes % 26.7 % (10-50); Mean Corpuscular HGB Conc 31.4 g/dL (31.8-35.4); Mean Corpuscular Volume 98.7 fl (81-99); Mean Platelet Volume 6.8 fl (7.4-10.4); Monocytes # 0.4 K/mm3 (0.1-1.0); Monocytes % 5.7 % (1.7-9.3); Neutrophils % 61.4 % (37.0-80.0); Platelet Count 191 K/mm3 (142-424); Red Blood Count 3.33 M/mm3 (4.20-5.40); Red Cell Distribution Width 13.8 % (11.5-17.5); White Blood Count 6.5 K/mm3 (4.8-10.8)
[2018-11-28 20:44] LABS: Anion Gap 14.6 mEq/L (5-15); Calcium 8.8 mg/dL (8.5-10.1)
[2018-11-28 21:17] LABS: Erythrocyte Sedimentation Rate 40 mm/hr (0-30)
--- NOTE | 2018-11-28 21:25 | Emergency Department Note ---
ED Disposition Clinical Impression: Chest pain at rest, Pacemaker COPD (chronic obstructive pulmonary disease) Qualifiers: COPD type: unspecified COPD Qualified Code(s): J44.9 - Chronic obstructive pulmonary disease, unspecified Disposition: Admitted as Observation Condition on Discharge: Fair Referrals: Kartik Armas MD [Primary Care Provider] - - Critical Care Critical Care Time: No Attestation: On 11/28/18, the high probability of a clinically significant, sudden or life threatening deterioration of the following system(s) required my full and direct attention, intervention and personal management. The time I documented below is in addition to time spent performing reported procedures but includes the following listed in this critical care notation. Medical Decision Making - Medical Records Medical records reviewed: Yes: I reviewed the patient's medical records. - Johnny Inquiry Pt receiving controlled substance: No Vital Signs: 11/28/18 19:58 11/28/18 21:50 Temperature 98.0 F Temperature Source Oral Pulse Rate [Left Radial] 89 67 Respiratory Rate 18 18 Blood Pressure [Right Arm] 155/75 H 120/42 L Blood Pressure Mean [Right Arm] 101 68 Blood Pressure Source [Right Arm] Automatic Cuff Automatic Cuff Blood Pressure Position [Right Arm] Supine Sitting 02 Sat by Pulse Oximetry 98 98 Oxygen Delivery Method Nasal Cannula Nasal Cannula Oxygen Flow Rate (LPM) 2 3 - Lab Data Lab results reviewed: Yes: I reviewed the patient's lab results. Lab Results 11/28/18 20:20: WBC 6.5, RBC 3.33 L, Hgb 10.3 L, Hct 32.9 L, MCV 98.7, MCH 31.0, MCHC 31.4 L, RDW 13.8, Plt Count 191, MPV 6.8 L, Neut % (Auto) 61.4, Lymph % (Auto) 26.7, [place] % (Auto) 5.7, Eos % (Auto) 5.6, Baso % (Auto) 0.6, Neut # (Auto) 4.0, Lymph # (Auto) 1.7, [place] # (Auto) 0.4, Eos # (Auto) 0.4, Baso # (Auto) 0.0, ESR 40 H 11/28/18 20:20: Lactate 1.5 11/28/18 20:30: Troponin I < 0.02, C-Reactive Protein 0.3 11/28/18 20:30: Sodium 140, Potassium 4.6, Chloride 103, Carbon Dioxide 27, Anion Gap 14.6, BUN 23 H, Creatinine 0.92, Estimated Creat Clear 49, Estimated GFR 59, Est GFR ( Amer) 71, Glucose 110 H, Calcium 8.8 11/28/18 20:30: B-Natriuretic Peptide 93 Result diagrams: 11/28/18 20:20 11/28/18 20:30 Orders (Tests/Meds): ED MEDICATIONS Generic Name Dose Route Start Last Admin Trade Name Freq PRN Reason Stop Dose Admin Sodium Chloride 1,000 mls @ 999 mls/hr 11/28/18 20:15 11/28/18 20:43 Sod Chlor 0.9% 1000ml Bag IV 11/28/18 21:15 999 mls/hr .Q1H1M ANNE-MARIE Administration Discontinued Medications Generic Name Dose Route Start Last Admin Trade Name Freq PRN Reason Stop Dose Admin Aspirin 324 mg 11/28/18 20:11 11/28/18 20:43 Aspirin 81mg Chewable Tablet PO 11/28/18 20:12 324 mg ONCE ONE Administration Methylprednisolone Sodium Succinate 125 mg 11/28/18 20:11 11/28/18 20:43 Solu-Medrol 125mg/2ml Vial IV 11/28/18 20:12 125 mg ONCE ONE Administration ORDERS Category Date Time Status Chest XR AP view [XR chest AP] Stat Exams 11/28/18 20:10 Taken Blood Culture Stat Micro 11/28/18 20:30 Received - Radiology Data #1 Image(s): Chest Image Reviewed: Yes I reviewed the patient's radiology image Preliminary Findings: Abnormal (cm ) - ECG Data Tracing #1 Arrhythmias present: other (paced) Ischemic changes: non-specific ST-T wave changes Chest Pain HPI - General Chief Complaint: Chest Pain Stated Complaint: chest pain Time Seen by Provider: 11/28/18 20:20 Mode of Arrival: Wheelchair Source of Information: Patient, Relative, Medical Record Limitations: Physical Limitations Description of Symptoms (Recalled from ER Triage Doc. by RN): pt was assisted out of the car by [facility] staff. pt c/o of chest pain described as tightness all over her chest. pt also stated pt has had a cough for about 3 days. 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 - described as tightness - pt has copd and uses o2 at all times - MD complaint: chest pain indicative of cardiac Onset (ago): hour(s) Duration: intermittent Activity at onset: during rest Pain location: substernal Severity: similar to previous episodes Quality: tightness Risk Factors for CAD: Hypertension, Family Hx of CAD, Diabetes Treatments prior to or on arrival for Cardiac Chest Pain: none - REYNA Score for Non-Stemi Age of Patient: 80-89 years old Heart Rate: 70-89 bpm Systolic Blood Pressure: 140-159 mmHg Serum Creatinine: 0.80-1.19 mg/dl CHF [place] Class: I-No CHF Other Risk Factors: None Non-Stemi Risk Score: 131 - Related Data Prior Cardiac Testing/Procedures: Echocardiogram On Oral Contraceptives: No Home Medications Medication Instructions Recorded Confirmed Aspirin [Aspir 81] 81 mg PO DAILY 03/29/17 11/28/18 Metformin HCl [Glucophage 500mg 500 mg PO BID 03/29/17 11/28/18 Tablet] [place]-3 Fatty Acids/Fish Oil [Fish 1 each PO DAILY 03/29/17 11/28/18 Oil 1,000 mg Capsule] PARoxetine HCl [Paxil] 20 mg PO DAILY 03/29/17 11/28/18 Simvastatin 40 mg PO DAILY 03/29/17 11/28/18 chlordiazepoxide 25 mg capsule 25 mg PO BID cap 04/24/17 11/28/18 doxazosin 2 mg tablet 4 mg PO HS tab 04/24/17 11/28/18 Ipratropium/Albuterol Sulfate 3 ml IH Q6HP PRN 05/25/17 11/28/18 [Duoneb 3mL neb] Ferrous Gluconate [Ferrous 324 mg PO DAILY 06/10/17 11/28/18 Gluconate 324mg Tab] Carvedilol [Carvedilol 6.25mg Tab] 6.25 mg PO BID 08/02/18 11/28/18 Spironolactone [Spironolactone 25 mg PO DAILY 08/03/18 11/28/18 25mg Tablet] levothyroxine 100 mcg tablet 100 mcg PO DAILY tab 10/11/18 11/28/18 Previous Rx's Medication Instructions Recorded pantoprazole 40 mg tablet,delayed 40 mg PO DAILY #90 tab 07/27/17 release tolterodine 2 mg tablet 2 mg PO BID #60 tab 08/14/18 clopidogrel 75 mg tablet 75 mg PO DAILY #30 tab 11/13/18 lisinopril 10 mg tablet 10 mg PO DAILY #30 tab 11/13/18 Allergies Allergy/AdvReac Type Severity Reaction Status Date / Time Penicillins Allergy Unknown Verified 10/11/18 11:10 morphine AdvReac Severe SHORTNESS Verified 10/11/18 11:10 OF BREATH [facility] History - Hepatitis A Screen Drug use history?: No High risk sexual behaviors?: No History of sexually transmitted infection?: No Currently employed?: No Childcare worker?: No Do you have indoor plumbing?: Yes Do you have electricity?: Yes Attestation statement:: This patient has been screened for Hepatitis A risk factors. I have reviewed the patient's past medical history: Yes Medical History: Reports:: Cancer (lung), Chronic Obstructive Pulmonary Disease (COPD), Coronary Artery Disease, Diabetes Mellitus Type 2, Hypertension, Internal Pacemaker Denies:: Diabetes Mellitus Type 1 Other Medical History: Reports: Thyroid Disease Other Surgeries: Yes: Cardiac Catheterization, Cholecystectomy, Colonoscopy, Hysterectomy-Total, Hysterectomy-Partial, Pacemaker, Thyroidectomy, Other (MASS REMOVED FROM THYROID) Amputation: No Fractures: No - Social History Smoking Status: Former smoker Tobacco Type: cigarettes # Packs/Day (cigarettes): 2 #Yrs smoked (if former smoker): 30 Alcohol Intake: never Alcohol Intake Frequency:: other Substance Use Type: denies use Occupational Status: retired Housing: house Household Members: spouse Family Hx:: Cancer ROS Obtained: Yes All systems reviewed & no additional complaints - Constitutional Constitutional: Denies fever(s) - Eyes Eyes: Denies change in vision - ENT Ears, Nose, Mouth, and Throat: Denies sore throat - Cardiovascular Cardiovascular: Reports chest pain, Denies dyspnea - Respiratory Respiratory: No chest congestion, No cough, No coughing up blood - Gastrointestinal Gastrointestingal: Denies: abdominal pain - Genitourinary Female Genitourinary: Denies hematuria - Musculoskeletal Musculoskeletal: Denies joint pain - Integumentary/Breasts Skin/Breast: Denies rash - Neurologic Neurologic: Denies seizure-like activity Physical Exam - General General appearance: alert - Head Head exam: normocephalic - Eye Eye exam: Present: PERRL, EOMI - ENT ENT exam: Present: mucous membranes dry - Neck Neck exam: Present: trachea midline - Respiratory Respiratory exam: Absent: respiratory distress - Cardiovascular Cardiovascular exam: Present: regular rate, systolic murmur, +S4 - Abdominal Exam Abdominal exam: Present: soft. Absent: tenderness - Extremities Exam Extremities exam: Present: pedal edema. Absent: calf tenderness - Neurological Exam Neurological exam: Present: alert, oriented X3, CN II-XII intact - Psychiatric Psychiatric exam: Present: normal affect - Skin Skin exam: Absent: rash
[2018-11-28 22:07] LABS: C-Reactive Protein 0.3 mg/dL (0.0-0.9)
[2018-11-29 05:00] LABS: Calcium 8.4 mg/dL (8.5-10.1)
[2018-11-29 05:11] LABS: Basophils % 0.2 % (0.1-2.0); Eosinophils % 0.5 % (0.1-12.0); Hematocrit 30.9 % (37.0-47.0); Hemoglobin 9.7 g/dL (12.2-16.2); Lymphocytes # 0.8 K/mm3 (0.7-4.5); Lymphocytes % 16.6 % (10-50); Mean Corpuscular HGB Conc 31.5 g/dL (31.8-35.4); Mean Corpuscular Volume 99.5 fl (81-99); Mean Platelet Volume 6.7 fl (7.4-10.4); Monocytes # 0.1 K/mm3 (0.1-1.0); Monocytes % 1.8 % (1.7-9.3); Neutrophils # 3.9 K/mm3 (1.8-7.8); Neutrophils % 80.9 % (37.0-80.0); Platelet Count 158 K/mm3 (142-424); Red Blood Count 3.11 M/mm3 (4.20-5.40); Red Cell Distribution Width 13.6 % (11.5-17.5); White Blood Count 4.8 K/mm3 (4.8-10.8)
--- NOTE | 2018-11-29 07:19 | History & Physical Report ---
*Admission Date: 11/28/18 *Chief complaint: Chest tightness *History of present illness: 83-year-old female with history of coronary artery disease, ischemic cardiomyopathy with diastolic dysfunction, lung cancer, COPD presented to the emergency department yesterday with approximately 2 days of intermittent e pisodes of chest tightness that would last for approximately a minute. Episodes would occur at rest or with activity. Chest tightness was nonradiating. She denies associated shortness of breath but some diaphoresis. She denies nausea. Patient has underlying COPD but feels like her dyspnea is at baseline. She denies fevers or chills. She has had a cough that is dry and nonproductive. [facility] History I have reviewed the patient's past medical history: Yes Medical History: Reports:: Cancer (lung), Chronic Obstructive Pulmonary Disease (COPD), Coronary Artery Disease, Hyperlipidemia, Hypertension, Internal Pacemaker Denies:: Diabetes Mellitus Type 1, Diabetes Mellitus Type 2 *Have you ever received a pneumonia vaccine?: Yes *Have you received a flu vaccine this season?: No Other Medical History: Reports: Thyroid Disease Other Surgeries: Yes: Cardiac Catheterization, Cholecystectomy, Colonoscopy, Hysterectomy-Total, Hysterectomy-Partial, Pacemaker, Thyroidectomy, Other (MASS REMOVED FROM THYROID) Amputation: No Fractures: No - *Social History Educational Level: Completed High School Smoking Status: Former smoker Tobacco Type: cigarettes # Packs/Day (cigarettes): 2 #Yrs smoked (if former smoker): 30 Alcohol Intake: never Alcohol Intake Frequency:: other Substance Use Type: denies use *Occupational Status:: retired Housing: house Household Members: spouse *Travel in the last 8 weeks: None Family Hx:: Heart Attack Review of Systems - Review of Systems Review of systems:: pertinent systems reviewed and negative unless documented below - *Neurologic Denies seizure-like activity Meds Home Medications Medication Instructions Recorded Confirmed Type Aspirin [Aspir 81] 81 mg PO DAILY 03/29/17 11/28/18 History Metformin HCl [Glucophage 500mg 500 mg PO BID 03/29/17 11/28/18 History Tablet] [place]-3 Fatty Acids/Fish Oil [Fish 1 each PO DAILY 03/29/17 11/28/18 History Oil 1,000 mg Capsule] PARoxetine HCl [Paxil] 20 mg PO DAILY 03/29/17 11/28/18 History Simvastatin 40 mg PO DAILY 03/29/17 11/28/18 History chlordiazepoxide 25 mg capsule 25 mg PO BID cap 04/24/17 11/28/18 History doxazosin 2 mg tablet 4 mg PO HS tab 04/24/17 11/28/18 History Ipratropium/Albuterol Sulfate 3 ml IH Q6HP PRN 05/25/17 11/28/18 History [Duoneb 3mL neb] Ferrous Gluconate [Ferrous 324 mg PO DAILY 06/10/17 11/28/18 History Gluconate 324mg Tab] pantoprazole 40 mg tablet,delayed 40 mg PO DAILY #90 tab 07/27/17 11/28/18 Rx release Carvedilol [Carvedilol 6.25mg Tab] 6.25 mg PO BID 08/02/18 11/28/18 History Spironolactone [Spironolactone 25 mg PO DAILY 08/03/18 11/28/18 History 25mg Tablet] tolterodine 2 mg tablet 2 mg PO BID #60 tab 08/14/18 11/28/18 Rx levothyroxine 100 mcg tablet 100 mcg PO DAILY tab 10/11/18 11/28/18 History clopidogrel 75 mg tablet 75 mg PO DAILY #30 tab 11/13/18 11/28/18 Rx lisinopril 10 mg tablet 10 mg PO DAILY #30 tab 11/13/18 11/28/18 Rx Allergies Allergy/AdvReac Type Severity Reaction Status Date / Time Penicillins Allergy Unknown Verified 10/11/18 11:10 morphine AdvReac Severe SHORTNESS Verified 10/11/18 11:10 OF BREATH Exam Vital signs and Labs for Last 24 Hours: Temp Pulse Resp BP Pulse Ox 98.1 F 65 17 159/90 H 98 11/29/18 03:36 11/29/18 06:08 11/29/18 03:36 11/29/18 03:36 11/29/18 06:08 Laboratory Results - last 24 hr 11/28/18 20:20: WBC 6.5, RBC 3.33 L, Hgb 10.3 L, Hct 32.9 L, MCV 98.7, MCH 31.0, MCHC 31.4 L, RDW 13.8, Plt Count 191, MPV 6.8 L, Neut % (Auto) 61.4, Lymph % (Auto) 26.7, [place] % (Auto) 5.7, Eos % (Auto) 5.6, Baso % (Auto) 0.6, Neut # (Auto) 4.0, Lymph # (Auto) 1.7, [place] # (Auto) 0.4, Eos # (Auto) 0.4, Baso # (Auto) 0.0, ESR 40 H 11/28/18 20:20: Lactate 1.5 11/28/18 20:30: Troponin I < 0.02, C-Reactive Protein 0.3 11/28/18 20:30: Sodium 140, Potassium 4.6, Chloride 103, Carbon Dioxide 27, Anion Gap 14.6, BUN 23 H, Creatinine 0.92, Estimated Creat Clear 49, Estimated GFR 59, Est GFR ( Amer) 71, Glucose 110 H, Calcium 8.8 11/28/18 20:30: B-Natriuretic Peptide 93 11/29/18 01:25: Troponin I < 0.02 11/29/18 04:23: Troponin I < 0.02 11/29/18 04:23: WBC 4.8 D, RBC 3.11 L, Hgb 9.7 L, Hct 30.9 L, MCV 99.5 H, MCH 31.3 H, MCHC 31.5 L, RDW 13.6, Plt Count 158, MPV 6.7 L, Neut % (Auto) 80.9 H, Lymph % (Auto) 16.6, [place] % (Auto) 1.8, Eos % (Auto) 0.5, Baso % (Auto) 0.2, Neut # (Auto) 3.9, Lymph # (Auto) 0.8, [place] # (Auto) 0.1, Eos # (Auto) 0.0, Baso # (Auto) 0.0 11/29/18 04:23: Sodium 141, Potassium 5.0, Chloride 105, Carbon Dioxide 26, Anion Gap 15.0, BUN 20 H, Creatinine 0.81, Estimated Creat Clear 48, Estimated GFR 68, Est GFR ( Amer) 82, Glucose 155 H D, Calcium 8.4 L, Magnesium 1.3 L 11/29/18 05:16: POC Glucose 159 H I & O for Last 24 hours: Intake & Output 11/26/18 11/27/18 11/28/1819 11:59 11:59 11:59 11:59 Intake Total 329 / 329 Balance 329 / 329 Weight 157 lb 8 oz Narrative: Elderly female in no acute distress. She is wearing oxygen via nasal cannula. Oropharynx is moist. Neck has no carotid bruits. Heart has an irregular rhythm, likely secondary to her pacemaker. Lungs have a faint expiratory wheeze heard anteriorly and are otherwise clear. Abdomen is soft and nontender. Extremities are warm to the touch. Assessment and Plan (1) Chest pain at rest Current visit: Yes Status: Acute Category: Medical Code(s): R07.9 - Chest pain, unspecified (2) Pacemaker Current visit: Yes Status: Acute Category: Medical Code(s): Z95.0 - Presence of cardiac pacemaker (3) COPD (chronic obstructive pulmonary disease) Current visit: Yes Status: Chronic Qualifiers: COPD type: unspecified COPD Qualified Code(s): J44.9 - Chronic obstructive pulmonary disease, unspecified Category: Medical Code(s): J44.9 - Chronic obstructive pulmonary disease, unspecified (4) CHF (congestive heart failure), NYHA class III Current visit: No Status: Acute Qualifiers: Congestive heart failure type: systolic Congestive heart failure chronicity: chronic Qualified Code(s): I50.22 - Chronic systolic (congestive) heart failure Category: Medical Code(s): I50.9 - Heart failure, unspecified (5) Diastolic dysfunction Current visit: Yes Status: Chronic Category: Medical Code(s): I51.89 - Other ill-defined heart diseases - Assessment and plan all Dx Assessment and Plan for all problems:: 1. Patient is ruled out for SC. Cardiology consult today. Continue home medicines
--- NOTE | 2018-11-29 07:21 | Pharmacy Consult Notes ---
[facility] Pharmacy VTE Monitoring - Patient Demographics Admission date: 11/28/18 Report Date: 11/29/18 Time: 07:21 Allergies/Adverse Reactions: Patient Allergies Penicillins Allergy (Unknown, Verified 10/11/18 11:10) morphine Adverse Reaction (Severe, Verified 10/11/18 11:10) SHORTNESS OF BREATH Height: 1.55 m Weight: 71.441 kg Patient Problems: Current Active Problems Chest pain at rest (Acute) Pacemaker (Acute) COPD (chronic obstructive pulmonary disease) (Chronic) - VTE Risk Labs: VTE Related Lab Results Hgb 9.7 g/dL (12.2-16.2) L 11/29/18 04:23 Hct 30.9 % (37.0-47.0) L 11/29/18 04:23 Plt Count 158 K/mm3 (142-424) 11/29/18 04:23 BUN 20 mg/dL (7-18) H 11/29/18 04:23 Creatinine 0.81 mg/dL (0.55-1.02) 11/29/18 04:23 Estimated Creat Clear 48 mL/min (50-200) 11/29/18 04:23 Was VTE Risk Assessment Performed: Yes VTE Score: 4 VTE Risk Level: Low Risk Clinical Trial Participant: No - Prophylaxis VTE Prophylaxis Ordered?: Yes Types of VTE Prophylaxis: TEDS Knee High
--- NOTE | 2018-11-29 08:07 | Consult Report ---
History of Present Illness Consult date: 11/29/18 Requesting physician: Joe Collins Consult reason: chest pain Chief complaint: chest pain Additional Medical History:: 1. Coronary artery disease, followed by Dr. Lozano A. History of coronary artery stenting approximately 4 or 5 years ago, Dr. Derek Tello [facility], 02/2015, mid LAD stenosis C. NIMCO to LAD and Diagonal arteries, 04/2015, [facility], Dr. Paige 2. Hypertension treated for more than 10 years. 3. Hyperlipidemia treated for more than 10 years. 4. Remote tobacco use discontinued 7 years ago. She smoked for more than 40 years. A. 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 has been off therapy since 08/2017. keytruda was stopped due to weight loss- unclear if cause of weight loss. pt reports good appetite. scans are stable". 05/2018, per Dr. Eden 5. History of cholecystectomy and appendectomy 6. Chronic obstructive pulmonary disease with home oxygen use. Followed by Dr. Haddad. 7. History of thyroidectomy, chronic thyroid supplementation. 8. CKD, stage 4 with Cr 2.2 and GFR 22, 03/19/2015. 9. Complete heart block, 02/2015 A. PPM, placed, 02/2015, then removed due to wound dehiscence, 03/2015, with several days of IV antibiotics (cultures showed only staph epidermidis) B. Right sided PPM placed, 03/2015 10. Cardiomyopathy, LVEF 40% by echo, 2015, 05/2018 A. Recommendation for upgrade to BiV pacemaker refused by patient 11. Carotid artery stenosis A. CNI, 03/2018, 20-49% ICA stenosis bilaterally History of present illness: 83-year-old female with history of coronary artery disease, ischemic cardiomyopathy with diastolic dysfunction, lung cancer, COPD presented to the emergency department yesterday with approximately 2 days of intermittent episodes of chest tightness that would last for approximately a minute. Episodes would occur at rest or with activity. Chest tightness was nonradiating. She denies associated shortness of breath but some diaphoresis. She denies nausea. Patient has underlying COPD but feels like her dyspnea is at baseline. She denies fevers or chills. She has had a cough that is dry and nonproductive The above per Dr. Collins Pt relates chest tightness that started yesterday and did not stop. This prompted her to come to ER for evaluation. Symptoms have persisted overnight with serial negative troponins X 3. EKG shows AV pacing with capture. Last pacemaker dowload was in May this year with normal function noted. No evidence of CHF by CXR or BNP and clinically SOA is at baseline. [facility] History Medical History: Reports:: Cancer (lung), Chronic Obstructive Pulmonary Disease (COPD), Coronary Artery Disease, Hyperlipidemia, Hypertension, Internal Pacemaker Denies:: Diabetes Mellitus Type 1, Diabetes Mellitus Type 2 *Have you ever received a pneumonia vaccine?: Yes *Have you received a flu vaccine this season?: No Other Medical History: Reports: Thyroid Disease Other Surgeries: Yes: Cardiac Catheterization, Cholecystectomy, Colonoscopy, Hysterectomy-Total, Hysterectomy-Partial, Pacemaker, Thyroidectomy, Other (MASS REMOVED FROM THYROID) Amputation: No Fractures: No - *Social History Educational Level: Completed High School Smoking Status: Former smoker Tobacco Type: cigarettes # Packs/Day (cigarettes): 2 #Yrs smoked (if former smoker): 30 Alcohol Intake: never Alcohol Intake Frequency:: other Substance Use Type: denies use *Occupational Status:: retired Housing: house Household Members: spouse *Travel in the last 8 weeks: None Family Hx:: Heart Attack Meds Home Medications Medication Instructions Recorded Confirmed Type Aspirin [Aspir 81] 81 mg PO DAILY 03/29/17 11/28/18 History Metformin HCl [Glucophage 500mg 500 mg PO BID 03/29/17 11/28/18 History Tablet] [place]-3 Fatty Acids/Fish Oil [Fish 1 each PO DAILY 03/29/17 11/28/18 History Oil 1,000 mg Capsule] PARoxetine HCl [Paxil] 20 mg PO DAILY 03/29/17 11/28/18 History Simvastatin 40 mg PO DAILY 03/29/17 11/28/18 History chlordiazepoxide 25 mg capsule 25 mg PO BID cap 04/24/17 11/28/18 History doxazosin 2 mg tablet 4 mg PO HS tab 04/24/17 11/28/18 History Ipratropium/Albuterol Sulfate 3 ml IH Q6HP PRN 05/25/17 11/28/18 History [Duoneb 3mL neb] Ferrous Gluconate [Ferrous 324 mg PO DAILY 06/10/17 11/28/18 History Gluconate 324mg Tab] pantoprazole 40 mg tablet,delayed 40 mg PO DAILY #90 tab 07/27/17 11/28/18 Rx release Carvedilol [Carvedilol 6.25mg Tab] 6.25 mg PO BID 08/02/18 11/28/18 History Spironolactone [Spironolactone 25 mg PO DAILY 08/03/18 11/28/18 History 25mg Tablet] tolterodine 2 mg tablet 2 mg PO BID #60 tab 08/14/18 11/28/18 Rx levothyroxine 100 mcg tablet 100 mcg PO DAILY tab 10/11/18 11/28/18 History clopidogrel 75 mg tablet 75 mg PO DAILY #30 tab 11/13/18 11/28/18 Rx lisinopril 10 mg tablet 10 mg PO DAILY #30 tab 11/13/18 11/28/18 Rx Allergies Allergy/AdvReac Type Severity Reaction Status Date / Time Penicillins Allergy Unknown Verified 10/11/18 11:10 morphine AdvReac Severe SHORTNESS Verified 10/11/18 11:10 OF BREATH Review of Systems - *Cardiovascular Reports chest pain, Reports shortness of breath, Denies fast heart rate - *Respiratory Reports cough, Reports shortness of breath, Reports shortness of breath with activity - *Gastrointestinal Denies abdominal pain, Denies nausea, Denies vomiting - *Genitourinary Denies blood in urine - *Musculoskeletal Denies joint pain, Denies back pain - *Neurologic Denies seizure-like activity Exam Vital signs and Labs for Last 24 Hours: Temp Pulse Resp BP Pulse Ox 98.1 F 65 17 159/90 H 98 11/29/18 03:36 11/29/18 06:08 11/29/18 03:36 11/29/18 03:36 11/29/18 06:08 Laboratory Results - last 24 hr 11/28/18 20:20: WBC 6.5, RBC 3.33 L, Hgb 10.3 L, Hct 32.9 L, MCV 98.7, MCH 31.0, MCHC 31.4 L, RDW 13.8, Plt Count 191, MPV 6.8 L, Neut % (Auto) 61.4, Lymph % (Auto) 26.7, [place] % (Auto) 5.7, Eos % (Auto) 5.6, Baso % (Auto) 0.6, Neut # (Auto) 4.0, Lymph # (Auto) 1.7, [place] # (Auto) 0.4, Eos # (Auto) 0.4, Baso # (Auto) 0.0, ESR 40 H 11/28/18 20:20: Lactate 1.5 11/28/18 20:30: Troponin I < 0.02, C-Reactive Protein 0.3 11/28/18 20:30: Sodium 140, Potassium 4.6, Chloride 103, Carbon Dioxide 27, Anion Gap 14.6, BUN 23 H, Creatinine 0.92, Estimated Creat Clear 49, Estimated GFR 59, Est GFR ( Amer) 71, Glucose 110 H, Calcium 8.8 11/28/18 20:30: B-Natriuretic Peptide 93 11/29/18 01:25: Troponin I < 0.02 11/29/18 04:23: Troponin I < 0.02 11/29/18 04:23: WBC 4.8 D, RBC 3.11 L, Hgb 9.7 L, Hct 30.9 L, MCV 99.5 H, MCH 31.3 H, MCHC 31.5 L, RDW 13.6, Plt Count 158, MPV 6.7 L, Neut % (Auto) 80.9 H, Lymph % (Auto) 16.6, [place] % (Auto) 1.8, Eos % (Auto) 0.5, Baso % (Auto) 0.2, Neut # (Auto) 3.9, Lymph # (Auto) 0.8, [place] # (Auto) 0.1, Eos # (Auto) 0.0, Baso # (Auto) 0.0 11/29/18 04:23: Sodium 141, Potassium 5.0, Chloride 105, Carbon Dioxide 26, Anion Gap 15.0, BUN 20 H, Creatinine 0.81, Estimated Creat Clear 48, Estimated GFR 68, Est GFR ( Amer) 82, Glucose 155 H D, Calcium 8.4 L, Magnesium 1.3 L 11/29/18 05:16: POC Glucose 159 H I & O for Last 24 hours: Intake & Output 11/26/18 11/27/18 11/28/18 11/29/18 11:59 11:59 11:59 11:59 Intake Total 329 / 329 Balance 329 / 329 Weight 157 lb 8 oz - *Routine HEENT Exam Head: Present: normocephalic Eye: Present: EOMI, PERRL ENT: Present: mucous membranes moist - *Routine Neck Exam Present: supple. Absent: JVD, carotid bruit - *Routine Respiratory Exam Present: decreased breath sounds, rhonchi, diminished air movement. Absent: accessory muscle use, rales, wheezes - *Routine Cardiovascular Exam Present: RRR. Absent: murmur, gallop, rubs - *Routine Abdominal Exam Present: soft. Absent: tenderness, distended, guarding - *Routine Extremities Exam Absent: edema, calf tenderness - *Routine Neurological Exam Present: alert, oriented X3, moving all extremities Assessment and Plan (1) Chest pain at rest Current visit: Yes Status: Acute Category: Medical Code(s): R07.9 - Chest pain, unspecified (2) Pacemaker Current visit: Yes Status: Acute Category: Medical Code(s): Z95.0 - Presence of cardiac pacemaker (3) COPD (chronic obstructive pulmonary disease) Current visit: Yes Status: Chronic Qualifiers: COPD type: unspecified COPD Qualified Code(s): J44.9 - Chronic obstructive pulmonary disease, unspecified Category: Medical Code(s): J44.9 - Chronic obstructive pulmonary disease, unspecified (4) CHF (congestive heart failure), NYHA class III Current visit: No Status: Acute Qualifiers: Congestive heart failure type: systolic Congestive heart failure chronicity: chronic Qualified Code(s): I50.22 - Chronic systolic (congestive) heart failure Category: Medical Code(s): I50.9 - Heart failure, unspecified (5) Diastolic dysfunction Current visit: Yes Status: Chronic Category: Medical Code(s): I51.89 - Other ill-defined heart diseases - Assessment and plan all Dx Assessment and Plan for all problems:: 1. Pacemaker interrogated. No significant arrhythmias with AT/AF burden <1%. A. paced 62% and V paced 50% (down from 79% earlier this year) 2. Due to history of coronary artery stenting in early 2016 with no follow-up testing since then would recommend proceeding with Lexiscan Myoview to evaluate for recurrent coronary artery disease at this time in this group home diabetic. 3. Echo results pending 4. Further recommendations to follow
--- NOTE | 2018-11-29 13:11 | Electrocardiograph Report ---
APPROVED REPORT Exam: Resting ECG HR:74 bpm ECG Measurements Heart Rate 74 AXES QRSd 192 QRS -70 QT 476 T103 QTc 528 <Conclusion> AV sequential or dual chamber electronic pacemaker Electronically signed by : Alvarado Diaz, 11/29/2018 13:10:38
--- NOTE | 2018-11-29 16:44 | Cardiology Report ---
APPROVED REPORT Exam: Pharmacologic Technologist: epifanio hanson, Ht: 5 ft 1 in Wt: 154 lbs BSA: 1.69 m2 HR: 82 bpm BP: 135/60 mmHg Indications: Fatigue Medical History Medical History: CAD s/p CABG, Diabetes, HTN, Hyperlipidemia Medications: Lisinopril,,,,, Levothyroxine,,,,, Simvastatin,,,,, Asa,,,,, Metformin,,,,, Pantoprazole,,,,, Carvedilol,,,,, Albuterol,,,,, CloPIdogrel,,,,, PaXIL,,,,, CHlordiazapoxide,,,,, Tolterodine,,,,, Allergies: MORPHINE,PCN Cardiac Risk Factors: HTN, Hyperlipidemia, DM, FHX of CAD Previous Cardiac Procedures: CABG Stress Test Details Test: LEXISCAN HR Resting HR: 109 bpmMax Heart Rate (APMHR): 139 bpm Max HR Achieved: 121 bpmTarget HR (85% APMHR): 118 bpm % of APMHR: 87 Recovery HR: 105 bpm BP Resting BP: 135/60 mmHg Max BP: 177/60 mmHg Recovery BP: 174.0/60.0 mmHg ECG Resting ECG: NSR FREQUENT PVC'S,LBBB,?AV DISSOCIATION,DUAL-CHAMBER PACEMAKER Clinical Exercise duration: 04:12 min Highest Stage Achieved: Exercise capacity: 1.0 METs Stress ECG Conclusion DURING LEXISCAN INJECTION THE PATIENT HAD CHEST HEAVINESS,MILD SOA,STOMACH DISCOMFORT AND MALAISE. FREQUENT V.ECTOPY IN BIGEMINAL PATTERN. OCCASIONAL V.COUPLET. NON-DIAGNOSTIC ST-T CHANGES. NON-DIAGNOSTIC LEXISCAN STRESS. MYOVIEW IMAGES REPORTED SEPARATELY. Test Summary REST15:03..109.135/ 60.. Stage 101:00..93.... Stage 201:00..110.... Stage 301:00..111.... Stage 401:00..105.150/ 60.. Stage 401:12..107.150/ 60.Stop exercise at 04:12 TFCHSPPJ99:00..105.174/ 60.. QIVMFOPU12:00..101.174/ 60.. WDXDMQQC99:00..98.174/ 60.. KWCVRYVK61:00..101.177/ 60.. IWESUQNY45:00..99.173/ 58.. OUEUCXBW06:00..97.173/ 58.. NWSLPTCP46:00..97.173/ 58.. VDPVUJTO21:00..98.171/ 50.. OBIHANPC23:24..98.171/ 50.. Electronically signed by : Eugene Navarrete, 11/29/2018 16:43:44
--- NOTE | 2018-11-29 17:07 | Cardiology Report ---
APPROVED REPORT EXAM: Comprehensive 2D, Doppler, and color-flow Echocardiogram Cnc Machine Programmer: Holli Garcia CRT Ht: 5 ft 1 in Wt: 154lbs BSA: 1.69 BP: 120/42 mmHg Indications: Chest Pain, COPD, Diabetes, Hyperlipidemia, Hypertension/HDD, pacer, home o2, lung ca, pacer 2D Dimensions LVOT 1.90 cm (M/F) 1.5-2.5 M-Mode Dimensions RVDd 3.10 cm (0.9-2.6)LA Diam 5.30 cm (1.9-4.0) LVDd 4.60 cm (3.5-5.7)Ao Diam 3.10 cm (2.0-3.7) LVDs 3.60 cm (3.5-5.7)AV Cusp 2.20 cm (1.5-2.6) IVSd 2.10 cm (0.6-1.1)PWd 0.90 cm (0.6-1.1) EF (Teich) 44.10% FS 21.70% EDV (Teich) 97.30 mLESV (Teich) 54.40 mL LV Diastology E/A Ratio 1.20MED E' 6.34 (< 7 cm/sec) E'/MED E' Ratio17.40 (>14)LAT E' 5.85 (<10 cm/sec) E/LAT E' Ratio 18.80 (>14) Aortic Valve AoV Peak Alessandro. 141.00 (50-130 cm/s)AO Peak GR. 8.00 mmHg Mitral Valve MV E Max Alessandro. 110.00 (40-130 cm/s)MV A Velocity 89.30 (40-130 cm/s) E/A Ratio 1.20 Pulmonary Valve IA End VMAX 88.70 cm/s PA Accel Time 99.00 (>120 msec) Tricuspid Valve TR P. Phwuvbeh793.00 cm/sRAP Estimate 10.00 mmHg RVSP 45.00 mmHg Left Ventricle Left atrium is mildly enlarged, left ventricle is normal size, there is mild concentric left ventricular hypertrophy, visually estimated ejection fraction 50%, there is abnormal septal motion. Diastolic parameters are inconclusive. Right Ventricle Right atrium and right ventricular mildly enlarged with normal contractility. Pacemaker lead seen in the right atrium and right ventricle. Aortic Valve Aortic valve is thickened and calcified, there is no aortic stenosis aortic insufficiency. Mitral Valve Mitral valve is mild mitral annular calcification, there is no mitral stenosis, there is mild mitral regurgitation. Tricuspid Valve Tricuspid valve is grossly normal, there is mild tricuspid regurgitation. Pulmonic Valve Pulmonic valve is poorly visualized. Great Vessels Aortic root is normal size. Pericardium No significant pericardial effusion noted. Conclusion 1. Biatrial enlargement, normal left ventricular size, visually estimated ejection fraction 50% with no regional wall motion abnormality, there is abnormal septal motion, diastolic parameters are inconclusive. 2. Mildly enlarged right ventricle with normal contractility. 3. Mild mitral and tricuspid regurgitation. 4. No significant pericardial effusion noted. Electronically signed by : Eugene Navarrete, 11/29/2018 17:07:02
[2018-11-29 18:33] LABS: Microscopic, Urine URINE MICROSCOPIC (MICROSCOPIC)
[2018-11-29 18:38] LABS: Appearance,Urine CLEAR (Clear); Bilirubin,Urine Negative (Negative); Blood, Urine Negative (Negative); Color,Urine YELLOW (Yellow); Glucose,Urine (UA) Negative (Negative); Ketones,Urine Negative (Negative); Leukocyte Esterase,Urine Negative (Negative); Protein,Urine Negative (Negative); Specific Gravity, Urine <= 1.005 (1.005-1.030); Urobilinogen,Urine 0.2 EU/dl (0.2)
[2018-11-29 18:55] LABS: Bacteria,Urine 2+ /lpf
[2018-11-29 18:56] LABS: Squamous Epithelial Cell,Urine Occasional #/hpf (0-5)
--- NOTE | 2018-11-30 07:08 | Progress Note ---
Internal Medicine - PN: Subj *Date: 11/30/18 *Time: 07:07 Interval history: Patient has no new complaints this morning. She does endorse continued episodes of brief chest heaviness over the last 24 hours. She is scheduled for left heart catheterization today after abnormal Myoview stress test Exam Vital signs and Labs for Last 24 Hours: Temp Pulse Resp BP Pulse Ox 98.4 F 45 L 20 110/55 L 99 11/30/18 04:00 11/30/18 06:53 11/30/18 04:00 11/30/18 04:00 11/30/18 06:53 Laboratory Results - last 24 hr 11/29/18 16:46: POC Glucose 145 H 11/29/18 18:00: Urine Color Yellow, Urine Appearance Clear, Urine pH 6.0, Ur Specific [place] <= 1.005, Urine Protein Negative, Urine Glucose (UA) Negative, Urine Ketones Negative, Urine Blood Negative, Urine Nitrate Positive, Urine Bilirubin Negative, Urine Urobilinogen 0.2, Ur Leukocyte Esterase Negative, Urine WBC 3-5, Ur Squamous Epith Cells Occasional, Urine Bacteria 2+ 11/29/18 21:25: POC Glucose 96 I & O for Last 24 hours: Intake & Output 11/27/18 11/28/18 11/29/18 11/30/18 11:59 11:59 11:59 11:59 Intake Total 329 / 329 480 / 480 Output Total 600 / 600 Balance 329 / 329 -120 / -120 Weight 157 lb 8 oz 156 lb 2 oz Narrative: She is awake and alert. Lungs have expiratory wheezes. Heart has a regular rate and rhythm. Assessment and Plan (1) Chest pain at rest Current visit: Yes Status: Acute Category: Medical Code(s): R07.9 - Chest pain, unspecified (2) Pacemaker Current visit: Yes Status: Acute Category: Medical Code(s): Z95.0 - Presence of cardiac pacemaker (3) COPD (chronic obstructive pulmonary disease) Current visit: Yes Status: Chronic Qualifiers: COPD type: unspecified COPD Qualified Code(s): J44.9 - Chronic obstructive pulmonary disease, unspecified Category: Medical Code(s): J44.9 - Chronic obstructive pulmonary disease, unspecified (4) CHF (congestive heart failure), NYHA class III Current visit: No Status: Acute Qualifiers: Congestive heart failure type: systolic Congestive heart failure chronicity: chronic Qualified Code(s): I50.22 - Chronic systolic (congestive) heart failure Category: Medical Code(s): I50.9 - Heart failure, unspecified (5) Diastolic dysfunction Current visit: Yes Status: Chronic Category: Medical Code(s): I51.89 - Other ill-defined heart diseases - Assessment and plan all Dx Assessment and Plan for all problems:: 1. Left heart cath today with further decision making after
[2018-12-01 06:02] LABS: Basophils % 0.3 % (0.1-2.0); Eosinophils # 0.2 K/mm3 (0.0-0.4); Eosinophils % 4.4 % (0.1-12.0); Hematocrit 30.5 % (37.0-47.0); Hemoglobin 10.1 g/dL (12.2-16.2); Lymphocytes # 1.3 K/mm3 (0.7-4.5); Lymphocytes % 24.4 % (10-50); Mean Corpuscular HGB Conc 33.2 g/dL (31.8-35.4); Mean Corpuscular Volume 99.7 fl (81-99); Mean Platelet Volume 6.7 fl (7.4-10.4); Monocytes # 0.3 K/mm3 (0.1-1.0); Monocytes % 5.7 % (1.7-9.3); Neutrophils # 3.5 K/mm3 (1.8-7.8); Neutrophils % 65.2 % (37.0-80.0); Platelet Count 166 K/mm3 (142-424); Red Blood Count 3.06 M/mm3 (4.20-5.40); Red Cell Distribution Width 13.8 % (11.5-17.5); White Blood Count 5.4 K/mm3 (4.8-10.8)
[2018-12-01 06:09] LABS: Anion Gap 11.5 mEq/L (5-15); Calcium 8.8 mg/dL (8.5-10.1)
--- NOTE | 2018-12-01 08:04 | Discharge Summary ---
General - General Admission date:: 11/28/18 Discharge date: 12/01/18 HPI HPI: 83-year-old female with history of coronary artery disease, ischemic cardiomyopathy with diastolic dysfunction, lung cancer, COPD presented to the emergency department yesterday with approximately 2 days of intermittent episodes of chest tightness that would last for approximately a minute. Episodes would occur at rest or with activity. Chest tightness was nonradiating. She denies associated shortness of breath but some diaphoresis. She denies nausea. Patient has underlying COPD but feels like her dyspnea is at baseline. She denies fevers or chills. She has had a cough that is dry and nonproductive. Hospital Course Hospital Course: Patient was admitted and ruled out for NE. The following morning cardiology was consulted and patient underwent Lexiscan stress test with imaging revealing an area of anterior ischemia. Patient underwent subsequent heart catheterization the next day, November 30. Findings are described below: IMPRESSION Severe to critical disease in the distal dominant right coronary artery as described above Successful stenting of the distal dominant right coronary artery followed by additional stenting to the large ostial proximal posterior descending artery Reduced ejection fraction Mild elevated LVEDP PLAN 1. LDL less than 55 2. Dual antiplatelet therapy for at least one year 3. Risk factor modification 4. Cardiac rehabilitation 5. Avoidance of tobacco products Patient was observed overnight for recurrence of chest heaviness of which she had 9. On the morning of December 01 she was discharged home. Patient was found to have urinary tract infection that was present on admission but took 36 hours for the patient to give urine sample. She will be treated appropriately. Patient will follow-up in Dr. Paige's office next week. Patient will follow-up with Dr. Armas as scheduled in early December Objective Vital signs: Temp Pulse Resp BP Pulse Ox 97.6 F 86 21 164/77 H 98 12/01/18 04:00 12/01/18 06:25 12/01/18 06:00 12/01/18 06:00 12/01/18 06:25 Results Labs on day of discharge: Labs from last 24 hours 12/01/18 12/01/18 12/01/18 06:06 05:35 05:35 WBC 5.4 RBC 3.06 L Hgb 10.1 L Hct 30.5 L MCV 99.7 H MCH 33.1 H MCHC 33.2 RDW 13.8 Plt Count 166 MPV 6.7 L Neut % (Auto) 65.2 Lymph % (Auto) 24.4 [place] % (Auto) 5.7 Eos % (Auto) 4.4 Baso % (Auto) 0.3 Neut # (Auto) 3.5 Lymph # (Auto) 1.3 [place] # (Auto) 0.3 Eos # (Auto) 0.2 Baso # (Auto) 0.0 Activated Clotting Time Sodium 142 Potassium 4.5 Chloride 105 Carbon Dioxide 30 Anion Gap 11.5 BUN 17 Creatinine 0.82 Estimated Creat Clear 49 Estimated GFR 67 Est GFR ( Amer) 81 Glucose 112 H POC Glucose 126 H Calcium 8.8 Urine Color Urine Appearance Urine pH Ur Specific [place] Urine Protein Urine Glucose (UA) Urine Ketones Urine Blood Urine Nitrate Urine Bilirubin Urine Urobilinogen Ur Leukocyte Esterase Urine WBC Ur Squamous Epith Cells Urine Bacteria 11/30/18 11/30/18 11/30/18 19:55 16:56 11:56 WBC RBC Hgb Hct MCV MCH MCHC RDW Plt Count MPV Neut % (Auto) Lymph % (Auto) [place] % (Auto) Eos % (Auto) Baso % (Auto) Neut # (Auto) Lymph # (Auto) [place] # (Auto) Eos # (Auto) Baso # (Auto) Activated Clotting Time Sodium Potassium Chloride Carbon Dioxide Anion Gap BUN Creatinine Estimated Creat Clear Estimated GFR Est GFR ( Amer) Glucose POC Glucose 103 90 105 Calcium Urine Color Urine Appearance Urine pH Ur Specific [place] Urine Protein Urine Glucose (UA) Urine Ketones Urine Blood Urine Nitrate Urine Bilirubin Urine Urobilinogen Ur Leukocyte Esterase Urine WBC Ur Squamous Epith Cells Urine Bacteria 11/30/18 11/29/18 10:56 18:00 WBC RBC Hgb Hct MCV MCH MCHC RDW Plt Count MPV Neut % (Auto) Lymph % (Auto) [place] % (Auto) Eos % (Auto) Baso % (Auto) Neut # (Auto) Lymph # (Auto) [place] # (Auto) Eos # (Auto) Baso # (Auto) Activated Clotting Time 273 H* Sodium Potassium Chloride Carbon Dioxide Anion Gap BUN Creatinine Estimated Creat Clear Estimated GFR Est GFR ( Amer) Glucose POC Glucose Calcium Urine Color Yellow Urine Appearance Clear Urine pH 6.0 Ur Specific [place] <= 1.005 Urine Protein Negative Urine Glucose (UA) Negative Urine Ketones Negative Urine Blood Negative Urine Nitrate Positive Urine Bilirubin Negative Urine Urobilinogen 0.2 Ur Leukocyte Esterase Negative Urine WBC 3-5 Ur Squamous Epith Cells Occasional Urine Bacteria 2+ Preliminary micro results at discharge 11/28/18 20:30 Blood Culture - Preliminary Blood NO GROWTH AFTER 48 HOURS 11/28/18 20:30 Blood Culture - Preliminary Blood NO GROWTH AFTER 48 HOURS DS: Diagnosis - Discharge Diagnosis (1) CAD (coronary artery disease) Status: Chronic (2) Chest pain at rest Status: Acute (3) Pacemaker Status: Acute (4) COPD (chronic obstructive pulmonary disease) Status: Chronic (5) CHF (congestive heart failure), NYHA class III Status: Acute (6) Diastolic dysfunction Status: Chronic (7) Lung cancer Status: Acute (8) UTI (urinary tract infection) Status: Acute Discharge Plan - Patient Discharge Instructions ACTIVITY: Continue current activity DIET: continue same diet Patient Instructions: Chronic Obstructive Pulmonary Disease, Cardiac Catheterization, DI for Chronic Obstructive Pulmonary Disease, DI for Chest Pain, Surgical Site Infection - Follow up Plan Disposition: Home, Self-Snf Medications: Home Medications Medication Instructions Recorded Confirmed Type Aspirin [Aspir 81] 81 mg PO DAILY 03/29/17 11/28/18 History Metformin HCl [Glucophage 500mg 500 mg PO BID 03/29/17 11/28/18 History Tablet] [place]-3 Fatty Acids/Fish Oil [Fish 1 each PO DAILY 03/29/17 11/28/18 History Oil 1,000 mg Capsule] PARoxetine HCl [Paxil] 20 mg PO DAILY 03/29/17 11/28/18 History Simvastatin 40 mg PO DAILY 03/29/17 11/28/18 History chlordiazepoxide 25 mg capsule 25 mg PO BID cap 04/24/17 11/28/18 History doxazosin 2 mg tablet 4 mg PO HS tab 04/24/17 11/28/18 History Ipratropium/Albuterol Sulfate 3 ml IH Q6HP PRN 05/25/17 11/28/18 History [Duoneb 3mL neb] Ferrous Gluconate [Ferrous 324 mg PO DAILY 06/10/17 11/28/18 History Gluconate 324mg Tab] pantoprazole 40 mg tablet,delayed 40 mg PO DAILY #90 tab 07/27/17 11/28/18 Rx release Carvedilol [Carvedilol 6.25mg Tab] 6.25 mg PO BID 08/02/18 11/28/18 History Spironolactone [Spironolactone 25 mg PO DAILY 08/03/18 11/28/18 History 25mg Tablet] tolterodine 2 mg tablet 2 mg PO BID #60 tab 08/14/18 11/28/18 Rx levothyroxine 100 mcg tablet 100 mcg PO DAILY tab 10/11/18 11/28/18 History clopidogrel 75 mg tablet 75 mg PO DAILY #30 tab 11/13/18 11/28/18 Rx lisinopril 10 mg tablet 10 mg PO DAILY #30 tab 11/13/18 11/28/18 Rx Ciprofloxacin HCl [Cipro 250mg 250 mg PO BID #10 tab 12/01/18 Rx Tab] Prescriptions/Medication Reconciliation: New Ciprofloxacin HCl [Cipro 250mg Tab] 250 mg PO BID #10 tab Continued doxazosin 2 mg tablet 4 mg PO HS tab pantoprazole 40 mg tablet,delayed release 40 mg PO DAILY #90 tab lisinopril 10 mg tablet 10 mg PO DAILY #30 tab chlordiazepoxide 25 mg capsule 25 mg PO BID cap tolterodine 2 mg tablet 2 mg PO BID #60 tab levothyroxine 100 mcg tablet 100 mcg PO DAILY tab clopidogrel 75 mg tablet 75 mg PO DAILY #30 tab Metformin HCl [Glucophage 500mg Tablet] 500 mg PO BID Simvastatin 40 mg PO DAILY PARoxetine HCl [Paxil] 20 mg PO DAILY [place]-3 Fatty Acids/Fish Oil [Fish Oil 1,000 mg Capsule] 1 each PO DAILY Aspirin [Aspir 81] 81 mg PO DAILY Carvedilol [Carvedilol 6.25mg Tab] 6.25 mg PO BID Spironolactone [Spironolactone 25mg Tablet] 25 mg PO DAILY Ipratropium/Albuterol Sulfate [Duoneb 3mL neb] 3 ml IH Q6HP PRN PRN Reason: Shortness Of Breath Ferrous Gluconate [Ferrous Gluconate 324mg Tab] 324 mg PO DAILY - Problem Reconciliation Problems Reviewed?: Yes
== END 2018-12-01 09:50 | disposition home or self-care (01) ==
LOC: ER 19:57 → 2ND 19:57
PROVIDERS: ADMIT Emergency Medicine; ATTEND Family Medicine
CPT/HCPCS: 36415; 71010; 71045; 78452; 80048; 81001; 82962; 83605; 83735; 83880; 84484; 85025; 85347; 85651; 86140; 87040; 87086; 87088; 87186; 92928; 93005; 93017; 93306; 93458; 94640; 94761; 96365; 96375; 99152; 99153; 99284; A9502; C1725; C1769; C1876; C9600; G0378; J1644; J2785; Q9967

== ENCOUNTER 2018-12-05 12:15 | Observation (INO) ==
--- NOTE | 2018-12-05 12:19 | Emergency Department Note ---
ED Disposition Clinical Impression: Pneumonia, Elevated troponin, CAD (coronary artery disease), COPD (chronic obstructive pulmonary disease) Disposition: Still a Patient Condition on Discharge: Fair Referrals: Provider,Referral, [Primary Care Provider] - Time of Disposition: 13:51 - Critical Care Critical Care Time: No Attestation: On , the high probability of a clinically significant, sudden or life threatening deterioration of the following system(s) required my full and direct attention, intervention and personal management. The time I documented below is in addition to time spent performing reported procedures but includes the following listed in this critical care notation. Medical Decision Making - Medical Records Medical records reviewed: Yes: I reviewed the patient's medical records. - Johnny Inquiry Pt receiving controlled substance: No Johnny was queried for this patient: No Vital Signs: 12/05/18 12:05 Pulse Rate [Left Radial] 66 Respiratory Rate 18 Blood Pressure [Right Arm] 161/60 H Blood Pressure Mean [Right Arm] 93 Blood Pressure Source [Right Arm] Automatic Cuff Blood Pressure Position [Right Arm] Sitting 02 Sat by Pulse Oximetry 96 Oxygen Delivery Method Nasal Cannula Oxygen Flow Rate (LPM) 2 - Lab Data Lab results reviewed: Yes: I reviewed the patient's lab results. Lab Results 12/05/18 12:33: WBC 6.7, RBC 2.85 L, Hgb 8.9 L, Hct 28.6 L, MCV 100.4 H, MCH 31.1, MCHC 31.0 L, RDW 13.6, Plt Count 212, MPV 7.0 L, Neut % (Auto) 72.4, Lymph % (Auto) 19.2, [place] % (Auto) 5.9, Eos % (Auto) 2.1, Baso % (Auto) 0.3, Neut # (Auto) 4.8, Lymph # (Auto) 1.3, [place] # (Auto) 0.4, Eos # (Auto) 0.1, Baso # (Auto) 0.0 12/05/18 12:33: Sodium 137, Potassium 4.9, Chloride 102, Carbon Dioxide 25, Anion Gap 14.9, BUN 17, Creatinine 0.97, Estimated Creat Clear 50, Estimated GFR 55 L, Est GFR ( Amer) 67, Glucose 88, Calcium 8.8, Troponin I 0.25 H 12/05/18 12:33: Lactate 2.5 H 12/05/18 13:58: Troponin I 0.27 H Result diagrams: 12/05/18 12:33 12/05/18 12:33 Orders (Tests/Meds): ED MEDICATIONS Generic Name Dose Route Start Last Admin Trade Name Lesli PRN Reason Stop Dose Admin Levofloxacin/Dextrose 750 mg in 150 mls @ 100 mls/hr 12/05/18 13:45 12/05/18 13:48 Levofloxacin 750mg/150ml Premix IV 12/19/18 13:44 100 mls/hr Q24H ANNE-MARIE Administration Protocol ORDERS Category Date Time Status Blood Culture Stat Micro 12/05/18 12:33 Received ECG Request by /[facility] Stat Y 12/05/18 12:14 Ordered - Physician Consults Physician Consulted: dejon Time: 13:51 Reason -: Admission, Pt condition General Adult HPI - General Chief complaint: Shortness of Breath/Dyspnea Stated complaint: sob Time Seen by Provider: 12/05/18 12:16 Mode of Arrival: EMS Source of Information: Patient, EMS Limitations: No Limitations Description of Symptoms (Recalled from ER Triage Doc. by RN): States she had stents placed on and now she is complaining of shortness of breathe and pain around the bottom of her rib cage - History of Present Illness HPI narrative: dyspnea and cough, unable to expectorate sputum. Saw her pcp yesterday, got a steroid shot. copd history, quit smoking in . [facility] last week, two stents - Related Data Home Medications Medication Instructions Recorded Confirmed Aspirin [Aspir 81] 81 mg PO DAILY 03/29/17 11/28/18 Metformin HCl [Glucophage 500mg 500 mg PO BID 03/29/17 11/28/18 Tablet] [place]-3 Fatty Acids/Fish Oil [Fish 1 each PO DAILY 03/29/17 11/28/18 Oil 1,000 mg Capsule] PARoxetine HCl [Paxil] 20 mg PO DAILY 03/29/17 11/28/18 Simvastatin 40 mg PO DAILY 03/29/17 11/28/18 chlordiazepoxide 25 mg capsule 25 mg PO BID cap 04/24/17 11/28/18 doxazosin 2 mg tablet 4 mg PO HS tab 04/24/17 11/28/18 Ipratropium/Albuterol Sulfate 3 ml IH Q6HP PRN 05/25/17 11/28/18 [Duoneb 3mL neb] Ferrous Gluconate [Ferrous 324 mg PO DAILY 06/10/17 11/28/18 Gluconate 324mg Tab] Carvedilol [Carvedilol 6.25mg Tab] 6.25 mg PO BID 08/02/18 11/28/18 Spironolactone [Spironolactone 25 mg PO DAILY 08/03/18 11/28/18 25mg Tablet] levothyroxine 100 mcg tablet 100 mcg PO DAILY tab 10/11/18 11/28/18 Previous Rx's Medication Instructions Recorded pantoprazole 40 mg tablet,delayed 40 mg PO DAILY #90 tab 07/27/17 release tolterodine 2 mg tablet 2 mg PO BID #60 tab 08/14/18 clopidogrel 75 mg tablet 75 mg PO DAILY #30 tab 11/13/18 lisinopril 10 mg tablet 10 mg PO DAILY #30 tab 11/13/18 Ciprofloxacin HCl [Cipro 250mg 250 mg PO BID #10 tab 12/01/18 Tab] Allergies Allergy/AdvReac Type Severity Reaction Status Date / Time Penicillins Allergy Unknown Verified 10/11/18 11:10 morphine AdvReac Severe SHORTNESS Verified 10/11/18 11:10 OF BREATH [facility] History - Hepatitis A Screen Drug use history?: No High risk sexual behaviors?: No History of sexually transmitted infection?: No Currently employed?: No Childcare worker?: No Do you have indoor plumbing?: Yes Do you have electricity?: Yes Attestation statement:: This patient has been screened for Hepatitis A risk factors. I have reviewed the patient's past medical history: Yes Medical History: Reports:: Cancer (lung), Chronic Obstructive Pulmonary Disease (COPD), Coronary Artery Disease, Hyperlipidemia, Hypertension, Internal Pacemaker Denies:: Diabetes Mellitus Type 1, Diabetes Mellitus Type 2 Other Medical History: Reports: Thyroid Disease Other Surgeries: Yes: Cardiac Catheterization, Cholecystectomy, Colonoscopy, Hysterectomy-Total, Hysterectomy-Partial, Pacemaker, Thyroidectomy, Other (MASS REMOVED FROM THYROID) Amputation: No Fractures: No - Social History Smoking Status: Former smoker Tobacco Type: cigarettes # Packs/Day (cigarettes): 2 #Yrs smoked (if former smoker): 30 Alcohol Intake: never Alcohol Intake Frequency:: other Substance Use Type: denies use Occupational Status: retired Housing: house Household Members: spouse Family Hx:: Heart Attack ROS Obtained: Yes All systems reviewed & no additional complaints - Constitutional Constitutional: Denies fever(s), Denies lethargy, Denies weakness - Cardiovascular Cardiovascular: Denies chest pain, Denies chest pain at rest, Reports dyspnea, Reports dyspnea on exertion - Respiratory Respiratory: Yes chest congestion, Yes cough, Yes wheezing - Gastrointestinal Gastrointestingal: Denies: abdominal pain - Musculoskeletal Musculoskeletal: Denies muscle cramps, Denies muscle weakness, Denies muscle aches - Integumentary/Breasts Skin/Breast: Denies rash, Denies skin pain - Neurologic Neurologic: Denies seizure-like activity, Denies syncope, Denies weakness - Hematologic/Lymphatic Henatologic/Lymphatic: Denies easy bleeding Physical Exam - General General appearance: alert, in no apparent distress - Head Head exam: atraumatic, normocephalic, normal inspection - Eye Eye exam: Present: normal appearance, PERRL, EOMI - ENT ENT exam: Present: normal exam, normal oropharynx, mucous membranes moist, TM's normal bilaterally, normal external ear exam - Chest Chest inspection: Present: normal inspection, symmetric chest wall rise. Absent: tenderness - Respiratory Respiratory exam: Present: normal lung sounds bilaterally - Cardiovascular Cardiovascular exam: Present: regular rate, normal rhythm. Absent: JVD - Abdominal Exam Abdominal exam: Present: soft, normal bowel sounds. Absent: distention, tenderness, guarding - Extremities Exam Extremities exam: Present: normal inspection, full ROM, normal capillary refill, other (large bruise to left arm, post cath). Absent: calf tenderness - Neurological Exam Neurological exam: Present: alert, oriented X3 - Psychiatric Psychiatric exam: Present: normal affect, normal mood - Skin Skin exam: Present: warm, dry. Absent: rash
[2018-12-05 12:44] LABS: Basophils % 0.3 % (0.1-2.0); Eosinophils # 0.1 K/mm3 (0.0-0.4); Eosinophils % 2.1 % (0.1-12.0); Hematocrit 28.6 % (37.0-47.0); Hemoglobin 8.9 g/dL (12.2-16.2); Lymphocytes # 1.3 K/mm3 (0.7-4.5); Lymphocytes % 19.2 % (10-50); Mean Corpuscular Volume 100.4 fl (81-99); Monocytes # 0.4 K/mm3 (0.1-1.0); Monocytes % 5.9 % (1.7-9.3); Neutrophils # 4.8 K/mm3 (1.8-7.8); Neutrophils % 72.4 % (37.0-80.0); Platelet Count 212 K/mm3 (142-424); Red Blood Count 2.85 M/mm3 (4.20-5.40); Red Cell Distribution Width 13.6 % (11.5-17.5); White Blood Count 6.7 K/mm3 (4.8-10.8)
[2018-12-05 12:57] LABS: Anion Gap 14.9 mEq/L (5-15); Calcium 8.8 mg/dL (8.5-10.1)
--- NOTE | 2018-12-05 14:53 | Consult Report ---
History of Present Illness Consult date: 12/05/18 Requesting physician: Chace Negron Consult reason: chest pain Chief complaint: chest pain Additional Medical History:: 1. Coronary artery disease, followed by Dr. Marta Verdugo. History of coronary artery stenting approximately 4 or 5 years ago, Dr. Derek Valdez. [facility], 02/2015, mid LAD stenosis C. NIMCO to LAD and Diagonal arteries, 04/2015, [facility], Dr. Royal Solis NIMCO to RCA and PDA 2. Hypertension treated for more than 10 years. 3. Hyperlipidemia treated for more than 10 years. 4. Remote tobacco use discontinued 7 years ago. She smoked for more than 40 years. A. 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 has been off therapy since 08/2017. keytruda was stopped due to weight loss- unclear if cause of weight loss. pt reports good appetite. scans are stable". 05/2018, per Dr. Eden 5. History of cholecystectomy and appendectomy 6. Chronic obstructive pulmonary disease with home oxygen use. Followed by Dr. Haddad. 7. History of thyroidectomy, chronic thyroid supplementation. 8. CKD, stage 4 with Cr 2.2 and GFR 22, 03/19/2015. 9. Complete heart block, 02/2015 A. PPM, placed, 02/2015, then removed due to wound dehiscence, 03/2015, with several days of IV antibiotics (cultures showed only staph epidermidis) B. Right sided PPM placed, 03/2015 10. Cardiomyopathy, LVEF 40% by echo, 2015, 05/2018 A. Recommendation for upgrade to BiV pacemaker refused by patient 11. Carotid artery stenosis A. CNI, 03/2018, 20-49% ICA stenosis bilaterally History of present illness: This is an 83-year-old white female who presented to the emergency department today with complaints of shortness of breath and cough. The patient states that her shortness of breath and cough has been persistent for over a week. She states that she feels like she needs to cough up something but she is unable to cough up any sputum. The patient reports that last week when she came into the hospital she was having the same symptoms. She did undergo a left cardiac catheterization last week and had a stent placed her right coronary artery as well as her PDA. The patient did tolerate this procedure well. She states that since this time she has remained short of breath and with a cough. She saw her primary care provider yesterday and received a steroid shot but this did not help her symptoms either. She states that her coughing and shortness of breath worsened overnight and she was just very fatigued and unable to do anything for herself. Her then brought her into the emergency department today because of her progressively worsening symptoms. She does report that with her shortness of breath she feels like there is a tight band across her upper abdominal region. She does report having some nausea. She denies any diaphoresis. She denies any fevers. She does state that she was really shaky this morning and she is unsure whether or not this was chills. She denies any e bernard, vomiting, diarrhea, PND or orthopnea. She does report that breathing treatments has helped with her shortness of breath a little bit since being in the emergency department. Upon arrival to the emergency department she does have an elevated troponin at 0.27 which is likely secondary to her cardiac catheterization with stenting last week. She also has a right lower lobe pneumonia noted on chest x-ray. She has been started on IV antibiotics. [facility] History I have reviewed the patient's past medical history: Yes Medical History: Reports:: Cancer (lung), Chronic Obstructive Pulmonary Disease (COPD), Coronary Artery Disease, Hyperlipidemia, Hypertension, Internal Pacemaker Denies:: Diabetes Mellitus Type 1, Diabetes Mellitus Type 2 *Have you ever received a pneumonia vaccine?: No *Have you received a flu vaccine this season?: Yes Other Medical History: Reports: Thyroid Disease Other Surgeries: Yes: Cardiac Catheterization, Cholecystectomy, Colonoscopy, Hysterectomy-Total, Hysterectomy-Partial, Pacemaker, Thyroidectomy, Other (MASS REMOVED FROM THYROID) Amputation: No Fractures: No - *Social History Smoking Status: Former smoker Tobacco Type: cigarettes # Packs/Day (cigarettes): 2 #Yrs smoked (if former smoker): 30 Alcohol Intake: never Alcohol Intake Frequency:: other Substance Use Type: denies use *Occupational Status:: retired Housing: house Household Members: spouse *Travel in the last 8 weeks: None Family Hx:: Heart Attack Meds Home Medications Medication Instructions Recorded Confirmed Type Aspirin [Aspir 81] 81 mg PO DAILY 03/29/17 12/05/18 History Metformin HCl [Glucophage 500mg 500 mg PO BID 03/29/17 12/05/18 History Tablet] [place]-3 Fatty Acids/Fish Oil [Fish 1 each PO DAILY 03/29/17 12/05/18 History Oil 1,000 mg Capsule] PARoxetine HCl [Paxil] 20 mg PO DAILY 03/29/17 12/05/18 History Simvastatin 40 mg PO DAILY 03/29/17 12/05/18 History chlordiazepoxide 25 mg capsule 25 mg PO BID cap 04/24/17 12/05/18 History doxazosin 2 mg tablet 4 mg PO HS tab 04/24/17 12/05/18 History Ferrous Gluconate [Ferrous 324 mg PO DAILY 06/10/17 12/05/18 History Gluconate 324mg Tab] pantoprazole 40 mg tablet,delayed 40 mg PO DAILY #90 tab 07/27/17 12/05/18 Rx release Carvedilol [Carvedilol 6.25mg Tab] 6.25 mg PO BID 08/02/18 12/05/18 History Spironolactone [Spironolactone 25 mg PO DAILY 08/03/18 12/05/18 History 25mg Tablet] tolterodine 2 mg tablet 2 mg PO BID #60 tab 08/14/18 12/05/18 Rx levothyroxine 100 mcg tablet 100 mcg PO DAILY tab 10/11/18 12/05/18 History clopidogrel 75 mg tablet 75 mg PO DAILY #30 tab 11/13/18 12/05/18 Rx lisinopril 10 mg tablet 10 mg PO DAILY #30 tab 11/13/18 12/05/18 Rx Allergies Allergy/AdvReac Type Severity Reaction Status Date / Time Penicillins Allergy Unknown Verified 10/11/18 11:10 morphine AdvReac Severe SHORTNESS Verified 10/11/18 11:10 OF BREATH Review of Systems - Review of Systems Review of systems:: pertinent systems reviewed and negative unless documented below - Constitutional Reports chills (Questionable), Reports fatigue, Reports malaise - *Cardiovascular Reports chest pain, Reports chest pain at rest, Reports shortness of breath, Reports shortness of breath with activity - *Respiratory Reports chest congestion, Reports cough, Reports shortness of breath, Reports shortness of breath with activity, Reports pain on inspiration, Reports pain with cough - *Gastrointestinal Reports nausea - *Musculoskeletal Reports body aches - *Neurologic Denies seizure-like activity, Denies fainting, Denies weakness Exam Vital signs and Labs for Last 24 Hours: Temp Pulse Resp BP Pulse Ox 98.4 F 88 18 111/55 L 98 12/05/18 14:31 12/05/18 14:31 12/05/18 12:05 12/05/18 14:31 12/05/18 14:31 Laboratory Results - last 24 hr 12/05/18 12:33: WBC 6.7, RBC 2.85 L, Hgb 8.9 L, Hct 28.6 L, MCV 100.4 H, MCH 31.1, MCHC 31.0 L, RDW 13.6, Plt Count 212, MPV 7.0 L, Neut % (Auto) 72.4, Lymph % (Auto) 19.2, [place] % (Auto) 5.9, Eos % (Auto) 2.1, Baso % (Auto) 0.3, Neut # (Auto) 4.8, Lymph # (Auto) 1.3, [place] # (Auto) 0.4, Eos # (Auto) 0.1, Baso # (Auto) 0.0 12/05/18 12:33: Sodium 137, Potassium 4.9, Chloride 102, Carbon Dioxide 25, Anion Gap 14.9, BUN 17, Creatinine 0.97, Estimated Creat Clear 50, Estimated GFR 55 L, Est GFR ( Amer) 67, Glucose 88, Calcium 8.8, Troponin I 0.25 H 12/05/18 12:33: Lactate 2.5 H 12/05/18 13:58: Troponin I 0.27 H I & O for Last 24 hours: Intake & Output 12/02/18 12/03/18 12/04/18 12/05/18 23:59 23:59 23:59 23:59 Weight 157 lb Narrative: EKG is AV pacing with PVCs. - Constitutional no acute distress, average body habitus - *Routine HEENT Exam Head: Present: normocephalic, atraumatic Eye: Present: EOMI, PERRL ENT: Present: mucous membranes moist - *Routine Neck Exam Present: supple, full ROM, normal carotid upstroke. Absent: JVD, carotid bruit, lymphadenopathy - *Routine Respiratory Exam Present: decreased breath sounds, rhonchi, wheezes - *Routine Cardiovascular Exam Present: RRR, Normal S1, Normal S2. Absent: murmur, gallop - *Routine Abdominal Exam Present: soft, normoactive bowel sounds. Absent: tenderness, distended - *Routine Extremities Exam Present: full ROM, pulses intact, normal capillary refill. Absent: cyanosis, clubbing, edema - *Routine Skin Exam Present: intact, warm. Absent: erythema, rash - *Routine Neurological Exam Present: alert, oriented X3, CN II-XII intact. Absent: sensory deficit, motor deficit - Routine Psychiatric Exam Present: normal affect, normal thought process - Detailed Eye Exam Eyelids: Left normal inspection Assessment and Plan (1) Elevated troponin Current visit: Yes Status: Acute Category: Medical Code(s): R74.8 - Abnormal levels of other serum enzymes (2) Pneumonia Current visit: Yes Status: Acute Category: Medical Code(s): J18.9 - Pneumonia, unspecified organism (3) CAD (coronary artery disease) Current visit: Yes Status: Chronic Qualifiers: Category: Medical Code(s): I25.10 - Atherosclerotic heart disease of [place] coronary artery without angina pectoris (4) COPD (chronic obstructive pulmonary disease) Current visit: Yes Status: Chronic Qualifiers: Category: Medical Code(s): J44.9 - Chronic obstructive pulmonary disease, unspecified (5) Cardiomyopathy Current visit: No Status: Acute Qualifiers: Cardiomyopathy type: unspecified Qualified Code(s): I42.9 - Cardiomyopathy, unspecified Category: Medical Code(s): I42.9 - Cardiomyopathy, unspecified (6) Pacemaker Current visit: No Status: Acute Category: Medical Code(s): Z95.0 - Presence of cardiac pacemaker (7) Diastolic dysfunction Current visit: No Status: Chronic Category: Medical Code(s): I51.89 - Other ill-defined heart diseases (8) HTN (hypertension) Current visit: Yes Status: Chronic Category: Medical Code(s): I10 - Essential (primary) hypertension (9) HLD (hyperlipidemia) Current visit: Yes Status: Chronic Category: Medical Code(s): E78.5 - Hyperlipidemia, unspecified (10) CKD (chronic kidney disease) Current visit: Yes Status: Chronic Category: Medical Code(s): N18.9 - Chronic kidney disease, unspecified - Assessment and plan all Dx Assessment and Plan for all problems:: Plan: 1. The patient was admitted to the hospital for shortness of breath and cough. She is found to have a right lower lobe pneumonia. The patient has been started on IV antibiotics and breathing treatments per her primary care provider. Will defer. 2. The patient does have an elevated troponin at 0.27, which is likely from her cardiac catheterization on Monday of last week where she had stenting to her right coronary artery and PDA. No plans for invasive cardiac testing at this time unless the patient has recalcitrant angina. 3. Her coronary artery disease is likely stable. 4. Her blood pressure is well controlled while I am in her room. Her blood pressure is 115/55. 5. LDL goal is less than 55. 6. The patient does have a history of COPD. Will defer to her primary care provider. 7. The patient does have bruising to her right upper extremity from her heart cath last week. She denies any pain or tenderness. No hematomas palpated. 8. Cardiomyopathy is present with an ejection fraction of 40% on [facility] last week. We will obtain an echocardiogram at this time. 9. Further recommendations will be made pending the patient's response to treatment. Thank you for the opportunity to help participate in the care of this patient.
--- NOTE | 2018-12-05 15:55 | History & Physical Report ---
*Admission Date: 12/05/18 *Chief complaint: Dyspnea and cough *History of present illness: This is an 83-year-old white female who presented to the emergency department today with complaints of shortness of breath and cough. The patient states that her shortness of breath and cough has been persistent for over a week. She states that she feels like she needs to cough up something but she is unable to cough up any sputum. The patient reports that last week when she came into the hospital she was having the same symptoms. She did undergo a left cardiac catheterization last week and had a stent placed her right coronary artery as well as her PDA. The patient did tolerate this procedure well. She states that since this time she has remained short of breath and with a cough. She saw her primary care provider yesterday and received a steroid shot but this did not help her symptoms either. She states that her coughing and shortness of breath worsened overnight and she was just very fatigued and unable to do anything for herself. Her then brought her into the emergency department today because of her progressively worsening symptoms. She does report that with her shortness of breath she feels like there is a tight band across her upper abdominal region. She does report having some nausea. She denies any diaphoresis. She denies any fevers. She does state that she was really shaky this morning and she is unsure whether or not this was chills. She denies any edema, vomiting, diarrhea, PND or orthopnea. She does report that breathing treatments has helped with her shortness of breath a little bit since being in the emergency department. Upon arrival to the emergency department she does have an elevated troponin at 0.27 which is likely secondary to her cardiac catheterization with stenting last week. She also has a right lower lobe pneumonia noted on chest x-ray. She has been started on IV antibiotics. Above note per cardiology. Agree with assessment of history. Patient notes that she had a dose of injectable medication yesterday followed by a steroid prescription, she thinks it might be Levaquin, and she received 500 mg and her received 750 mg intramuscular. 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, Myocardial Infarction Denies:: Diabetes Mellitus Type 1, Diabetes Mellitus Type 2 *Have you ever received a pneumonia vaccine?: Yes *Have you received a flu vaccine this season?: No Other Medical History: Reports: Anemia, Thyroid Disease Other Surgeries: Yes: Cardiac Catheterization, Cholecystectomy, Colonoscopy, Hysterectomy-Total, Hysterectomy-Partial, Pacemaker, Thyroidectomy, Other (MASS REMOVED FROM THYROID) Amputation: No Fractures: No - *Social History Educational Level: Completed High School Smoking Status: Former smoker Tobacco Type: cigarettes # Packs/Day (cigarettes): 1 #Yrs smoked (if former smoker): 30 Smoking End Date: 2007 Alcohol Intake: never Alcohol Intake Frequency:: other Substance Use Type: denies use *Occupational Status:: retired Housing: house Household Members: spouse *Travel in the last 8 weeks: None Family Hx:: Cancer, Heart Attack, Hyperlipidemia, Hypertension Review of Systems - Review of Systems Review of systems:: pertinent systems reviewed and negative unless documented below - Constitutional Reports anorexia, Reports fatigue, Denies fever(s) - Eyes Denies blind spots, Denies blurry vision, Denies change in vision - ENT Denies bleeding gums, Denies dizziness, Denies dry mouth - *Cardiovascular Reports chest pain, Reports shortness of breath, Denies excessive sweating, Denies irregular heart rhythm, Denies shortness of breath when lying down - *Respiratory Reports cough, Reports shortness of breath, Denies change in phlegm color, Denies chest congestion - *Gastrointestinal Denies abdominal pain, Denies belching, Denies bloating, Denies coffee ground vomit - *Musculoskeletal Reports abnormal walking - *Neurologic Denies seizure-like activity, Denies fainting, Denies weakness - Endocrine Denies excessive sweating - Hematologic/Lymphatic Denies easy bleeding, Denies easy bruising Meds Home Medications Medication Instructions Recorded Confirmed Type Aspirin [Aspir 81] 81 mg PO DAILY 03/29/17 12/05/18 History Metformin HCl [Glucophage 500mg 500 mg PO BID 03/29/17 12/05/18 History Tablet] [place]-3 Fatty Acids/Fish Oil [Fish 1 each PO DAILY 03/29/17 12/05/18 History Oil 1,000 mg Capsule] PARoxetine HCl [Paxil] 20 mg PO DAILY 03/29/17 12/05/18 History Simvastatin 40 mg PO DAILY 03/29/17 12/05/18 History chlordiazepoxide 25 mg capsule 25 mg PO BID cap 04/24/17 12/05/18 History doxazosin 2 mg tablet 4 mg PO HS tab 04/24/17 12/05/18 History Ferrous Gluconate [Ferrous 324 mg PO DAILY 06/10/17 12/05/18 History Gluconate 324mg Tab] pantoprazole 40 mg tablet,delayed 40 mg PO DAILY #90 tab 07/27/17 12/05/18 Rx release Carvedilol [Carvedilol 6.25mg Tab] 6.25 mg PO BID 08/02/18 12/05/18 History Spironolactone [Spironolactone 25 mg PO DAILY 08/03/18 12/05/18 History 25mg Tablet] tolterodine 2 mg tablet 2 mg PO BID #60 tab 08/14/18 12/05/18 Rx levothyroxine 100 mcg tablet 100 mcg PO DAILY tab 10/11/18 12/05/18 History clopidogrel 75 mg tablet 75 mg PO DAILY #30 tab 11/13/18 12/05/18 Rx lisinopril 10 mg tablet 10 mg PO DAILY #30 tab 11/13/18 12/05/18 Rx Allergies Allergy/AdvReac Type Severity Reaction Status Date / Time Penicillins Allergy Unknown Verified 10/11/18 11:10 morphine AdvReac Severe SHORTNESS Verified 10/11/18 11:10 OF BREATH Exam Vital signs and Labs for Last 24 Hours: Temp Pulse Resp BP Pulse Ox 98.0 F 78 18 122/78 94 L 12/05/18 14:59 12/05/18 14:59 12/05/18 14:59 12/05/18 14:59 12/05/18 14:37 Laboratory Results - last 24 hr 12/05/18 12:33: WBC 6.7, RBC 2.85 L, Hgb 8.9 L, Hct 28.6 L, MCV 100.4 H, MCH 31.1, MCHC 31.0 L, RDW 13.6, Plt Count 212, MPV 7.0 L, Neut % (Auto) 72.4, Lymph % (Auto) 19.2, [place] % (Auto) 5.9, Eos % (Auto) 2.1, Baso % (Auto) 0.3, Neut # (Auto) 4.8, Lymph # (Auto) 1.3, [place] # (Auto) 0.4, Eos # (Auto) 0.1, Baso # (Auto) 0.0 12/05/18 12:33: Sodium 137, Potassium 4.9, Chloride 102, Carbon Dioxide 25, Anion Gap 14.9, BUN 17, Creatinine 0.97, Estimated Creat Clear 50, Estimated GFR 55 L, Est GFR ( Amer) 67, Glucose 88, Calcium 8.8, Troponin I 0.25 H 12/05/18 12:33: Lactate 2.5 H 12/05/18 13:58: Troponin I 0.27 H I & O for Last 24 hours: Intake & Output 12/03/18 12/04/18 12/05/18 12/06/18 11:59 11:59 11:59 11:59 Weight 159 lb 4 oz Narrative: Patient is awake, alert, sitting on the side of the bed. Somewhat dyspneic but in no acute distress. Lungs have rhonchi in both lower lung [place]. Diminished air movement-the seems to be her baseline. Heart rate regular. Right forearm bruised from her recent radial catheterization procedure but no hematoma. Good hand perfusion. Good radial pulses. No pedal edema. Oropharynx clear, no lesions. Pupils equal and reactive. Assessment and Plan (1) Elevated troponin Current visit: Yes Status: Acute Category: Medical Code(s): R74.8 - Abnormal levels of other serum enzymes (2) Pneumonia Current visit: Yes Status: Acute Category: Medical Code(s): J18.9 - Pneumonia, unspecified organism (3) CAD (coronary artery disease) Current visit: Yes Status: Chronic Qualifiers: Category: Medical Code(s): I25.10 - Atherosclerotic heart disease of [place] coronary artery without angina pectoris (4) COPD (chronic obstructive pulmonary disease) Current visit: Yes Status: Chronic Qualifiers: Category: Medical Code(s): J44.9 - Chronic obstructive pulmonary disease, unspecified (5) Cardiomyopathy Current visit: No Status: Acute Qualifiers: Cardiomyopathy type: unspecified Qualified Code(s): I42.9 - Cardiomyopathy, unspecified Category: Medical Code(s): I42.9 - Cardiomyopathy, unspecified (6) Pacemaker Current visit: No Status: Acute Category: Medical Code(s): Z95.0 - Presence of cardiac pacemaker (7) Diastolic dysfunction Current visit: No Status: Chronic Category: Medical Code(s): I51.89 - Other ill-defined heart diseases (8) HTN (hypertension) Current visit: Yes Status: Chronic Category: Medical Code(s): I10 - Essential (primary) hypertension (9) HLD (hyperlipidemia) Current visit: Yes Status: Chronic Category: Medical Code(s): E78.5 - Hyperlipidemia, unspecified (10) CKD (chronic kidney disease) Current visit: Yes Status: Chronic Category: Medical Code(s): N18.9 - Chronic kidney disease, unspecified - Assessment and plan all Dx Assessment and Plan for all problems:: Agree with admission secondary to significant medical comorbidities. Initiate therapy for community acquired pneumonia with possible healthcare acquired status given her recent hospital stay with Levaquin-patient is penicillin allergic so I will stop Zosyn ordered by the ER and add clindamycin. Continue to follow-up by Dr. Collins as an inpatient.
[2018-12-06 06:12] LABS: Basophils % 0.3 % (0.1-2.0); Eosinophils # 0.2 K/mm3 (0.0-0.4); Eosinophils % 3.5 % (0.1-12.0); Hematocrit 27.1 % (37.0-47.0); Hemoglobin 8.5 g/dL (12.2-16.2); Lymphocytes # 1.1 K/mm3 (0.7-4.5); Lymphocytes % 24.9 % (10-50); Mean Corpuscular HGB Conc 31.4 g/dL (31.8-35.4); Mean Corpuscular Volume 99.7 fl (81-99); Monocytes # 0.3 K/mm3 (0.1-1.0); Monocytes % 7.8 % (1.7-9.3); Neutrophils # 2.7 K/mm3 (1.8-7.8); Neutrophils % 63.6 % (37.0-80.0); Platelet Count 189 K/mm3 (142-424); Red Blood Count 2.72 M/mm3 (4.20-5.40); Red Cell Distribution Width 13.7 % (11.5-17.5); White Blood Count 4.3 K/mm3 (4.8-10.8)
[2018-12-06 06:37] LABS: Anion Gap 12.5 mEq/L (5-15); Calcium 8.5 mg/dL (8.5-10.1)
--- NOTE | 2018-12-06 07:34 | Pharmacy Consult Notes ---
[facility] Pharmacy VTE Monitoring - Patient Demographics Admission date: 12/06/18 Report Date: 12/06/18 Time: 07:33 Allergies/Adverse Reactions: Patient Allergies Penicillins Allergy (Unknown, Verified 10/11/18 11:10) morphine Adverse Reaction (Severe, Verified 10/11/18 11:10) SHORTNESS OF BREATH Height: 1.55 m Weight: 72.235 kg Patient Problems: Current Active Problems Pneumonia (Acute) Elevated troponin (Acute) HTN (hypertension) (Chronic) HLD (hyperlipidemia) (Chronic) CKD (chronic kidney disease) (Chronic) CAD (coronary artery disease) (Chronic) COPD (chronic obstructive pulmonary disease) (Chronic) - VTE Risk Labs: VTE Related Lab Results Hgb 8.5 g/dL (12.2-16.2) L 12/06/18 05:45 Hct 27.1 % (37.0-47.0) L 12/06/18 05:45 Plt Count 189 K/mm3 (142-424) 12/06/18 05:45 BUN 15 mg/dL (7-18) 12/06/18 05:45 Creatinine 0.91 mg/dL (0.55-1.02) 12/06/18 05:45 Estimated Creat Clear 50 mL/min (50-200) 12/06/18 05:45 Was VTE Risk Assessment Performed: Yes VTE Score: 6 VTE Risk Level: Moderate Risk Clinical Trial Participant: No - Prophylaxis VTE Prophylaxis Ordered?: Yes Types of VTE Prophylaxis: TEDS Knee High
--- NOTE | 2018-12-06 07:42 | Progress Note ---
Internal Medicine - PN: Subj *Date: 12/06/18 *Time: 07:41 Interval history: Patient reports overall feeling about the same. She has a congested cough and is unable to produce any sputum. Exam Vital signs and Labs for Last 24 Hours: Temp Pulse Resp BP Pulse Ox 98.3 F 64 20 152/53 H 98 12/06/18 04:00 12/06/18 05:36 12/06/18 04:00 12/06/18 04:00 12/06/18 05:36 Laboratory Results - last 24 hr 12/05/18 12:33: WBC 6.7, RBC 2.85 L, Hgb 8.9 L, Hct 28.6 L, MCV 100.4 H, MCH 31.1, MCHC 31.0 L, RDW 13.6, Plt Count 212, MPV 7.0 L, Neut % (Auto) 72.4, Lymph % (Auto) 19.2, [place] % (Auto) 5.9, Eos % (Auto) 2.1, Baso % (Auto) 0.3, Neut # (Auto) 4.8, Lymph # (Auto) 1.3, [place] # (Auto) 0.4, Eos # (Auto) 0.1, Baso # (Auto) 0.0 12/05/18 12:33: Sodium 137, Potassium 4.9, Chloride 102, Carbon Dioxide 25, Anion Gap 14.9, BUN 17, Creatinine 0.97, Estimated Creat Clear 50, Estimated GFR 55 L, Est GFR ( Amer) 67, Glucose 88, Calcium 8.8, Troponin I 0.25 H 12/05/18 12:33: Lactate 2.5 H 12/05/18 13:58: Troponin I 0.27 H 12/06/18 00:17: Troponin I 0.27 H 12/06/18 05:45: WBC 4.3 L D, RBC 2.72 L, Hgb 8.5 L, Hct 27.1 L, MCV 99.7 H, MCH 31.3 H, MCHC 31.4 L, RDW 13.7, Plt Count 189, MPV 7.0 L, Neut % (Auto) 63.6, Lymph % (Auto) 24.9, [place] % (Auto) 7.8, Eos % (Auto) 3.5, Baso % (Auto) 0.3, Neut # (Auto) 2.7, Lymph # (Auto) 1.1, [place] # (Auto) 0.3, Eos # (Auto) 0.2, Baso # (Auto) 0.0 12/06/18 05:45: Sodium 139, Potassium 4.5, Chloride 104, Carbon Dioxide 27, Anion Gap 12.5, BUN 15, Creatinine 0.91, Estimated Creat Clear 50, Estimated GFR 59, Est GFR ( Amer) 72, Glucose 88, Calcium 8.5 I & O for Last 24 hours: Intake & Output 12/03/18 12/04/18 12/05/18 12/06/18 11:59 11:59 11:59 11:59 Intake Total 240 / 240 Balance 240 / 240 Weight 159 lb 4 oz Narrative: She is in no distress. Lungs have expiratory wheezes with diminished breath sounds at the right base. Deep breathing triggers significant bronchitic cough. Heart has a regular rate and rhythm. Assessment and Plan (1) Pneumonia Current visit: Yes Status: Acute Category: Medical Code(s): J18.9 - Pneumonia, unspecified organism (2) Elevated troponin Current visit: Yes Status: Acute Category: Medical Code(s): R74.8 - Abnormal levels of other serum enzymes (3) CAD (coronary artery disease) Current visit: Yes Status: Chronic Qualifiers: Category: Medical Code(s): I25.10 - Atherosclerotic heart disease of [place] coronary artery without angina pectoris (4) COPD (chronic obstructive pulmonary disease) Current visit: Yes Status: Chronic Qualifiers: Category: Medical Code(s): J44.9 - Chronic obstructive pulmonary disease, unspecified (5) Cardiomyopathy Current visit: No Status: Acute Qualifiers: Cardiomyopathy type: unspecified Qualified Code(s): I42.9 - Cardiomyopathy, unspecified Category: Medical Code(s): I42.9 - Cardiomyopathy, unspecified (6) Pacemaker Current visit: No Status: Acute Category: Medical Code(s): Z95.0 - Presence of cardiac pacemaker (7) Diastolic dysfunction Current visit: No Status: Chronic Category: Medical Code(s): I51.89 - Other ill-defined heart diseases (8) HTN (hypertension) Current visit: Yes Status: Chronic Category: Medical Code(s): I10 - Essential (primary) hypertension (9) HLD (hyperlipidemia) Current visit: Yes Status: Chronic Category: Medical Code(s): E78.5 - Hyperlipidemia, unspecified (10) CKD (chronic kidney disease) Current visit: Yes Status: Chronic Category: Medical Code(s): N18.9 - Chronic kidney disease, unspecified - Assessment and plan all Dx Assessment and Plan for all problems:: Continue IV antibiotics. Patient be given Mucomyst breathing treatments to see if that helps with sputum clearance. PA and lateral chest x-ray today
--- NOTE | 2018-12-07 07:26 | Progress Note ---
Internal Medicine - PN: Subj *Date: 12/07/18 *Time: 07:24 Interval history: Patient admits she feels better this morning. Her cough continues to remain nonproductive despite the rattling in her chest. Yesterday she felt like she benefited from Mucomyst. This morning she tells me it makes her nauseous Exam Vital signs and Labs for Last 24 Hours: Temp Pulse Resp BP Pulse Ox 97.6 F 69 20 153/58 H 98 12/07/18 04:00 12/07/18 06:15 12/07/18 04:00 12/07/18 04:00 12/07/18 06:15 I & O for Last 24 hours: Intake & Output 12/04/18 12/05/18 12/06/18 12/07/18 11:59 11:59 11:59 11:59 Intake Total 240 / 240 1837 / 1837 Balance 240 / 240 1837 / 1837 Weight 159 lb 4 oz 160 lb 0.008 oz - Constitutional no acute distress - *Routine Respiratory Exam Present: rales (Rales right base are faint distant breath sounds) - *Routine Cardiovascular Exam Present: RRR, Normal S1, Normal S2 Assessment and Plan (1) Pneumonia Current visit: Yes Status: Acute Category: Medical Code(s): J18.9 - Pneumonia, unspecified organism (2) Elevated troponin Current visit: Yes Status: Acute Category: Medical Code(s): R74.8 - Abnormal levels of other serum enzymes (3) CAD (coronary artery disease) Current visit: Yes Status: Chronic Qualifiers: Category: Medical Code(s): I25.10 - Atherosclerotic heart disease of [place] coronary artery without angina pectoris (4) COPD (chronic obstructive pulmonary disease) Current visit: Yes Status: Chronic Qualifiers: Category: Medical Code(s): J44.9 - Chronic obstructive pulmonary disease, unspecified (5) Cardiomyopathy Current visit: No Status: Acute Qualifiers: Cardiomyopathy type: unspecified Qualified Code(s): I42.9 - Cardiomyopathy, unspecified Category: Medical Code(s): I42.9 - Cardiomyopathy, unspecified (6) Pacemaker Current visit: No Status: Acute Category: Medical Code(s): Z95.0 - Presence of cardiac pacemaker (7) Diastolic dysfunction Current visit: No Status: Chronic Category: Medical Code(s): I51.89 - Other ill-defined heart diseases (8) HTN (hypertension) Current visit: Yes Status: Chronic Category: Medical Code(s): I10 - Essential (primary) hypertension (9) HLD (hyperlipidemia) Current visit: Yes Status: Chronic Category: Medical Code(s): E78.5 - Hyperlipidemia, unspecified (10) CKD (chronic kidney disease) Current visit: Yes Status: Chronic Category: Medical Code(s): N18.9 - Chronic kidney disease, unspecified - Assessment and plan all Dx Assessment and Plan for all problems:: Continue IV antibiotics. Increase ambulation today. She continues to improve will be discharged tomorrow
--- NOTE | 2018-12-07 16:57 | Discharge Summary ---
General - General Admission date:: 12/05/18 Discharge date: 12/07/18 HPI HPI: This is an 83-year-old white female who presented to the emergency department today with complaints of shortness of breath and cough. The patient states that her shortness of breath and cough has been persistent for over a week. She states that she feels like she needs to cough up something but she is unable to cough up any sputum. The patient reports that last week when she came into the hospital she was having the same symptoms. She did undergo a left cardiac catheterization last week and had a stent placed her right coronary artery as well as her PDA. The patient did tolerate this procedure well. She states that since this time she has remained short of breath and with a cough. She saw her primary care provider yesterday and received a steroid shot but this did not help her symptoms either. She states that her coughing and shortness of breath worsened overnight and she was just very fatigued and unable to do anything for herself. Her then brought her into the emergency department today because of her progressively worsening symptoms. She does report that with her shortness of breath she feels like there is a tight band across her upper abdominal region. She does report having some nausea. She denies any diaphoresis. She denies any fevers. She does state that she was really shaky this morning and she is unsure whether or not this was chills. She denies any edema, vomiting, diarrhea, PND or orthopnea. She does report that breathing treatments has helped with her shortness of breath a little bit since being in the emergency department. Upon arrival to the emergency department she does have an elevated troponin at 0.27 which is likely secondary to her cardiac catheterization with stenting last week. She also has a right lower lobe pneumonia noted on chest x-ray. She has been started on IV antibiotics. Above note per cardiology. Agree with assessment of history. Patient notes that she had a dose of injectable medication yesterday followed by a steroid prescription, she thinks it might be Levaquin, and she received 500 mg and her received 750 mg intramuscular. Hospital Course Hospital Course: Patient was admitted and placed on broad-spectrum antibiotic coverage. By the following morning, December 06, patient noticed slight improvement in dyspnea as well as wheezing. Cough remains loose but nonproductive. Use of Mucomyst did not aid with sputum production and ultimately made the patient nauseous. Broad-spectrum antibiotics were continued and on December 07 patient noted significant improvement in energy level as well as breathlessness despite cough persisting. Blood cultures are negative at this time. Patient was observed throughout the day on December 07 and was able to ambulate with some assistance. Patient feels like she has adequate help at home. She was discharged home and will continue oral Levaquin. She will follow-up in [facility] on Monday Objective Vital signs: Temp Pulse Resp BP Pulse Ox 97.9 F 64 22 143/57 H 100 12/07/18 15:57 12/07/18 15:57 12/07/18 15:57 12/07/18 15:57 12/07/18 15:57 Results Labs on day of discharge: Preliminary micro results at discharge 12/05/18 12:33 Blood Culture - Preliminary Blood NO GROWTH AFTER 48 HOURS 12/05/18 12:33 Blood Culture - Preliminary Blood NO GROWTH AFTER 48 HOURS DS: Diagnosis - Discharge Diagnosis (1) Pneumonia Status: Acute (2) Elevated troponin Status: Acute (3) CAD (coronary artery disease) Status: Chronic (4) COPD (chronic obstructive pulmonary disease) Status: Chronic (5) Cardiomyopathy Status: Acute (6) Pacemaker Status: Acute (7) Diastolic dysfunction Status: Chronic (8) HTN (hypertension) Status: Chronic (9) HLD (hyperlipidemia) Status: Chronic (10) CKD (chronic kidney disease) Status: Chronic Discharge Plan - Patient Discharge Instructions ACTIVITY: Continue current activity DIET: continue same diet Patient Instructions: Cardiac Troponin, Pneumonia-Adult, High Blood Pressure, DI for Pneumonia -- Adult - Follow up Plan Follow up with: Joe Collins MD [Staff Physician] - 12/10/18 Disposition: Home, Self-[facility] Medications: Home Medications Medication Instructions Recorded Confirmed Type Aspirin [Aspir 81] 81 mg PO DAILY 03/29/17 12/05/18 History Metformin HCl [Glucophage 500mg 500 mg PO BID 03/29/17 12/05/18 History Tablet] [place]-3 Fatty Acids/Fish Oil [Fish 1 each PO DAILY 03/29/17 12/05/18 History Oil 1,000 mg Capsule] PARoxetine HCl [Paxil] 20 mg PO HS 03/29/17 12/06/18 History Simvastatin 40 mg PO HS 03/29/17 12/06/18 History chlordiazepoxide 25 mg capsule 25 mg PO BID cap 04/24/17 12/05/18 History doxazosin 2 mg tablet 4 mg PO HS tab 04/24/17 12/05/18 History Ferrous Gluconate [Ferrous 324 mg PO DAILY 06/10/17 12/05/18 History Gluconate 324mg Tab] pantoprazole 40 mg tablet,delayed 40 mg PO DAILY #90 tab 07/27/17 12/05/18 Rx release Carvedilol [Carvedilol 6.25mg Tab] 6.25 mg PO BID 08/02/18 12/05/18 History Spironolactone [Spironolactone 25 mg PO DAILY 08/03/18 12/05/18 History 25mg Tablet] tolterodine 2 mg tablet 2 mg PO BID #60 tab 08/14/18 12/05/18 Rx levothyroxine 100 mcg tablet 100 mcg PO DAILY tab 10/11/18 12/05/18 History clopidogrel 75 mg tablet 75 mg PO DAILY #30 tab 11/13/18 12/05/18 Rx lisinopril 10 mg tablet 10 mg PO DAILY #30 tab 11/13/18 12/05/18 Rx levoFLOXacin [Levofloxacin 750MG 750 mg PO DAILY #5 tab 12/07/18 Rx Tablet] Prescriptions/Medication Reconciliation: New levoFLOXacin [Levofloxacin 750MG Tablet] 750 mg PO DAILY #5 tab Continued doxazosin 2 mg tablet 4 mg PO HS tab pantoprazole 40 mg tablet,delayed release 40 mg PO DAILY #90 tab lisinopril 10 mg tablet 10 mg PO DAILY #30 tab chlordiazepoxide 25 mg capsule 25 mg PO BID cap tolterodine 2 mg tablet 2 mg PO BID #60 tab levothyroxine 100 mcg tablet 100 mcg PO DAILY tab clopidogrel 75 mg tablet 75 mg PO DAILY #30 tab Metformin HCl [Glucophage 500mg Tablet] 500 mg PO BID Simvastatin 40 mg PO HS PARoxetine HCl [Paxil] 20 mg PO HS [place]-3 Fatty Acids/Fish Oil [Fish Oil 1,000 mg Capsule] 1 each PO DAILY Aspirin [Aspir 81] 81 mg PO DAILY Carvedilol [Carvedilol 6.25mg Tab] 6.25 mg PO BID Spironolactone [Spironolactone 25mg Tablet] 25 mg PO DAILY Ferrous Gluconate [Ferrous Gluconate 324mg Tab] 324 mg PO DAILY - Problem Reconciliation Problems Reviewed?: Yes
--- NOTE | 2018-12-08 12:19 | Electrocardiograph Report ---
APPROVED REPORT Exam: Resting ECG HR:75 bpm ECG Measurements Heart Rate 75 AXES QRSd 184 QRS -78 QT 464 T103 QTc 518 <Conclusion> AV sequential or dual chamber electronic pacemaker Electronically signed by : Joe Newton, 12/08/2018 12:18:20
== END 2018-12-07 17:37 | disposition home or self-care (01) ==
LOC: 2ND 12:15 → ER 12:15 → 2ND 15:37
PROVIDERS: ADMIT Internal Medicine Adolescent Medicine; ATTEND Family Medicine
CPT/HCPCS: 36415; 71020; 71046; 80048; 83605; 84484; 85025; 87040; 93005; 94640; 94761; 96365; 99285; G0378; J1956; J2543

== ENCOUNTER 2018-12-26 18:56 | Observation (INO) ==
[2018-12-26 19:33] LABS: Basophils % 0.6 % (0.1-2.0); Eosinophils # 0.2 K/mm3 (0.0-0.4); Hematocrit 34.7 % (37.0-47.0); Lymphocytes # 1.8 K/mm3 (0.7-4.5); Lymphocytes % 30.2 % (10-50); Mean Corpuscular HGB Conc 28.8 g/dL (31.8-35.4); Mean Corpuscular Volume 104.4 fl (81-99); Mean Platelet Volume 7.3 fl (7.4-10.4); Monocytes # 0.4 K/mm3 (0.1-1.0); Neutrophils # 3.5 K/mm3 (1.8-7.8); Neutrophils % 59.2 % (37.0-80.0); Platelet Count 195 K/mm3 (142-424); Red Blood Count 3.33 M/mm3 (4.20-5.40); Red Cell Distribution Width 15.4 % (11.5-17.5); White Blood Count 5.9 K/mm3 (4.8-10.8)
--- NOTE | 2018-12-26 19:41 | Emergency Department Note ---
ED Disposition Clinical Impression: Atypical chest pain, Cardiomegaly Congestive heart failure Qualifiers: Heart failure type: diastolic Heart failure chronicity: acute on chronic Qualified Code(s): I50.33 - Acute on chronic diastolic (congestive) heart failure Disposition: Admitted as Observation Condition on Discharge: Fair Instructions: Heart Failure Additional Instructions: Patient being admitted to Dr. Collins per Dr. Freed Referrals: Provider,Referral, [Referring] - Time of Disposition: 20:12 - Critical Care Critical Care Time: No Attestation: On 12/26/18, the high probability of a clinically significant, sudden or life threatening deterioration of the following system(s) required my full and direct attention, intervention and personal management. The time I documented below is in addition to time spent performing reported procedures but includes the following listed in this critical care notation. Medical Decision Making - Medical Records Medical records reviewed: Yes: I reviewed the patient's medical records. - Johnny Inquiry Pt receiving controlled substance: No Johnny was queried for this patient: No Vital Signs: 12/26/18 19:03 Temperature 98.1 F Temperature Source Oral Pulse Rate [Right] 83 Respiratory Rate 18 Blood Pressure [Right Arm] 129/75 Blood Pressure Mean [Right Arm] 93 Blood Pressure Source [Right Arm] Automatic Cuff Blood Pressure Position [Right Arm] Supine 02 Sat by Pulse Oximetry 94 L Oxygen Delivery Method Room Air - Lab Data Lab results reviewed: Yes: I reviewed the patient's lab results. Lab Results 12/26/18 19:00: WBC 5.9, RBC 3.33 L, Hgb 10.0 L, Hct 34.7 L, MCV 104.4 H, MCH 30.0, MCHC 28.8 L, RDW 15.4, Plt Count 195, MPV 7.3 L, Neut % (Auto) 59.2, Lymph % (Auto) 30.2, [place] % (Auto) 6.0, Eos % (Auto) 4.0, Baso % (Auto) 0.6, Neut # (Auto) 3.5, Lymph # (Auto) 1.8, [place] # (Auto) 0.4, Eos # (Auto) 0.2, Baso # (Auto) 0.0 12/26/18 19:00: Sodium 139, Potassium 4.7, Chloride 104, Carbon Dioxide 26, Anion Gap 13.7, BUN 22 H, Creatinine 1.00, Estimated Creat Clear 50, Estimated GFR 53 L, Est GFR ( Amer) 64, Glucose 108 H, Calcium 8.7, Troponin I < 0.02 Result diagrams: 12/26/18 19:00 12/26/18 19:00 Orders (Tests/Meds): ED MEDICATIONS Generic Name Dose Route Start Last Admin Trade Name Freq PRN Reason Stop Dose Admin Sodium Chloride 1,000 mls @ 999 mls/hr 12/26/18 19:30 12/26/18 19:19 Sod Chlor 0.9% 1000ml Bag IV 12/26/18 20:30 999 mls/hr .Q1H1M ANNE-MARIE Administration Discontinued Medications Generic Name Dose Route Start Last Admin Trade Name Freq PRN Reason Stop Dose Admin Ketorolac Tromethamine 30 mg 12/26/18 19:17 12/26/18 19:19 Toradol 30mg/Ml Vial IV 12/26/18 19:18 30 mg ONCE ONE Administration - Radiology Data #1 Image(s): Chest Image Reviewed: Yes I reviewed the patient's radiology results, Yes I reviewed the patient's radiology image Preliminary Findings: Abnormal Chest x-ray reveals bilateral pleural effusions and cardiomegaly consistent with CHF Chest Pain HPI - General Chief Complaint: Chest Pain Stated Complaint: Chest Pain Time Seen by Provider: 12/26/18 19:32 Mode of Arrival: EMS Source of Information: Patient Limitations: No Limitations Description of Symptoms (Recalled from ER Triage Doc. by RN): Pt states she has "funny feeling" in chest and could not get her BP to take at home, no change after 2 nitro from EMS, 324 of ASA also given by EMS cath done by Dr Paige last week. - History of Present Illness HPI narrative: Patient is a 83-year-old white female who was seen by Dr. Paige about a week ago and had 2 stents put in today around 4 PM she started having a pressure type pain in her chest and about an hour ago was brought to the EMS station by her on the way here she was given aspirin and 3 nitroglycerin and her pain decreased only from an 8-5 her EKG shows sinus bradycardia with first-degree AV block and all of this information has been transmitted to Dr. Paige but we have not heard back from him yet when the process of doing labs and further work-up on this patient she still rates her pain 5 on a scale of 10 so I will put 1/2 inch of Nitropaste on chest pending further evaluation with labs and x- rays complaint: chest pain indicative of cardiac Duration: constant Activity at onset: during rest Pain location: substernal Quality: tightness, sharp Pain radiation: none Relieving factors: nitroglycerin, other (toradol) Exacerbating factors: nothing Context: other (Recent heart cath with stenting) Treatments prior to or on arrival for Cardiac Chest Pain: aspirin, nitroglycerin, other (Toradol) - Related Data Home Medications Medication Instructions Recorded Confirmed Aspirin [Aspir 81] 81 mg PO DAILY 03/29/17 12/26/18 Metformin HCl [Glucophage 500mg 500 mg PO BID 03/29/17 12/26/18 Tablet] [place]-3 Fatty Acids/Fish Oil [Fish 1 each PO DAILY 03/29/17 12/26/18 Oil 1,000 mg Capsule] PARoxetine HCl [Paxil] 20 mg PO HS 03/29/17 12/26/18 Simvastatin 40 mg PO HS 03/29/17 12/26/18 chlordiazepoxide 25 mg capsule 25 mg PO BID cap 04/24/17 12/26/18 doxazosin 2 mg tablet 4 mg PO HS tab 04/24/17 12/26/18 Ferrous Gluconate [Ferrous 324 mg PO DAILY 06/10/17 12/26/18 Gluconate 324mg Tab] Carvedilol [Carvedilol 6.25mg Tab] 6.25 mg PO BID 08/02/18 12/26/18 Spironolactone [Spironolactone 25 mg PO DAILY 08/03/18 12/26/18 25mg Tablet] levothyroxine 100 mcg tablet 100 mcg PO DAILY tab 10/11/18 12/26/18 Previous Rx's Medication Instructions Recorded pantoprazole 40 mg tablet,delayed 40 mg PO DAILY #90 tab 07/27/17 release tolterodine 2 mg tablet 2 mg PO BID #60 tab 08/14/18 clopidogrel 75 mg tablet 75 mg PO DAILY #30 tab 11/13/18 lisinopril 5 mg tablet 5 mg PO DAILY #30 tab 12/26/18 Allergies Allergy/AdvReac Type Severity Reaction Status Date / Time Penicillins Allergy Unknown Verified 12/26/18 09:44 morphine AdvReac Severe SHORTNESS Verified 12/26/18 09:44 OF BREATH [facility] History - Hepatitis A Screen Drug use history?: No High risk sexual behaviors?: No History of sexually transmitted infection?: No Currently employed?: No Childcare worker?: No Do you have indoor plumbing?: No Do you have electricity?: No Attestation statement:: This patient has been screened for Hepatitis A risk factors. I have reviewed the patient's past medical history: Yes Medical History: Reports:: Cancer, Chronic Obstructive Pulmonary Disease (COPD), Coronary Artery Disease, Hyperlipidemia, Hypertension, Internal Pacemaker, Myocardial Infarction Denies:: Diabetes Mellitus Type 1, Diabetes Mellitus Type 2 Other Medical History: Reports: Anemia, Thyroid Disease Other Surgeries: Yes: Cardiac Catheterization, Cholecystectomy, Colonoscopy, Coronary Stent, Hysterectomy-Total, Hysterectomy-Partial, Pacemaker, Thyroidectomy, Other (MASS REMOVED FROM THYROID) Amputation: No Fractures: No - Social History Smoking Status: Former smoker Tobacco Type: cigarettes # Packs/Day (cigarettes): 1 #Yrs smoked (if former smoker): 30 Alcohol Intake: never Alcohol Intake Frequency:: other Substance Use Type: denies use Occupational Status: retired Housing: house Household Members: spouse Family Hx:: Cancer, Heart Attack, Hyperlipidemia, Hypertension ROS Obtained: Yes All systems reviewed & no additional complaints, Yes Systems reviewed as appropriate & no additional complaints - Constitutional Constitutional: Reports system reviewed and no additional complaints, except as docu, Reports as per HPI - Cardiovascular Cardiovascular: Reports system reviewed and no additional complaints, except as docu, Reports as per HPI, Reports chest pain at rest Physical Exam - General General appearance: alert, other (Patient seems to still be having some pain and rates her pain 5 on a scale of 10 but she is not diaphoretic) - Head Head exam: atraumatic - Eye Eye exam: Present: normal appearance - ENT ENT exam: Present: normal exam - Neck Neck exam: Present: normal inspection - Chest Chest inspection: Present: normal inspection - Respiratory Respiratory exam: Present: normal lung sounds bilaterally - Cardiovascular Cardiovascular exam: Present: regular rate, normal rhythm - Abdominal Exam Abdominal exam: Present: soft - Neurological Exam Neurological exam: Present: alert, oriented X3
[2018-12-26 20:00] LABS: Anion Gap 13.7 mEq/L (5-15); Blood Urea Nitrogen 22 mg/dL (7-18); Calcium 8.7 mg/dL (8.5-10.1); Carbon Dioxide 26 mmol/L (21.0-32.0); Chloride 104 mmol/L (98-107); Glucose 108 mg/dL (74-106); Sodium 139 mmol/L (136-145)
--- NOTE | 2018-12-27 07:23 | H&P/Discharge Summary ---
General - General Admission date:: 12/26/18 Discharge date: 12/27/18 *Admission Date: 12/26/18 *Chief complaint: Chest discomfort *History of present illness: 83-year-old white female, subjected to left heart cath and stent placement 2 weeks ago who has been feeling fine it was actually in the cardiology clinic on the morning of admission and had a good checkup and denied chest pain. She went home and around 4:00 the afternoon of admission began to have some chest pressure and some feelings of vague symptoms of discomfort underneath both breasts. She came back to the emergency department and given her factors of recent heart cath she was admitted to hospital for overnight observation. This morning she feels much better and has no complaints. [facility] History I have reviewed the patient's past medical history: Yes Medical History: Reports:: Congestive Heart Failure, Chronic Obstructive Pulmonary Disease (COPD), Coronary Artery Disease, Hyperlipidemia, Hypertension, Internal Pacemaker, Myocardial Infarction Denies:: Cancer, Diabetes Mellitus Type 1, Diabetes Mellitus Type 2 *Have you ever received a pneumonia vaccine?: Yes *Have you received a flu vaccine this season?: Yes Other Medical History: Reports: Anemia, Hypothyroidism, Thyroid Disease Other Surgeries: Yes: Cardiac Catheterization, Cholecystectomy, Colonoscopy, Coronary Stent, Hysterectomy-Total, Hysterectomy-Partial, Pacemaker, Thyroidectomy, Other (MASS REMOVED FROM THYROID) Amputation: No Fractures: No - *Social History Educational Level: Completed High School Smoking Status: Former smoker Tobacco Type: cigarettes # Packs/Day (cigarettes): 1 #Yrs smoked (if former smoker): 30 Alcohol Intake: never Alcohol Intake Frequency:: other Substance Use Type: denies use *Occupational Status:: retired Housing: house Household Members: spouse *Travel in the last 8 weeks: None Family Hx:: Bleeding Disorder, Cancer, Coronary Artery Disease, Heart Attack, Hypertension Review of Systems - Review of Systems Review of systems:: pertinent systems reviewed and negative unless documented below - Constitutional Denies anorexia, Denies body ache(s) - Eyes Denies blurry vision - ENT Denies abnormal hearing, Denies bleeding gums - *Cardiovascular Denies chest pain, Denies shortness of breath with activity, Denies irregular heart rhythm - *Respiratory Denies change in phlegm color, Denies chest congestion - *Gastrointestinal Denies abdominal pain Exam Vital signs and Labs for Last 24 Hours: Temp Pulse Resp BP Pulse Ox 98.2 F 50 L 18 120/50 L 95 12/27/18 04:00 12/27/18 04:00 12/27/18 04:00 12/27/18 04:00 12/27/18 00:00 Laboratory Results - last 24 hr 12/26/18 19:00: WBC 5.9, RBC 3.33 L, Hgb 10.0 L, Hct 34.7 L, MCV 104.4 H, MCH 30.0, MCHC 28.8 L, RDW 15.4, Plt Count 195, MPV 7.3 L, Neut % (Auto) 59.2, Lymph % (Auto) 30.2, [place] % (Auto) 6.0, Eos % (Auto) 4.0, Baso % (Auto) 0.6, Neut # (Auto) 3.5, Lymph # (Auto) 1.8, [place] # (Auto) 0.4, Eos # (Auto) 0.2, Baso # (Auto) 0.0 12/26/18 19:00: Sodium 139, Potassium 4.7, Chloride 104, Carbon Dioxide 26, Anion Gap 13.7, BUN 22 H, Creatinine 1.00, Estimated Creat Clear 50, Estimated GFR 53 L, Est GFR ( Amer) 64, Glucose 108 H, Calcium 8.7, Troponin I < 0.02 12/26/18 19:00: B-Natriuretic Peptide 215 H 12/26/18 23:40: Troponin I < 0.02 12/27/18 06:08: POC Glucose 100 I & O for Last 24 hours: Intake & Output 12/24/18 12/25/18 12/26/18 12/27/18 11:59 11:59 11:59 11:59 Intake Total 1240 / 1240 Balance 1240 / 1240 Weight 154 lb Narrative: Patient is pleasant, talkative, alert, oriented x3. ENT exam clear. Heart rate regular without murmurs. Anterior lung fernando are clear. Abdomen soft nontender. No edema or clubbing. Neurologic exam intact. Hospital Course Hospital Course: Patient was admitted overnight. Ruled out for AL. Patient seems to have had some type of chest wall discomfort or muscle strain issues. She is able to move around the room and use the restroom without problems. I will have cardiology see her to assess follow-up but she can be safely discharged home with low risk for further incident given her recent heart cath. Results Labs on day of discharge: Labs from last 24 hours 12/27/18 12/26/18 12/26/18 06:08 23:40 19:00 WBC RBC Hgb Hct MCV MCH MCHC RDW Plt Count MPV Neut % (Auto) Lymph % (Auto) [place] % (Auto) Eos % (Auto) Baso % (Auto) Neut # (Auto) Lymph # (Auto) [place] # (Auto) Eos # (Auto) Baso # (Auto) Sodium Potassium Chloride Carbon Dioxide Anion Gap BUN Creatinine Estimated Creat Clear Estimated GFR Est GFR ( Amer) Glucose POC Glucose 100 Calcium Troponin I < 0.02 B-Natriuretic Peptide 215 H 12/26/18 12/26/18 19:00 19:00 WBC 5.9 RBC 3.33 L Hgb 10.0 L Hct 34.7 L MCV 104.4 H MCH 30.0 MCHC 28.8 L RDW 15.4 Plt Count 195 MPV 7.3 L Neut % (Auto) 59.2 Lymph % (Auto) 30.2 [place] % (Auto) 6.0 Eos % (Auto) 4.0 Baso % (Auto) 0.6 Neut # (Auto) 3.5 Lymph # (Auto) 1.8 [place] # (Auto) 0.4 Eos # (Auto) 0.2 Baso # (Auto) 0.0 Sodium 139 Potassium 4.7 Chloride 104 Carbon Dioxide 26 Anion Gap 13.7 BUN 22 H Creatinine 1.00 Estimated Creat Clear 50 Estimated GFR 53 L Est GFR ( Amer) 64 Glucose 108 H POC Glucose Calcium 8.7 Troponin I < 0.02 B-Natriuretic Peptide DS: Diagnosis - Discharge Diagnosis (1) Atypical chest pain Status: Acute Discharge Plan - Patient Discharge Instructions ACTIVITY: Continue current activity DIET: continue same diet Patient Instructions: Urinary Tract Infection, Heart Failure, Angina, DI for Heart Failure, DI for Angina, DI for Urinary Tract Infection (UTI) - Follow up Plan Follow up with: Benji Paige MD [Staff Physician] - Disposition: Home, Self-Skilled Nursing Medications: Home Medications Medication Instructions Recorded Confirmed Type Aspirin [Aspir 81] 81 mg PO DAILY 03/29/17 12/26/18 History Metformin HCl [Glucophage 500mg 500 mg PO BID 03/29/17 12/26/18 History Tablet] [place]-3 Fatty Acids/Fish Oil [Fish 1 each PO DAILY 03/29/17 12/26/18 History Oil 1,000 mg Capsule] PARoxetine HCl [Paxil] 20 mg PO HS 03/29/17 12/26/18 History Simvastatin 40 mg PO HS 03/29/17 12/26/18 History chlordiazepoxide 25 mg capsule 25 mg PO BID cap 04/24/17 12/26/18 History doxazosin 2 mg tablet 4 mg PO HS tab 04/24/17 12/26/18 History Ferrous Gluconate [Ferrous 324 mg PO DAILY 06/10/17 12/26/18 History Gluconate 324mg Tab] pantoprazole 40 mg tablet,delayed 40 mg PO DAILY #90 tab 07/27/17 12/26/18 Rx release Carvedilol [Carvedilol 6.25mg Tab] 6.25 mg PO BID 08/02/18 12/26/18 History Spironolactone [Spironolactone 25 mg PO DAILY 08/03/18 12/26/18 History 25mg Tablet] tolterodine 2 mg tablet 2 mg PO BID #60 tab 08/14/18 12/26/18 Rx levothyroxine 100 mcg tablet 100 mcg PO DAILY tab 10/11/18 12/26/18 History clopidogrel 75 mg tablet 75 mg PO DAILY #30 tab 11/13/18 12/26/18 Rx Lisinopril [Lisinopril 5mg 10 mg PO DAILY 12/26/18 12/26/18 History Tablet] Multivit,Calc,Mins/Iron/Folic 1 each PO DAILY 12/26/18 12/26/18 History [Women's Daily Caplet] Prescriptions/Medication Reconciliation: Continued doxazosin 2 mg tablet 4 mg PO HS tab pantoprazole 40 mg tablet,delayed release 40 mg PO DAILY #90 tab chlordiazepoxide 25 mg capsule 25 mg PO BID cap tolterodine 2 mg tablet 2 mg PO BID #60 tab levothyroxine 100 mcg tablet 100 mcg PO DAILY tab clopidogrel 75 mg tablet 75 mg PO DAILY #30 tab Metformin HCl [Glucophage 500mg Tablet] 500 mg PO BID Simvastatin 40 mg PO HS PARoxetine HCl [Paxil] 20 mg PO HS [place]-3 Fatty Acids/Fish Oil [Fish Oil 1,000 mg Capsule] 1 each PO DAILY Aspirin [Aspir 81] 81 mg PO DAILY Carvedilol [Carvedilol 6.25mg Tab] 6.25 mg PO BID Spironolactone [Spironolactone 25mg Tablet] 25 mg PO DAILY Lisinopril [Lisinopril 5mg Tablet] 10 mg PO DAILY Multivit,Calc,Mins/Iron/Folic [Women's Daily Caplet] 1 each PO DAILY Ferrous Gluconate [Ferrous Gluconate 324mg Tab] 324 mg PO DAILY - Problem Reconciliation Problems Reviewed?: Yes
--- NOTE | 2018-12-27 07:27 | Consult Report ---
History of Present Illness Consult date: 12/27/18 Requesting physician: Joe Newton Consult reason: chest pain Chief complaint: chest pain Additional Medical History:: History of Present Illness 1. Coronary artery disease, followed by Dr. Marta Verdugo. History of coronary artery stenting approximately 4 or 5 years ago, Dr. Derek Tello [facility], 02/2015, mid LAD stenosis C. NIMCO to LAD and Diagonal arteries, 04/2015, [facility], Dr. Royal Solis NIMCO to RCA and PDA, 11/2018 2. Hypertension treated for more than 10 years. A. Echo from 11.29.18 shows: 1. Biatrial enlargement, normal left ventricular size, visually estimated ejection fraction 50% with no regional wall motion abnormality, there is abnormal septal motion, diastolic parameters are inconclusive. 2. Mildly enlarged right ventricle with normal contractility. 3. Mild mitral and tricuspid regurgitation. 4. No significant pericardial effusion noted. 3. Hyperlipidemia treated for more than 10 years. 4. Remote tobacco use discontinued 7 years ago. She smoked for more than 40 years. A. 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 has been off therapy since 08/2017. Keytruda was stopped due to weight loss- unclear if cause of weight loss. pt reports good appetite. scans are stable". 05/2018, per Dr. Eden 5. History of cholecystectomy and appendectomy 6. Chronic obstructive pulmonary disease with home oxygen use. Followed by Dr. Haddad. 7. History of thyroidectomy, chronic thyroid supplementation. 8. CKD, stage 4 with Cr 2.2 and GFR 22, 03/19/2015. 9. Complete heart block, 02/2015 A. PPM, placed, 02/2015, then removed due to wound dehiscence, 03/2015, with several days of IV antibiotics (cultures showed only staph epidermidis) B. Right sided PPM placed, 03/2015 10. Cardiomyopathy, LVEF 40% by echo, 2015, 05/2018 A. Recommendation for upgrade to BiV pacemaker refused by patient B. Echo, 11/2018, LVEF 50%, 11/2018 11. Carotid artery stenosis A. CNI, 03/2018, 20-49% ICA stenosis bilaterally History of present illness: 83-year-old white female, subjected to left heart cath and stent placement 2 weeks ago who has been feeling fine it was actually in the cardiology clinic on the morning of admission and had a good checkup and denied chest pain. She went home and around 4:00 the afternoon of admission began to have some chest pressure and some feelings of vague symptoms of discomfort underneath both breasts. She came back to the emergency department and given her factors of recent heart cath she was admitted to hospital for overnight observation. This morning she feels much better and has no complaints. The above per Dr. Newton Symptoms of chest tightness under both breasts improved but did not resolve after NTG SL in EMS. Symptoms resolved several hours later after admission. Feeling fine this AM. Denies any fever, chills, nausea, vomiting or diarrhea. Would like to go home. EKG is A. fib with intermittent ventricular pacing. Troponins normal X 2 after hours of pain. [facility] History Medical History: Reports:: Congestive Heart Failure, Chronic Obstructive Pulmonary Disease (COPD), Coronary Artery Disease, Hyperlipidemia, Hypertension, Internal Pacemaker, Myocardial Infarction Denies:: Cancer, Diabetes Mellitus Type 1, Diabetes Mellitus Type 2 *Have you ever received a pneumonia vaccine?: Yes *Have you received a flu vaccine this season?: Yes Other Medical History: Reports: Anemia, Hypothyroidism, Thyroid Disease Other Surgeries: Yes: Cardiac Catheterization, Cholecystectomy, Colonoscopy, Coronary Stent, Hysterectomy-Total, Hysterectomy-Partial, Pacemaker, Thyroidectomy, Other (MASS REMOVED FROM THYROID) Amputation: No Fractures: No - *Social History Educational Level: Completed High School Smoking Status: Former smoker Tobacco Type: cigarettes # Packs/Day (cigarettes): 1 #Yrs smoked (if former smoker): 30 Alcohol Intake: never Alcohol Intake Frequency:: other Substance Use Type: denies use *Occupational Status:: retired Housing: house Household Members: spouse *Travel in the last 8 weeks: None Family Hx:: Bleeding Disorder, Cancer, Coronary Artery Disease, Heart Attack, Hypertension Meds Home Medications Medication Instructions Recorded Confirmed Type Aspirin [Aspir 81] 81 mg PO DAILY 03/29/17 12/26/18 History Metformin HCl [Glucophage 500mg 500 mg PO BID 03/29/17 12/26/18 History Tablet] [place]-3 Fatty Acids/Fish Oil [Fish 1 each PO DAILY 03/29/17 12/26/18 History Oil 1,000 mg Capsule] PARoxetine HCl [Paxil] 20 mg PO HS 03/29/17 12/26/18 History Simvastatin 40 mg PO HS 03/29/17 12/26/18 History chlordiazepoxide 25 mg capsule 25 mg PO BID cap 04/24/17 12/26/18 History doxazosin 2 mg tablet 4 mg PO HS tab 04/24/17 12/26/18 History Ferrous Gluconate [Ferrous 324 mg PO DAILY 06/10/17 12/26/18 History Gluconate 324mg Tab] pantoprazole 40 mg tablet,delayed 40 mg PO DAILY #90 tab 07/27/17 12/26/18 Rx release Carvedilol [Carvedilol 6.25mg Tab] 6.25 mg PO BID 08/02/18 12/26/18 History Spironolactone [Spironolactone 25 mg PO DAILY 08/03/18 12/26/18 History 25mg Tablet] tolterodine 2 mg tablet 2 mg PO BID #60 tab 08/14/18 12/26/18 Rx levothyroxine 100 mcg tablet 100 mcg PO DAILY tab 10/11/18 12/26/18 History clopidogrel 75 mg tablet 75 mg PO DAILY #30 tab 11/13/18 12/26/18 Rx Lisinopril [Lisinopril 5mg 10 mg PO DAILY 12/26/18 12/26/18 History Tablet] Multivit,Calc,Mins/Iron/Folic 1 each PO DAILY 12/26/18 12/26/18 History [Women's Daily Caplet] Allergies Allergy/AdvReac Type Severity Reaction Status Date / Time Penicillins Allergy Unknown Verified 12/26/18 09:44 morphine AdvReac Severe SHORTNESS Verified 12/26/18 09:44 OF BREATH Review of Systems - *Cardiovascular Reports chest pain, Reports shortness of breath with activity - *Respiratory Reports shortness of breath with activity, Denies cough - *Gastrointestinal Denies abdominal pain, Denies nausea, Denies vomiting - *Genitourinary Denies blood in urine - *Musculoskeletal Reports back pain, Denies joint pain - *Neurologic Denies abnormal hearing Exam Vital signs and Labs for Last 24 Hours: Temp Pulse Resp BP Pulse Ox 98.2 F 50 L 18 120/50 L 95 12/27/18 04:00 12/27/18 04:00 12/27/18 04:00 12/27/18 04:00 12/27/18 00:00 Laboratory Results - last 24 hr 12/26/18 19:00: WBC 5.9, RBC 3.33 L, Hgb 10.0 L, Hct 34.7 L, MCV 104.4 H, MCH 30.0, MCHC 28.8 L, RDW 15.4, Plt Count 195, MPV 7.3 L, Neut % (Auto) 59.2, Lymph % (Auto) 30.2, [place] % (Auto) 6.0, Eos % (Auto) 4.0, Baso % (Auto) 0.6, Neut # (Auto) 3.5, Lymph # (Auto) 1.8, [place] # (Auto) 0.4, Eos # (Auto) 0.2, Baso # (Auto) 0.0 12/26/18 19:00: Sodium 139, Potassium 4.7, Chloride 104, Carbon Dioxide 26, Anion Gap 13.7, BUN 22 H, Creatinine 1.00, Estimated Creat Clear 50, Estimated GFR 53 L, Est GFR ( Amer) 64, Glucose 108 H, Calcium 8.7, Troponin I < 0.02 12/26/18 19:00: B-Natriuretic Peptide 215 H 12/26/18 23:40: Troponin I < 0.02 12/27/18 06:08: POC Glucose 100 I & O for Last 24 hours: Intake & Output 12/24/18 12/25/18 12/26/18 12/27/18 11:59 11:59 11:59 11:59 Intake Total 1240 / 1240 Balance 1240 / 1240 Weight 154 lb - *Routine HEENT Exam Head: Present: normocephalic Eye: Present: EOMI, PERRL ENT: Present: mucous membranes moist - *Routine Neck Exam Present: supple. Absent: JVD, carotid bruit - *Routine Respiratory Exam Present: decreased breath sounds, diminished air movement. Absent: accessory muscle use, rales, rhonchi, wheezes - *Routine Cardiovascular Exam Present: irregular rhythm. Absent: murmur, gallop, rubs - *Routine Abdominal Exam Present: soft. Absent: tenderness, distended, guarding - *Routine Extremities Exam Absent: edema, calf tenderness - *Routine Neurological Exam Present: alert, oriented X3, moving all extremities Assessment and Plan (1) Atypical chest pain Current visit: Yes Status: Acute Category: Medical Code(s): R07.89 - Other chest pain (2) CAD (coronary artery disease) Current visit: No Status: Chronic Qualifiers: Coronary Disease-Associated Artery/Lesion type: [place] artery [place] vs. transplanted heart: [place] heart Associated angina: without angina Qualified Code(s): I25.10 - Atherosclerotic heart disease of [place] coronary artery without angina pectoris Category: Medical Code(s): I25.10 - Atherosclerotic heart disease of [place] coronary artery without angina pectoris (3) COPD (chronic obstructive pulmonary disease) Current visit: No Status: Chronic Qualifiers: COPD type: unspecified COPD Qualified Code(s): J44.9 - Chronic obstructive pulmonary disease, unspecified Category: Medical Code(s): J44.9 - Chronic obstructive pulmonary disease, unspecified - Assessment and plan all Dx Assessment and Plan for all problems:: 1. chest pain without acute EKG abnormalities and cardiac troponins normal x2. No further cardiac work-up recommended at this time. Patient okay for discharge home cardiology standpoint. Continue home medications. 2. Recommend follow-up in our office in 1 week.
[2018-12-27 07:43] LABS: INR 1.01 (0.9-1.1); Prothrombin Time 10.5 seconds (9.4-11.8)
[2018-12-27 07:49] LABS: Basophils % 0.7 % (0.1-2.0); Eosinophils # 0.2 K/mm3 (0.0-0.4); Eosinophils % 3.4 % (0.1-12.0); Hematocrit 34.5 % (37.0-47.0); Hemoglobin 9.9 g/dL (12.2-16.2); Lymphocytes # 1.6 K/mm3 (0.7-4.5); Lymphocytes % 27.5 % (10-50); Mean Corpuscular HGB Conc 28.7 g/dL (31.8-35.4); Mean Corpuscular Volume 106.6 fl (81-99); Mean Platelet Volume 7.4 fl (7.4-10.4); Monocytes # 0.3 K/mm3 (0.1-1.0); Monocytes % 5.5 % (1.7-9.3); Neutrophils # 3.7 K/mm3 (1.8-7.8); Platelet Count 194 K/mm3 (142-424); Red Blood Count 3.24 M/mm3 (4.20-5.40); Red Cell Distribution Width 15.2 % (11.5-17.5); White Blood Count 5.8 K/mm3 (4.8-10.8)
[2018-12-27 07:50] LABS: Albumin Level 3.2 gm/dL (3.4-5.0); Albumin/Globulin Ratio 0.9 (1.1-1.8); Bilirubin,Total 0.2 mg/dL (0.2-1.0); Calcium 8.4 mg/dL (8.5-10.1); Globulin 3.4 gm/dl (1.3-3.2); Total Protein,Serum 6.6 gm/dL (6.4-8.2)
--- NOTE | 2018-12-27 08:10 | Pharmacy Consult Notes ---
[facility] Pharmacy VTE Monitoring - Patient Demographics Admission date: 12/27/18 Report Date: 12/27/18 Time: 08:08 Allergies/Adverse Reactions: Patient Allergies Penicillins Allergy (Unknown, Verified 12/26/18 09:44) morphine Adverse Reaction (Severe, Verified 12/26/18 09:44) SHORTNESS OF BREATH Height: 1.55 m Weight: 69.853 kg Patient Problems: Current Active Problems Atypical chest pain (Acute) Cardiomegaly (Acute) Congestive heart failure (Acute) - VTE Risk Labs: VTE Related Lab Results Hgb 9.9 g/dL (12.2-16.2) L 12/27/18 07:13 Hct 34.5 % (37.0-47.0) L 12/27/18 07:13 Plt Count 194 K/mm3 (142-424) 12/27/18 07:13 PT 10.5 seconds (9.4-11.8) 12/27/18 07:13 INR 1.01 (0.9-1.1) 12/27/18 07:13 BUN 22 mg/dL (7-18) H 12/27/18 07:13 Creatinine 1.17 mg/dL (0.55-1.02) H 12/27/18 07:13 Estimated Creat Clear 42 mL/min (50-200) 12/27/18 07:13 Was VTE Risk Assessment Performed: Yes VTE Score: 8 VTE Risk Level: Moderate Risk Clinical Trial Participant: No - Prophylaxis VTE Prophylaxis Ordered?: Yes Types of VTE Prophylaxis: TEDS Knee High
--- NOTE | 2018-12-27 19:31 | Electrocardiograph Report ---
APPROVED REPORT Exam: Resting ECG HR:35 bpm ECG Measurements Heart Rate 35 AXES WI 214 P 95 QRSd 120 QRS 78 QT 420 T257 QTc 320 <Conclusion> Suspect Pacemaker With PVC'S Abnormal ECG Electronically signed by : Alvarado Diaz, 12/27/2018 19:31:17
== END 2018-12-27 09:37 | disposition home or self-care (01) ==
LOC: 2ND 18:56 → ER 18:56 → 2ND 21:30
PROVIDERS: ADMIT Emergency Medicine; ATTEND Family Medicine
CPT/HCPCS: 36415; 71010; 71045; 80048; 80053; 82962; 83735; 83880; 84484; 85025; 85610; 93005; 94761; 96365; 96375; 99284; G0378

== ENCOUNTER → 2019-09-11 11:16 | Outpatient (CLI) | payer MEDICARE, SELFPAY ==
--- NOTE | 2019-09-11 11:44 | CT_ITS ---
PROCEDURE: CT HEAD/BRAIN WO/W CON CLINICAL INDICATION: DIZZINESS,TIA COMPARISON: No exams were available for comparison TECHNIQUE: IV Contrast: 100ML OPITRAY 320 Axial images obtained. All CT scans at the facility use one or more dose reduction, viz: automated exposure control, ma/kV adjustment per patient size (including targeted exams where dose is matched to indication, i.e. head), or iterative reconstruction technique. FINDINGS: Subcortical and periventricular white matter lucency is noted. There are no enhancing mass lesions present. Ventricles, calvarium, and sinuses are unremarkable. Mastoid air cells are well aerated. There is no hemorrhage IMPRESSION: Supratentorial micro ischemia Dictated by: Faraz Sheffield 09/11/2019 13:19 Electronically signed by Faraz Sheffield in [place] 09/11/2019 13:19
[2019-09-11 12:00] LABS: Blood Urea Nitrogen 22 mg/dl (7-17); Estimated Glomerular Filt Rate 60 ml/min (>60); GFR (African American) 73 ML/MIN (>60)
== END ==
PROVIDERS: Visit Provider Family Medicine
DX: R42 Dizziness and giddiness (principal); G45.9 Transient cerebral ischemic attack, unspecified
CPT/HCPCS: 36415; 70470; 82565; 84520; Q9967

== ENCOUNTER → 2020-02-03 13:40 | Outpatient (CLI) | payer MEDICARE, SELFPAY ==
--- NOTE | 2020-02-03 13:40 | CA_ITS ---
APPROVED REPORT Clinical Director: CT Laterality: Bilateral Indications: bilateral carotid artery stenosis Risk Factors Hypertension: Hyperlipidemia Doppler Spectral Velocity Analysis ECA (R) 151.20/27.90 cm/s ECA (L) 76.40/0.60 cm/s dICA (R) 93.40/16.30 cm/s dICA (L) 98.20/17.70 cm/s Anand (R) 91.50/12.50 cm/s Anand (L) 73.20/14.80 cm/s pICA (R) 84.80/13.50 cm/s pICA (L) 78.30/19.90 cm/s dCCA (R) 70.60/6.40 cm/s dCCA (L) 76.30/0.90 cm/s pCCA (R) 64.20/6.80 cm/s pCCA (L) 88.60/12.20 cm/s Vert (R) 50.90/7.70 cm/s Vert (L) 9.20/4.90 cm/s ICA/CCA 1.30 ICA/CCA 1.30 Findings Duplex evaluation demonstrates stenosis of the right proximal internal carotid artery in the range of 20-49%. Duplex evaluation demonstrates stenosis of the left proximal internal carotid artery in the range of 20-49%. Duplex evaluation demonstrates antegrade flow of the bilateral Vertebral Arteries. Tortuous vessels bilaterally. Difficult exam, suggests further testing. Conclusion Duplex evaluation demonstrates stenosis of the right proximal internal carotid artery in the range of 20-49%. Duplex evaluation demonstrates stenosis of the left proximal internal carotid artery in the range of 20-49%. Duplex evaluation demonstrates antegrade flow of the bilateral Vertebral Arteries. Tortuous vessels bilaterally. Difficult exam, suggests further testing if symptoms warrant. Electronically signed by : Rudi Stroud MD 02/03/2020 17:07:55
== END ==
PROVIDERS: PCP Family Medicine; Visit Provider Nurse Practitioner Family
DX: I65.23 Occlusion and stenosis of bilateral carotid arteries (principal)
CPT/HCPCS: 93880

== ENCOUNTER 2021-01-15 09:46 | Day surgery (SDC) | payer MEDICARE, SELFPAY ==
--- NOTE | 2021-01-15 | IR_ITS ---
APPROVED REPORT Patient Location: Outpatient Seconds Handler: MOODY Romero RT (R) PROCEDURES Pocket Revision Removal of old Pacemaker Implant of Permanent Pacemaker INDICATION Recall of Murray Generator Informed consent was obtained prior to the procedure. COMPLICATIONS NONE Estimated Blood Loss: LESS THAN 10 ML TECHNIQUE 1% lidocaine with epinephrine used to anesthetize the left anterior aspect of the chest. Scalpel was used to make the initial cutaneous incision and then used to dissect down to the existing pacemaker generator. The generator was removed from the existing pocket. Digital manipulation was required along with intermittent usage of scalpel in order to revise the pocket. The leads were removed from the old generator. The new generator was screwed to the existing leads and secured into place. Electronic interrogation proved acceptable thresholds and voltage within the lead. Antibiotics were used to flush the pocket and the pacemaker was secured using 3-0 silk into the newly revised pocket. Monocryl was used to close the subcutaneous tissue and then connor were placed on the cutaneous area in order to approximate the incision. Patient was transferred to the postop holding area in stable condition. INTERROGATION Generator Model number: [employer] MRI DR IS-1 L311 Generator Serial number: [id number] Atrial lead model number: 2088TC Atrial lead serial number: [id number] P-wave: 0.6MV Impedence: 554 Ohlms Threshold: 1.2V @1.0 ms Right Ventricular lead model number: 2088TC Right Ventricular lead serial number: [id number] R-wave: Imped[place]: Threshold: Pacing Parameters: Mode: VDDR Base/Max Track: 60 /130 PPM No diaphragmatic stimulation at 10 volts. IMPRESSION Successful Pocket Revision Successful Removal of old Pacemaker Successful Implant of Permanent Pacemaker PLAN 1. post op wound care Electronically signed by : Benji Paige MD 01/28/2021 09:49:03
[2021-01-15 09:51] VITALS: BP 161/82; PULSE 71; RESP 16; TEMP 36.8; O2SAT 94; BMI 27.6
[2021-01-15 10:22] LABS: Coronavirus 19, PCR Not Detected (NotDetected); Influenza A, PCR Not Detected (NotDetected); Influenza B, PCR Not Detected (NotDetected)
[2021-01-15 10:24] LABS: Basophils # 0.1 K/mm3 (0-0.2); Basophils % 0.8 % (0.1-2.0); Eosinophils # 0.4 K/mm3 (0.0-0.4); Eosinophils % 4.8 % (0.1-12.0); Hematocrit 37.5 % (37.0-47.0); Hemoglobin 11.9 g/dL (12.2-16.2); Lymphocytes # 2.1 K/mm3 (0.7-4.5); Lymphocytes % 26.8 % (10-50); Mean Corpuscular HGB Conc 31.6 g/dL (31.8-35.4); Mean Corpuscular Hemoglobin 32.2 pg (27.0-31.2); Mean Corpuscular Volume 101.8 fl (81-99); Monocytes # 0.4 K/mm3 (0.1-1.0); Monocytes % 4.5 % (1.7-9.3); Neutrophils % 63.1 % (37.0-80.0); Platelet Count 235 K/mm3 (142-424); Red Blood Count 3.69 M/mm3 (4.20-5.40); Red Cell Distribution Width 13.9 % (11.5-17.5); White Blood Count 7.9 K/mm3 (4.8-10.8)
[2021-01-15 10:26] VITALS: PULSE 79
[2021-01-15 10:35] LABS: Anion Gap 13.6 mEq/L (5-15); Blood Urea Nitrogen 12 mg/dl (7-17); Calcium 9.3 mg/dl (8.4-10.2); Carbon Dioxide 33 mmol/L (22.0-30.0); Chloride 99 mmol/L (98-107); Creatinine Clearance Estimated 45 mL/min (50-200); Estimated Glomerular Filt Rate 95 ml/min (>60); GFR (African American) 116 ML/MIN (>60); Glucose 109 mg/dl (74-100); Potassium 4.6 mmoL/L (3.5-5.1); Sodium 141 mmol/L (136-145)
[2021-01-15 13:25] VITALS: BP 147/45; PULSE 48; RESP 16; O2SAT 99
[2021-01-15 13:35] VITALS: BP 161/82; PULSE 48; PULSE 73; RESP 16; O2SAT 99
[2021-01-15 13:40] VITALS: BP 147/45; PULSE 67; RESP 18; O2SAT 99
[2021-01-15 14:07] VITALS: BP 174/74; PULSE 84; RESP 18; O2SAT 96
--- NOTE | 2021-01-15 14:09 | P.PN_ITS ---
[facility] Anesthesia Checklist - Patient Identification Patient Identification: Arm Band - Structural Data Admitted From: Home Planned Operative Procedure/s: Pacemaker Generator Change Consent for Planned Operative Procedure(s) Verified: Yes Verified Documents: Surgical Consent, History and Physical - NPO Status Verified Time NPO: 00:00 - Additional verifications Anesthesia Reactions: No - Airway Assessment C-Spine Mobility Assessed: Yes (mp3) TMJ Mobility Assessed: Yes Dentition: Dentures-good fit - Neurological Assessment Level of Consciousness: Awake, Alert - Anesthesia Plan Anesthesia Risk discussed: Yes Anesthesia Plan: Verified ASA Class: III Anesthesia Type: MAC [facility] History I have reviewed the patient's past medical history: Yes Medical History: Reports:: Congestive Heart Failure, Chronic Obstructive Pulmonary Disease (COPD), Coronary Artery Disease, Diabetes Mellitus Type 2, Hyperlipidemia, Hypertension, Internal Pacemaker, Myocardial Infarction Denies:: Cancer, Diabetes Mellitus Type 1, Seizures *Have you ever received a pneumonia vaccine?: No *Have you received a flu vaccine this season?: No Other Medical History: Reports: Anemia, Hypothyroidism, Thyroid Disease Anesthesia experience/problems:: nac Other Surgeries: Yes: Cardiac Catheterization, Cholecystectomy, Colonoscopy, Coronary Stent, Hysterectomy-Total, Hysterectomy-Partial, Pacemaker, Thyroidectomy, Other (MASS REMOVED FROM THYROID) Amputation: No Fractures: No - *Social History Last grade of school completed: 11th or 12th Smoking Status: Former smoker Tobacco Type: cigarettes # Packs/Day (cigarettes): 1 #Yrs smoked (if former smoker): 30 Alcohol Intake: never Alcohol Intake Frequency:: other Substance Use Type: denies use *Occupational Status:: retired Housing: house Household Members: spouse *Travel in the last 8 weeks: None Family Hx:: Bleeding Disorder, Cancer, Coronary Artery Disease, Heart Attack, Hypertension
== END 2021-01-15 14:20 | disposition home or self-care (01) ==
LOC: CATHLAB 09:48
PROVIDERS: PCP Family Medicine; Visit Provider Internal Medicine
DX: T82.111A Breakdown (mechanical) of cardiac pulse generator (battery), initial encounter (principal); Y83.1 Surgical operation with implant of artificial internal device as the cause of abnormal reaction of the patient, or of later complication, without mention of misadventure at the time of the procedure; I44.2 Atrioventricular block, complete
CPT/HCPCS: 33228; 80048; 85025; C1785; C9803; J2405; U0003; U0005

== ENCOUNTER → 2021-02-08 09:20 | Outpatient (CLI) | payer MEDICARE, SELFPAY ==
--- NOTE | 2021-02-08 | CA_ITS ---
APPROVED REPORT Delivery Table Operator: Nga Galindo RVT Laterality: Bilateral Study Quality: Adequate Indications: CARRINGTON Risk Factors Hypertension: Hyperlipidemia Diabetes Doppler Spectral Velocity Analysis ECA (R) 80.00/2.40 cm/s ECA (L) 114.10/0.00 cm/s dICA (R) 157.40/25.10 cm/s dICA (L) 186.90/30.60 cm/s Anand (R) 104.80/10.70 cm/s Anand (L) 152.90/24.70 cm/s pICA (R) 111.20/13.90 cm/s pICA (L) 107.00/21.20 cm/s dCCA (R) 85.50/9.60 cm/s dCCA (L) 89.40/9.40 cm/s pCCA (R) 83.40/11.80 cm/s pCCA (L) 92.90/10.60 cm/s Vert (R) 83.50/15.30 cm/s Vert (L) 36.70/7.50 cm/s ICA/CCA 1.84 ICA/CCA 2.09 Findings Study suggests 50-69% stenosis of the right internal cartoid artery. Study suggests 50-69% stenosis of the left internal cartoid artery. Antegrade flow seen bilateral vertebral arteries. Conclusion Study suggests 50-69% stenosis of the right internal cartoid artery. Study suggests 50-69% stenosis of the left internal cartoid artery. Antegrade flow seen bilateral vertebral arteries. Electronically signed by : Rudi Stroud MD 02/08/2021 11:30:37
== END ==
PROVIDERS: PCP Family Medicine; Visit Provider Nurse Practitioner Family
DX: I65.23 Occlusion and stenosis of bilateral carotid arteries (principal); I25.10 Atherosclerotic heart disease of native coronary artery without angina pectoris
CPT/HCPCS: 93306; 93880

== ENCOUNTER → 2021-05-26 09:57 | Outpatient (CLI) | payer MEDICARE, SELFPAY ==
--- NOTE | 2021-05-26 | ECG_ITS ---
APPROVED REPORT Exam: Resting ECG HR:84 bpm ECG Measurements Heart Rate 84 AXES UT 213 P -61 QRSd 185 QRS -71 QT 419 T 109 QTc 459 Conclusion ELECTRONIC VENTRICULAR PACEMAKER ABNORMAL RHYTHM ECG UNCONFIRMED REPORT Electronically signed by : Joe Newton MD 05/26/2021 17:49:33
[2021-05-26 10:30] LABS: Basophils # 0.1 K/mm3 (0-0.2); Basophils % 0.9 % (0.1-2.0); Eosinophils # 0.2 K/mm3 (0.0-0.4); Eosinophils % 2.5 % (0.1-12.0); Hematocrit 34.9 % (37.0-47.0); Hemoglobin 10.7 g/dL (12.2-16.2); Lymphocytes # 1.6 K/mm3 (0.7-4.5); Lymphocytes % 17.1 % (10-50); Mean Corpuscular HGB Conc 30.5 g/dL (31.8-35.4); Mean Corpuscular Hemoglobin 31.1 pg (27.0-31.2); Mean Corpuscular Volume 101.9 fl (81-99); Mean Platelet Volume 7.9 fl (7.4-10.4); Monocytes # 0.5 K/mm3 (0.1-1.0); Monocytes % 5.3 % (1.7-9.3); Neutrophils # 6.7 K/mm3 (1.8-7.8); Neutrophils % 74.1 % (37.0-80.0); Platelet Count 280 K/mm3 (142-424); Red Blood Count 3.43 M/mm3 (4.20-5.40); Red Cell Distribution Width 14.2 % (11.5-17.5); White Blood Count 9.1 K/mm3 (4.8-10.8)
== END ==
PROVIDERS: PCP Family Medicine; Visit Provider Family Medicine
DX: R53.1 Weakness (principal)
CPT/HCPCS: 36415; 85025; 93005

== ENCOUNTER 2021-06-09 14:35 | Observation (INO) | payer MEDICARE, SELFPAY ==
[2021-06-09] VITALS (10 sets, daily range): BP systolic 127–154; BP diastolic 63–76; PULSE 68–94; RESP 16–22; TEMP 36.8–37.2; O2SAT 91–97; BMI 23.9
[2021-06-09 14:40] LABS: Basophils # 0.1 K/mm3 (0-0.2); Basophils % 0.7 % (0.1-2.0); Eosinophils # 0.2 K/mm3 (0.0-0.4); Eosinophils % 3.2 % (0.1-12.0); Hematocrit 32.2 % (37.0-47.0); Hemoglobin 9.9 g/dL (12.2-16.2); Lymphocytes # 1.4 K/mm3 (0.7-4.5); Lymphocytes % 19.2 % (10-50); Mean Corpuscular HGB Conc 30.7 g/dL (31.8-35.4); Mean Corpuscular Hemoglobin 30.9 pg (27.0-31.2); Mean Corpuscular Volume 100.7 fl (81-99); Mean Platelet Volume 7.7 fl (7.4-10.4); Monocytes # 0.4 K/mm3 (0.1-1.0); Monocytes % 5.8 % (1.7-9.3); Neutrophils % 71.1 % (37.0-80.0); Platelet Count 259 K/mm3 (142-424); Red Blood Count 3.19 M/mm3 (4.20-5.40); Red Cell Distribution Width 14.6 % (11.5-17.5)
[2021-06-09 14:59] LABS: Troponin I 0.02 ng/ml (0.00-0.034)
[2021-06-09 15:20] LABS: Coronavirus 19, PCR Not Detected (NotDetected); Influenza A, PCR Not Detected (NotDetected); Influenza B, PCR Not Detected (NotDetected)
[2021-06-09 15:42] LABS: Alanine Aminotransferase 12 U/L (12-78); Albumin Level 3.3 g/dl (3.5-5.0); Alkaline Phosphatase 97 U/L (38-126); Anion Gap 9.3 mEq/L (5-15); Aspartate Amino Transferase 25 U/L (14-36); Bilirubin,Direct 0.1 mg/dl (0.0-0.4); Bilirubin,Indirect 0.1 mg/dL (0.0-0.9); Bilirubin,Total 0.2 mg/dl (0.2-1.3); Blood Urea Nitrogen 20 mg/dl (7-17); Calcium 8.6 mg/dl (8.4-10.2); Carbon Dioxide 36 mmol/L (22.0-30.0); Chloride 98 mmol/L (98-107); Chol/HDL Ratio 2.5 (1-3.5); Cholesterol 103 mg/dl (140-200); Creatinine Clearance Estimated 40 mL/min (50-200); Estimated Glomerular Filt Rate 80 ml/min (>60); GFR (African American) 97 ML/MIN (>60); Glucose 98 mg/dl (74-100); HDL Cholesterol 42 mg/dl (40-60); Potassium 4.3 mmoL/L (3.5-5.1); Sodium 139 mmol/L (136-145); Triglycerides 87 mg/dl (30-150); VLDL Cholesterol 17 mg/dL (0-40)
[2021-06-09 15:54] LABS: Direct LDL Cholesterol 35.12 mg/dL (100-129)
[2021-06-09 16:00] LABS: Free T4 (Free Thyroxine) 1.74 ng/dl (0.78-2.19)
[2021-06-09 16:12] LABS: Thyroid Stimulating Hormone 0.23 uIU/mL (0.465-4.68)
--- NOTE | 2021-06-09 16:26 | HMH.PNCARD ---
<Barby Hale - Last Filed: 06/09/21 16:26> Subjective Date: 06/09/21 Time: 16:26 Interval history: patient was seen in cardiology clinic today. Admitted for unstable angina and plans for left cardiac catheterization in the morning. Exam Vital signs and Labs for Last 24 Hours: Temp Pulse Resp BP Pulse Ox 98.9 F 80 16 154/68 H 93 L 06/09/21 15:02 06/09/21 15:02 06/09/21 15:02 06/09/21 15:02 06/09/21 15:02 Laboratory Results - last 24 hr 06/09/21 14:10: WBC 7.0, RBC 3.19 L, Hgb 9.9 L, Hct 32.2 L, MCV 100.7 H, MCH 30.9, MCHC 30.7 L, RDW 14.6, Plt Count 259, MPV 7.7, Neut % (Auto) 71.1, Lymph % (Auto) 19.2, [place] % (Auto) 5.8, Eos % (Auto) 3.2, Baso % (Auto) 0.7, Neut # (Auto) 5.0, Lymph # (Auto) 1.4, [place] # (Auto) 0.4, Eos # (Auto) 0.2, Baso # (Auto) 0.1 06/09/21 14:10: Sodium 139, Potassium 4.3, Chloride 98, Carbon Dioxide 36 H, Anion Gap 9.3, BUN 20 H, Creatinine 0.70, Estimated Creat Clear 40, Estimated GFR 80, Est GFR ( Amer) 97, Glucose 98, Calcium 8.6, Total Bilirubin 0.2, Direct Bilirubin 0.1, Conjugated Bilirubin 0.0, Indirect Bilirubin 0.1, Unconjugated Bilirubin 0.0, AST 25, ALT 12, Alkaline Phosphatase 97, Total Protein 6.0 L, Albumin 3.3 L, Triglycerides 87, Cholesterol 103 L, LDL Cholesterol Direct 35.12 L, VLDL Cholesterol 17, HDL Cholesterol 42, Cholesterol/HDL Ratio 2.5, TSH 0.23 L 06/09/21 14:10: Free T4 1.74 06/09/21 14:10: Troponin I 0.02 I & O for Last 24 hours: Intake & Output 06/06/21 06/07/21 06/08/21 06/09/21 23:59 23:59 23:59 23:59 Weight 131 lb Progress Note: A&P Assessment and Plan for All Diagnoses:: Here for 6 mo fu CAD/HTN/HLD/CARRINGTON/PPM She is in a wheelchair today Says chest is feeling heavy, as per HPI. SOB with activity. improves with rest she states she has not felt well the last three days. today is significantly worse with sudden onset of angina today. CAD is present and likely stable. NIMCO in 11/2018. DAPT with ASA and Plavix. HTN-BP acceptable. Pt wt down 3 lbs CARRINGTON is present, bilateral ICA's are 50-69% (JAN 2021) due JULY 2021 HLD-LDL goal is < 55, LDL is not on file. Statin therapy. Managed by PCP. DM is present, controlled per PCP. COPD is present. PPM in no events, a-fib is <1%. APR 2021. 7 years battery. Systolic CHF-EF 20% Low EF on her recent echo. Will try to maximize her GDMT for 3 months before consideration of upgrade to BiV AICD. States she has been feeling bad for 3 days with angina today. Offered admission to hospital for typical/unstable angina. Admit for USA CXR full labs Echo to re-evaluate LV function restart meds Left cardiac catheterization in the morning. Will plan to proceed with LHC with right radial access. The patient has been educated on the risks and benefits of proceeding with LHC with right radial access. The patient has verbalized understanding and is agreeable in proceeding with the procedure. [facility] Pre-cath Criteria Clinical evaluation and indication for coronary angiography: know CAD, new onset angina <= 2 months, worsening angina, LV dysfunction Patient is describing chest pain symtom as:: typical angina Patient is taking:: beta annie Risks and benefits:: We will plan to proceed with LHC/coronary angiography with right radial access. The patient has been educated on the risks and benefits of proceeding with LHC/coronary angiography with right radial access. The patient verbalized understanding and is agreeable in proceeding with the procedure. SCAI (diagnostic catheter AUC results):: A8 <Benji Paige - Last Filed: 06/09/21 16:39> Exam Vital signs and Labs for Last 24 Hours: Temp Pulse Resp BP Pulse Ox 98.9 F 80 16 154/68 H 93 L 03/23/22 15:02 06/09/21 15:02 06/09/21 15:02 06/09/21 15:02 06/09/21 15:02 Laboratory Results - last 24 hr 06/09/21 14:10: WBC 7.0, RBC 3.19 L, Hgb 9.9 L, Hct 32.2 L, MCV 100.7 H, MCH 30.9, MCHC 30.7 L, RDW 14.6, Plt Count 259, MPV 7.7, Neut % (Auto) 71.1, Lymph % (Auto
--- NOTE | 2021-06-09 17:19 | HMH.HP ---
*Admission Date: 06/09/21 *Chief complaint: Chest heaviness *History of present illness: 85-year-old white female with history of known coronary disease with stent placement in 2019. Also has a history of cardiomyopathy, has a ejection fraction of 20% per cardiology notes on recent echo. Has multiple comorbidities including diabetes, hypertension, frailty, kyphosis, functional decline and a history of lung cancer, stage II non-small cell, treated by Dr. Eden at our oncology clinic with several rounds of Keytruda, most recently in 2019. Patient states that she has been told that this lung cancer is fine. Records are not currently available in the EMR system prior to 2019. She tells me that she went to cardiology clinic for her normal checkup today and reported to them that she had some heaviness in the lower part of her chest and that they were concerned this might be her heart and admitted for left heart cath. She reports that her functional status at home is poor over the past couple of months because of weakness. She denies exertionally associated chest pressure or any pain. She denies palpitations or worsening leg swelling. [facility] History I have reviewed the patient's past medical history: Yes Medical History: Reports:: Cardiomyopathy, Congestive Heart Failure, Chronic Obstructive Pulmonary Disease (COPD), Coronary Artery Disease, Diabetes Mellitus Type 2, Home Oxygen, Hyperlipidemia, Hypertension, Internal Pacemaker, Myocardial Infarction Denies:: Cancer, Diabetes Mellitus Type 1, Seizures *Have you ever received a pneumonia vaccine?: Yes *Have you received a flu vaccine this season?: Yes Other Medical History: Reports: Anemia, Arthritis, Hypothyroidism, Thyroid Disease Other Surgeries: Yes: Cardiac Catheterization, Cholecystectomy, Colonoscopy, Coronary Stent, Hysterectomy-Total, Hysterectomy-Partial, Pacemaker, Thyroidectomy, Other (MASS REMOVED FROM THYROID) Amputation: No Fractures: No - *Social History Last grade of school completed: High school graduate Smoking Status: Former smoker Tobacco Type: cigarettes # Packs/Day (cigarettes): 1 #Yrs smoked (if former smoker): 30 Alcohol Intake: never Alcohol Intake Frequency:: other Substance Use Type: denies use *Occupational Status:: retired Housing: house Household Members: spouse *Travel in the last 8 weeks: None Family Hx:: Bleeding Disorder, Cancer, Coronary Artery Disease, Heart Attack, Hypertension Review of Systems - Review of Systems Review of systems:: pertinent systems reviewed and negative unless documented below Meds Home Medications Medication Instructions Recorded Confirmed Type Aspirin [Aspir 81] 81 mg PO DAILY 03/29/17 06/09/21 History Metformin HCl [Glucophage 500mg 500 mg PO BID 03/29/17 06/09/21 History Tablet] Ideal-3 Fatty Acids/Fish Oil [Fish 1 each PO DAILY 03/29/17 06/09/21 History Oil 1,000 mg Capsule] PARoxetine HCl [Paxil] 20 mg PO HS 03/29/17 06/09/21 History chlordiazepoxide HCl 25 mg capsule 25 mg PO BID cap 04/24/17 06/09/21 History doxazosin 2 mg tablet 4 mg PO HS tab 04/24/17 06/09/21 History pantoprazole 40 mg tablet,delayed 40 mg PO DAILY #90 tab 07/27/17 06/09/21 Rx release carvediloL [Carvedilol 6.25mg Tab] 6.25 mg PO BID 08/02/18 06/09/21 History Spironolactone [Spironolactone 25 mg PO DAILY 08/03/18 06/09/21 History 25mg Tablet] Multivit,Calc,Mins/Iron/Folic 1 each PO DAILY 12/26/18 06/09/21 History [Women's Daily Caplet] ferrous gluconate 324 mg (38 mg 648 mg PO BID tab 10/29/19 06/09/21 History iron) tablet meclizine 12.5 mg tablet 12.5 mg PO TID PRN tab 10/29/19 06/09/21 History clopidogrel 75 mg tablet See Rx Instructions .ROUTE 10/19/20 06/09/21 Rx .COMPLEX #90 tab losartan 25 mg tablet 25 mg PO DAILY #30 tab 02/15/21 06/09/21 Rx tolterodine 2 mg tablet See Rx Instructions .ROUTE 02/22/21 06/09/21 Rx .COMPLEX #180 tab rosuvastatin 20 mg tablet See Rx Instructions .ROUTE 05/20/21 06/09/21 Rx .COMPLE
--- NOTE | 2021-06-09 18:44 | PC.NURSE ---
Unable to complete med rec, pt states she is unable to recall what meds she takes, she will have her bring in her home meds in the morning
--- NOTE | 2021-06-09 21:37 | ECG_ITS ---
APPROVED REPORT Exam: Resting ECG HR:86 bpm ECG Measurements Heart Rate 86 AXES OK 218 P 93 QRSd 194 QRS -74 QT 429 T 97 QTc 472 Conclusion ELECTRONIC VENTRICULAR PACEMAKER ABNORMAL RHYTHM ECG UNCONFIRMED REPORT Electronically signed by : Joe Newton MD 06/11/2021 19:49:05
--- NOTE | 2021-06-09 22:25 | HMH.PHAVTE ---
[facility] Pharmacy VTE Monitoring - Patient Demographics Admission date: 06/09/21 Report Date: 06/09/21 Time: 22:25 Allergies/Adverse Reactions: Patient Allergies Penicillins Allergy (Unknown, Verified 06/09/21 13:26) morphine Adverse Reaction (Severe, Verified 06/09/21 13:26) SHORTNESS OF BREATH Height: 1.57 m Weight: 59.421 kg Patient Problems: Current Active Problems Unstable angina (Acute) Pale (Acute) History of lung cancer (Acute) HHD (hypertensive heart disease) (Chronic) Dyspnea (Chronic) Diastolic dysfunction (Chronic) HTN (hypertension) (Chronic) HLD (hyperlipidemia) (Chronic) CKD (chronic kidney disease) (Chronic) Pacemaker (Chronic) Oxygen dependent (Chronic) CAD (coronary artery disease) (Chronic) CHF (congestive heart failure), NYHA class III (Chronic) Cardiomyopathy (Chronic) - VTE Risk Labs: VTE Related Lab Results Hgb 9.9 g/dL (12.2-16.2) L 06/09/21 14:10 Hct 32.2 % (37.0-47.0) L 06/09/21 14:10 Plt Count 259 K/mm3 (142-424) 06/09/21 14:10 BUN 20 mg/dl (7-17) H 06/09/21 14:10 Creatinine 0.70 mg/dl (0.52-1.04) 06/09/21 14:10 Estimated Creat Clear 40 mL/min (50-200) 06/09/21 14:10 Was VTE Risk Assessment Performed: Yes VTE Score: 10 VTE Risk Level: Moderate Risk Clinical Trial Participant: No - Prophylaxis VTE Prophylaxis Ordered?: Yes Types of VTE Prophylaxis: TEDS Knee High
[2021-06-09 23:13] LABS: Troponin I 0.02 ng/ml (0.00-0.034)
--- NOTE | 2021-06-09 23:29 | PC.NURSE ---
2134: At pts bedside assessing patient at this time, pt states will you help me pt c/o SOB and pressure in ches, pt states pressure feels like somone is sitting on me pt heart rate auscultates and heart rate noted to be 94, increased work of breathing noted. RT notified that EKG will be needed 2136: EKG completed at this time and immediately taken to ER Doctor, Dr Hernandez for evaluation. DR Hernandez states ST Elevation with left bundle branch block and reviewed a previous EKG and states the two EKGs were similiar, but recommended repeat troponin at this time 2154: Dr Paige notified of pts complaints and notified of EKG, EKG sent to MD for reviewing. MD states to give metoprolol 5mg iv push q5mins x 3 doses, push rapidly. hold if systolic bp less than 120 or for heartrate of less than 70. phone order repeated and verified at this time 2204: first dose of metoprolol pused at this time. pt alert and oriented and stating chest pressure is decreasing at this time 0: bp 130/65 hr 69. metoprolol held at this time d/t hr below parameters, RN remains at bedside, pt rates pain 2/10 on pain scale at this time and decreased SOB noted, pt appears comfortable 2215: repeat bp at this time was 146/64 with HR 74, second dose of metoprolol given at this time, pt appears comfortable will continue to monitor 2235: repeat bp at this time was 148/65 with a hr of 69. pt states chest pressure is resolved, lab at bedside colecting troponin at this time, will continue to monitor
[2021-06-10] VITALS (18 sets, daily range): BP systolic 132–161; BP diastolic 47–91; PULSE 55–92; RESP 14–20; TEMP 36.6–37; O2SAT 93–99; BMI 23.9; BMI 23.8
--- NOTE | 2021-06-10 | IR_ITS ---
APPROVED REPORT Patient Location: Inpatient Technical Laboratory Asst: MOODY Garza RT (R) PROCEDURES Left heart catheterization Left ventriculogram Selective coronary angiogram INDICATION Known coronary artery disease, Accelerated angina pectoris/unstable angina Informed consent was obtained prior to the procedure. COMPLICATIONS None Estimated Blood Loss: Less than 10 mls TECHNIQUE One percent lidocaine used to anesthetize the right anterior aspect of the wrist. The right radial artery was accessed via the Seldinger technique. A 6 [place] sheath was placed in the right radial artery. 2.5 mg of verapamil, 800 mcg of nitroglycerin, 1mg Lidocaine and 5000 U Heparin were given through the arterial sheath. The papa catheter was also used to perform left heart catheterization, left ventriculogram and selective coronary angiogram. At the end of the procedure the sheath was removed good hemostasis was achieved using Traclet band, patient was transferred to the postop holding area in stable condition. ANGIOGRAPHIC RESULTS The left main artery Normal The left anterior descending artery Has a stent in the proximal segment which is widely patent free of in-stent restenosis with excellent proximal distal transitioning. There is a large diagonal artery which bifurcates proximally and has a stent originating off the proximal LAD. The diagonal artery stent has mild concentric in-stent restenosis The circumflex artery Is nondominant and has a stent in the mid segment which is widely patent with mild concentric in-stent restenosis with excellent proximal distal transitioning The right coronary artery Is a large dominant vessel and has proximal calcified 10 to 20% stenoses with stents in the distal segment which are widely patent free of in-stent restenosis with excellent proximal and distal transitioning. The distal vessel gives rise to a large posterior descending artery which also has a stent in the proximal segment which is widely patent free of in-stent restenosis with excellent proximal distal transitioning. Large posterior lateral branch is widely patent The OCONNOR ventriculogram reveals Dilated ventricle anterior wall hypokinesis estimated ejection fraction 40 to 45% The left ventricular end-diastolic pressure 15 to 20 mmHg IMPRESSION Widely patent coronary arteries as described above Regional wall motion abnormality with mildly reduced ejection fraction Elevated LVEDP PLAN 1. Continue medical management for coronary artery disease 2. Interrogation of pacemaker to determine the amount of RV pacing. If patient is a candidate consideration for cardiac resynchronization therapy 3. Risk factor modification 4. It is reasonable to evaluate for noncardiac chest pain based on patient's history of lung cancer Center Electronically signed by : Benji Paige MD 06/10/2021 14:33:15
--- NOTE | 2021-06-10 00:50 | PC.NURSE ---
notified in change in heart rhythm, pt is resting comfortably awakens easily, pt denies any chest pain or discomfort at this time, heart rate regular and apically 74, no sob noted will continue to monitor at this time
--- NOTE | 2021-06-10 05:48 | PC.NURSE ---
pt has rested well throughout shift, pt had one episode of chest pain see note, no change from previous assessment, pt has remained npo for heart cath, vss will continue to monitor at this time
[2021-06-10 06:45] LABS: Basophils % 0.6 % (0.1-2.0); Eosinophils # 0.2 K/mm3 (0.0-0.4); Hematocrit 31.2 % (37.0-47.0); Hemoglobin 9.6 g/dL (12.2-16.2); Mean Corpuscular HGB Conc 30.6 g/dL (31.8-35.4); Mean Corpuscular Hemoglobin 30.7 pg (27.0-31.2); Mean Corpuscular Volume 100.3 fl (81-99); Mean Platelet Volume 7.3 fl (7.4-10.4); Monocytes # 0.4 K/mm3 (0.1-1.0); Monocytes % 6.4 % (1.7-9.3); Neutrophils # 4.2 K/mm3 (1.8-7.8); Neutrophils % 72.1 % (37.0-80.0); Platelet Count 250 K/mm3 (142-424); Red Blood Count 3.11 M/mm3 (4.20-5.40); Red Cell Distribution Width 14.6 % (11.5-17.5); White Blood Count 5.8 K/mm3 (4.8-10.8)
[2021-06-10 06:49] LABS: Anion Gap 3.7 mEq/L (5-15); Blood Urea Nitrogen 19 mg/dl (7-17); Calcium 8.2 mg/dl (8.4-10.2); Carbon Dioxide 40 mmol/L (22.0-30.0); Chloride 102 mmol/L (98-107); Creatinine Clearance Estimated 40 mL/min (50-200); Estimated Glomerular Filt Rate 80 ml/min (>60); GFR (African American) 97 ML/MIN (>60); Glucose 103 mg/dl (74-100); Potassium 3.7 mmoL/L (3.5-5.1); Sodium 142 mmol/L (136-145)
--- NOTE | 2021-06-10 07:42 | HMH.PHAINT ---
MEDICATION RECONCILIATION COMPLETED ON PATIENT USING EXTERNAL FILL HISTORY FROM PHARMACY. -FREDA MARSHALL, CECYD
--- NOTE | 2021-06-10 08:07 | HMH.ACPN2 ---
Internal Medicine - PN: Subj *Date: 06/10/21 *Time: 08:07 Interval history: Patient is n.p.o. for heart cath this morning. Patient is unaware that she is going to have a heart cath and does not recall any conversation yesterday in cardiology clinic about the possible procedure. She denies chest pain or pressure to me. She reports that her biggest problem is that she did not rest last night and feels very tired. Exam Vital signs and Labs for Last 24 Hours: Temp Pulse Resp BP Pulse Ox 98.6 F 79 14 144/58 H 99 06/10/21 04:00 06/10/21 04:00 06/10/21 04:00 06/10/21 04:00 06/10/21 04:00 Laboratory Results - last 24 hr 06/09/21 14:10: WBC 7.0, RBC 3.19 L, Hgb 9.9 L, Hct 32.2 L, MCV 100.7 H, MCH 30.9, MCHC 30.7 L, RDW 14.6, Plt Count 259, MPV 7.7, Neut % (Auto) 71.1, Lymph % (Auto) 19.2, [place] % (Auto) 5.8, Eos % (Auto) 3.2, Baso % (Auto) 0.7, Neut # (Auto) 5.0, Lymph # (Auto) 1.4, [place] # (Auto) 0.4, Eos # (Auto) 0.2, Baso # (Auto) 0.1 06/09/21 14:10: Sodium 139, Potassium 4.3, Chloride 98, Carbon Dioxide 36 H, Anion Gap 9.3, BUN 20 H, Creatinine 0.70, Estimated Creat Clear 40, Estimated GFR 80, Est GFR ( Amer) 97, Glucose 98, Calcium 8.6, Total Bilirubin 0.2, Direct Bilirubin 0.1, Conjugated Bilirubin 0.0, Indirect Bilirubin 0.1, Unconjugated Bilirubin 0.0, AST 25, ALT 12, Alkaline Phosphatase 97, Total Protein 6.0 L, Albumin 3.3 L, Triglycerides 87, Cholesterol 103 L, LDL Cholesterol Direct 35.12 L, VLDL Cholesterol 17, HDL Cholesterol 42, Cholesterol/HDL Ratio 2.5, TSH 0.23 L 06/09/21 14:10: Free T4 1.74 06/09/21 14:10: Troponin I 0.02 06/09/21 15:17: SARS-CoV-2 (PCR) Not detected, Influenza A Untype (PCR) Not detected, Influenza Type B (PCR) Not detected 06/09/21 22:30: Troponin I 0.02 06/10/21 06:14: WBC 5.8, RBC 3.11 L, Hgb 9.6 L, Hct 31.2 L, MCV 100.3 H, MCH 30.7, MCHC 30.6 L, RDW 14.6, Plt Count 250, MPV 7.3 L, Neut % (Auto) 72.1, Lymph % (Auto) 18.0, [place] % (Auto) 6.4, Eos % (Auto) 3.0, Baso % (Auto) 0.6, Neut # (Auto) 4.2, Lymph # (Auto) 1.0, [place] # (Auto) 0.4, Eos # (Auto) 0.2, Baso # (Auto) 0.0 06/10/21 06:14: Sodium 142, Potassium 3.7, Chloride 102, Carbon Dioxide 40 H, Anion Gap 3.7 L, BUN 19 H, Creatinine 0.70, Estimated Creat Clear 40, Estimated GFR 80, Est GFR ( Amer) 97, Glucose 103 H, Calcium 8.2 L I & O for Last 24 hours: Intake & Output 06/07/21 06/08/21 06/09/21 06/10/21 11:59 11:59 11:59 11:59 Intake Total 240 / 240 Output Total Balance 239 / 239 Weight 130 lb Narrative: Patient is pleasant, talkative. Oriented. Appears somewhat disgruntled because of her lack of sleep. Her kyphotic posture is noted. Her lungs have good air movement. Heart rate regular. Abdomen soft. No edema. Assessment and Plan (1) Unstable angina Status: Acute Category: Medical Code(s): I20.0 - Unstable angina (2) Pale Status: Acute Category: Medical Code(s): R23.1 - Pallor (3) History of lung cancer Status: Acute Category: Medical Code(s): Z85.118 - Personal history of other malignant neoplasm of bronchus and lung (4) HHD (hypertensive heart disease) Status: Chronic Qualifiers: Heart failure presence: unspecified whether heart failure present Qualified Code(s): I11.9 - Hypertensive heart disease without heart failure Category: Medical Code(s): I11.9 - Hypertensive heart disease without heart failure (5) Dyspnea Status: Chronic Qualifiers: Dyspnea type: dyspnea on exertion Qualified Code(s): R06.00 - Dyspnea, unspecified Category: Medical Code(s): R06.00 - Dyspnea, unspecified (6) Diastolic dysfunction Status: Chronic Category: Medical Code(s): I51.89 - Other ill-defined heart diseases (7) HTN (hypertension) Status: Chronic Qualifiers: Hypertension type: essential hypertension Qualified Code(s): I10 - Essential (primary) hypertension Category: Medical Code(s): I10 - Essential (primary) hypertension
--- NOTE | 2021-06-10 09:34 | HMH.PNCARD ---
Subjective Date: 06/10/21 Time: 09:35 Principal diagnosis: chest pressure/angina, Cardiomyopathy Interval history: 85-year-old white female in bed in no acute distress but anxious regarding the heart catheterization. She is considering not having it but upon further questioning the patient does take anxiety medication and has not had it over the last 24 hours. Patient has been having some chest pressure recently and I discussed her need to perform heart catheterization to evaluate for coronary artery disease. She is in agreement to stay for the procedure. I have restarted her Xanax 0.5 mg twice daily. Exam Vital signs and Labs for Last 24 Hours: Temp Pulse Resp BP Pulse Ox 98.6 F 79 14 144/58 H 99 06/10/21 04:00 06/10/21 04:00 06/10/21 04:00 06/10/21 04:00 06/10/21 04:00 Laboratory Results - last 24 hr 06/09/21 14:10: WBC 7.0, RBC 3.19 L, Hgb 9.9 L, Hct 32.2 L, MCV 100.7 H, MCH 30.9, MCHC 30.7 L, RDW 14.6, Plt Count 259, MPV 7.7, Neut % (Auto) 71.1, Lymph % (Auto) 19.2, Lake % (Auto) 5.8, Eos % (Auto) 3.2, Baso % (Auto) 0.7, Neut # (Auto) 5.0, Lymph # (Auto) 1.4, Lake # (Auto) 0.4, Eos # (Auto) 0.2, Baso # (Auto) 0.1 06/09/21 14:10: Sodium 139, Potassium 4.3, Chloride 98, Carbon Dioxide 36 H, Anion Gap 9.3, BUN 20 H, Creatinine 0.70, Estimated Creat Clear 40, Estimated GFR 80, Est GFR ( Amer) 97, Glucose 98, Calcium 8.6, Total Bilirubin 0.2, Direct Bilirubin 0.1, Conjugated Bilirubin 0.0, Indirect Bilirubin 0.1, Unconjugated Bilirubin 0.0, AST 25, ALT 12, Alkaline Phosphatase 97, Total Protein 6.0 L, Albumin 3.3 L, Triglycerides 87, Cholesterol 103 L, LDL Cholesterol Direct 35.12 L, VLDL Cholesterol 17, HDL Cholesterol 42, Cholesterol/HDL Ratio 2.5, TSH 0.23 L 06/09/21 14:10: Free T4 1.74 06/09/21 14:10: Troponin I 0.02 06/09/21 15:17: SARS-CoV-2 (PCR) Not detected, Influenza A Untype (PCR) Not detected, Influenza Type B (PCR) Not detected 06/09/21 22:30: Troponin I 0.02 06/10/21 06:14: WBC 5.8, RBC 3.11 L, Hgb 9.6 L, Hct 31.2 L, MCV 100.3 H, MCH 30.7, MCHC 30.6 L, RDW 14.6, Plt Count 250, MPV 7.3 L, Neut % (Auto) 72.1, Lymph % (Auto) 18.0, Lake % (Auto) 6.4, Eos % (Auto) 3.0, Baso % (Auto) 0.6, Neut # (Auto) 4.2, Lymph # (Auto) 1.0, Lake # (Auto) 0.4, Eos # (Auto) 0.2, Baso # (Auto) 0.0 06/10/21 06:14: Sodium 142, Potassium 3.7, Chloride 102, Carbon Dioxide 40 H, Anion Gap 3.7 L, BUN 19 H, Creatinine 0.70, Estimated Creat Clear 40, Estimated GFR 80, Est GFR ( Amer) 97, Glucose 103 H, Calcium 8.2 L I & O for Last 24 hours: Intake & Output 06/07/21 06/08/21 06/09/21 06/10/21 11:59 11:59 11:59 11:59 Intake Total 240 / 240 Output Total Balance 239 / 239 Weight 130 lb - *Routine Respiratory Exam Present: CTA bilaterally, diminished air movement - *Routine Cardiovascular Exam Present: RRR - *Routine Extremities Exam Absent: cyanosis, clubbing, edema Progress Note: A&P (1) Unstable angina Status: Acute (2) Pale Status: Acute (3) History of lung cancer Status: Acute (4) HHD (hypertensive heart disease) Status: Chronic (5) Dyspnea Status: Chronic (6) Diastolic dysfunction Status: Chronic (7) HTN (hypertension) Status: Chronic (8) HLD (hyperlipidemia) Status: Chronic (9) CKD (chronic kidney disease) Status: Chronic (10) Pacemaker Status: Chronic (11) Oxygen dependent Status: Chronic (12) CAD (coronary artery disease) Status: Chronic (13) CHF (congestive heart failure), NYHA class III Status: Chronic (14) Cardiomyopathy Status: Chronic Assessment and Plan for All Diagnoses:: Plan to proceed with left heart catheterization to rule out coronary artery disease as a cause for the patient's cardiomyopathy. Echocardiogram performed this admission. Preliminary reading shows ejection fraction of 25-30% which has not improved on goal-directed medical therapy over the last 3 months. We had previously discussed up
--- NOTE | 2021-06-10 16:32 | CA_ITS ---
APPROVED REPORT EXAM: Comprehensive 2D, Doppler, and color-flow Echocardiogram [employer]: Holli Garcia CRT Ht: 5 ft 1 in Wt: 130lbs BSA: 1.57 BP: 155/68 mmHg Indications: Congestive Heart Failure, Shortness of Breath, Diabetes, CAD, Hyperlipidemia, Cardiomyopathy, Hypertension/HDD, lung CA, COPD, home O2, old MO, stent, pacer 2D Dimensions LVOT 1.96 cm (M/F) 1.5-2.5 LA Volume 66.90 mL LA Volume Index 42.60 mL/m2 (M/F) 16-34 M-Mode Dimensions RVDd 2.96 cm (0.9-2.6) LA Diam 4.67 cm (1.9-4.0) LVDd 5.59 cm (3.5-5.7) Ao Diam 3.74 cm (2.0-3.7) LVDs 4.60 cm (3.5-5.7) IVSd 1.97 cm (0.6-1.1) PWd 1.08 cm (0.6-1.1) EF (Teich) 36.40% FS 17.70% EDV (Teich) 153.00 mL TAPSE 1.79 (<1.7) ESV (Teich) 97.30 mL LV Diastology E Decel Time 150.00 (160-240 msec) E/A Ratio 0.75 MED E' 2.50 (< 7 cm/sec) MED A' 9.70 cm/s E'/MED E' Ratio 34.88 (>14) LAT E' 8.60 (<10 cm/sec) LAT A' 10.20 cm/s E/LAT E' Ratio 10.14 (>14) Aortic Valve AI PHT 355.00 ms AO Peak GR. 11.60 mmHg Mitral Valve MV E Max Alessandro. 87.00 (40-130 cm/s) MV A Velocity 117.00 (40-130 cm/s) E/A Ratio 0.75 MV Decel. Time 150.00 (160-240 ms) MV PHT 44.00 ms Pulmonary Valve PV Peak Velocity 228.00 (50-150 cm/s) Tricuspid Valve TR P. Velocity 218.00 cm/s RAP Estimate 10.00 mmHg RVSP 29.00 mmHg Left Ventricle Left atrium is mildly enlarged, left ventricle is mildly dilated, mild concentric left ventricular hypertrophy, estimated ejection fraction of 30 to 35%, there is marked hypokinesis involving mid to distal septum, anterior, anterior apical and apical wall. Grade 1 diastolic dysfunction seen without tissue Doppler evidence of raise left atrial pressure. Right Ventricle Right atrium and right ventricle are normal size and contractility. Aortic Valve Aortic valve is minimally thickened and calcified without aortic stenosis, there is no significant aortic insufficiency. Mitral Valve Mitral valve leaflets are minimally thickened, there is mild mitral regurgitation. Tricuspid Valve Tricuspid valve is grossly normal, there is mild tricuspid regurgitation, tricuspid regurgitation jet velocity is inadequate for calculation of the right ventricular systolic pressure. Pulmonic Valve Pulmonic valve is poorly visualized. Great Vessels Aortic root is normal size. Inferior vena cava is poorly visualized. Pericardium No significant pericardial effusion noted. Conclusion 1. Mildly enlarged left atrium, mildly dilated left ventricle, visually estimated ejection fraction 30 to 35%, grade 1 diastolic dysfunction seen without tissue Doppler evidence of raise left atrial pressure, multiple segmental wall motion abnormalities as described above. 2. Mild mitral and tricuspid regurgitation. 3. No significant pericardial effusion noted. 4. Inferior vena cava is poorly visualized. Electronically signed by : Eugene Navarrete MD 06/11/2021 13:36:52
--- NOTE | 2021-06-10 16:34 | PC.NURSE ---
patient has done well. tracelet still on wrist. no complaints. bruising noted but no bleeding. rings out as needed. tolerating diet well. vitals stable. md to follow up and will decide on dc at that time.
--- NOTE | 2021-06-10 17:29 | HMH.DCSUM ---
General - General Admission date:: 06/09/21 Discharge date: 06/10/21 HPI HPI: 85-year-old white female with history of known coronary disease with stent placement in 2019. Also has a history of cardiomyopathy, has a ejection fraction of 20% per cardiology notes on recent echo. Has multiple comorbidities including diabetes, hypertension, frailty, kyphosis, functional decline and a history of lung cancer, stage II non-small cell, treated by Dr. Eden at our oncology clinic with several rounds of Keytruda, most recently in 2019. Patient states that she has been told that this lung cancer is fine. Records are not currently available in the EMR system prior to 2019. She tells me that she went to cardiology clinic for her normal checkup today and reported to them that she had some heaviness in the lower part of her chest and that they were concerned this might be her heart and admitted for left heart cath. She reports that her functional status at home is poor over the past couple of months because of weakness. She denies exertionally associated chest pressure or any pain. She denies palpitations or worsening leg swelling. Hospital Course Hospital Course: Patient was admitted per cardiology service for planned left heart cath for unstable angina. The heart catheterization took place the next morning-late in the morning, and results are noted below: IMPRESSION Widely patent coronary arteries as described above Regional wall motion abnormality with mildly reduced ejection fraction Elevated LVEDP Of note patient's troponin levels before the heart catheterization were normal. She tolerated the procedure fairly well, fortunately, and was able to eat and drink and did well afterwards. Her is able to take her home and care for her today. She knows to come back to cardiology clinic and to see her regular physician Dr. Armas in his office as scheduled. No medication changes. Of note, given her exposure to contrast and her advanced age and history of chronic kidney disease I have asked her to hold her Metformin for the next 2 days. Objective Vital signs: Temp Pulse Resp BP Pulse Ox 98.0 F 74 16 157/61 H 93 L 06/10/21 08:00 06/10/21 15:50 06/10/21 15:50 06/10/21 15:50 06/10/21 15:50 no acute distress - *Routine HEENT Exam Head: Present: normocephalic Eye: Present: EOMI, PERRL ENT: Present: mucous membranes moist - *Routine Neck Exam Present: supple - *Routine Respiratory Exam Present: CTA bilaterally - *Routine Cardiovascular Exam Present: RRR, murmur - *Routine Abdominal Exam Present: soft, normoactive bowel sounds. Absent: tenderness - *Routine Extremities Exam Absent: cyanosis, clubbing, edema - Routine Back/Spine/Pelvis Exam Comments: Thoracolumbar kyphosis as noted in HPI. - *Routine Skin Exam Present: warm. Absent: rash - Detailed Eye Exam Eyelids: Bilateral normal inspection Results Labs on day of discharge: Labs from last 24 hours 06/10/21 06/10/21 06/09/21 06:14 06:14 22:30 WBC 5.8 RBC 3.11 L Hgb 9.6 L Hct 31.2 L MCV 100.3 H MCH 30.7 MCHC 30.6 L RDW 14.6 Plt Count 250 MPV 7.3 L Neut % (Auto) 72.1 Lymph % (Auto) 18.0 [place] % (Auto) 6.4 Eos % (Auto) 3.0 Baso % (Auto) 0.6 Neut # (Auto) 4.2 Lymph # (Auto) 1.0 [place] # (Auto) 0.4 Eos # (Auto) 0.2 Baso # (Auto) 0.0 Sodium 142 Potassium 3.7 Chloride 102 Carbon Dioxide 40 H Anion Gap 3.7 L BUN 19 H Creatinine 0.70 Estimated Creat Clear 40 Estimated GFR 80 Est GFR ( Amer) 97 Glucose 103 H Calcium 8.2 L Troponin I 0.02 DS: Diagnosis - Discharge Diagnosis (1) Unstable angina Status: Ruled-out (2) Pale Status: Chronic (3) History of lung cancer Status: Chronic (4) HHD (hypertensive heart disease) Status: Chronic (5) Dyspnea Status: Resolved (6)
--- NOTE | 2021-06-10 17:58 | PC.NURSE ---
Patient found in room leaning on arm with radial site and tr band in place. Radial site observed to be bleeding, 5 ml added
--- NOTE | 2021-06-11 14:02 | CARE MANAGER ---
Called and spoke with patient regarding post discharge status. Patient states that she is doing well, but was unsure of when her follow-up cardiology appointment is scheduled for. Patient was advised that she has an appointment on 06/17 @ 10. No known issues at this time.
== END 2021-06-10 20:40 | disposition home or self-care (01) ==
LOC: 2ND 14:35
PROVIDERS: Internal Medicine; Nurse Practitioner Family; Admitting Provider Internal Medicine Adolescent Medicine; PCP Family Medicine; Visit Provider Internal Medicine Adolescent Medicine
DX: E78.2 Mixed hyperlipidemia (principal); I13.0 Hypertensive heart and chronic kidney disease with heart failure and stage 1 through stage 4 chronic kidney disease, or unspecified chronic kidney disease; I25.110 Atherosclerotic heart disease of native coronary artery with unstable angina pectoris; I42.9 Cardiomyopathy, unspecified; I50.22 Chronic systolic (congestive) heart failure; R06.00 Dyspnea, unspecified; Z95.0 Presence of cardiac pacemaker; T82.855A Stenosis of coronary artery stent, initial encounter; Z99.81 Dependence on supplemental oxygen; E11.22 Type 2 diabetes mellitus with diabetic chronic kidney disease; Z79.84 Long term (current) use of oral hypoglycemic drugs; Z79.01 Long term (current) use of anticoagulants; E03.9 Hypothyroidism, unspecified; N18.9 Chronic kidney disease, unspecified
CPT/HCPCS: G0378; G0379; 36415; 80048; 80061; 80076; 84439; 84443; 84484; 85025; 93005; 93306; 93458; 99152; C1725; C1769; C9803; J1644; Q9967; U0003; U0005

== ENCOUNTER 2021-06-28 13:20 | Observation (INO) | payer MEDICARE, SELFPAY ==
[2021-06-28] VITALS (13 sets, daily range): BP systolic 125–149; BP diastolic 44–99; PULSE 62–87; RESP 16–20; TEMP 36.6–36.9; O2SAT 84–94; BMI 25.6; BMI 23.6
--- NOTE | 2021-06-28 13:23 | XR_ITS ---
FINAL REPORT CLINICAL HISTORY: SOB COMPARISON: December 26, 2018 FINDINGS: The heart is mildly enlarged. There is a right subclavian pacemaker. The mediastinum is normal. There is no focal infiltrate or edema. There are no pleural effusions. There is no pneumothorax. There is no osseous abnormality. IMPRESSION: No acute cardiopulmonary process Reviewed, Interpreted and Dictated by Phillip Moerira MD Transcribed by Ricardo Mcconnell Authenticated by Phillip Moreira MD on 06/28/2021 02:41:36 PM [facility]
--- NOTE | 2021-06-28 13:50 | ECG_ITS ---
APPROVED REPORT Exam: Resting ECG HR:73 bpm ECG Measurements Heart Rate 73 AXES QRSd 185 QRS -76 QT 442 T 111 QTc 468 Conclusion ELECTRONIC VENTRICULAR PACEMAKER ABNORMAL RHYTHM ECG UNCONFIRMED REPORT Electronically signed by : Joe Newton MD 07/01/2021 17:44:36
[2021-06-28 13:51] LABS: Lactic Acid 0.7 mmol/L (0.7-2.1)
[2021-06-28 13:52] LABS: Alanine Aminotransferase 17 U/L (12-78); Albumin Level 3.4 g/dl (3.5-5.0); Albumin/Globulin Ratio 1.1 (1.1-1.8); Alkaline Phosphatase 100 U/L (38-126); Anion Gap 8.6 mEq/L (5-15); Aspartate Amino Transferase 36 U/L (14-36); Bilirubin,Total 0.3 mg/dl (0.2-1.3); Blood Urea Nitrogen 23 mg/dl (7-17); Calcium 8.6 mg/dl (8.4-10.2); Carbon Dioxide 37 mmol/L (22.0-30.0); Chloride 97 mmol/L (98-107); Creatinine Clearance Estimated 43 mL/min (50-200); Estimated Glomerular Filt Rate 80 ml/min (>60); GFR (African American) 97 ML/MIN (>60); Globulin 3.1 g/dL (1.3-3.2); Glucose 105 mg/dl (74-100); Potassium 4.6 mmoL/L (3.5-5.1); Sodium 138 mmol/L (136-145); Total Protein,Serum 6.5 g/dl (6.3-8.2)
[2021-06-28 14:01] LABS: Basophils % 0.5 % (0.1-2.0); Eosinophils # 0.2 K/mm3 (0.0-0.4); Eosinophils % 3.2 % (0.1-12.0); Hematocrit 33.5 % (37.0-47.0); Hemoglobin 10.2 g/dL (12.2-16.2); Lymphocytes # 1.3 K/mm3 (0.7-4.5); Lymphocytes % 19.1 % (10-50); Mean Corpuscular HGB Conc 30.4 g/dL (31.8-35.4); Mean Corpuscular Hemoglobin 31.2 pg (27.0-31.2); Mean Corpuscular Volume 102.5 fl (81-99); Mean Platelet Volume 7.9 fl (7.4-10.4); Monocytes # 0.4 K/mm3 (0.1-1.0); Monocytes % 5.5 % (1.7-9.3); Neutrophils # 4.9 K/mm3 (1.8-7.8); Neutrophils % 71.7 % (37.0-80.0); Platelet Count 251 K/mm3 (142-424); Red Blood Count 3.26 M/mm3 (4.20-5.40); Red Cell Distribution Width 14.6 % (11.5-17.5); White Blood Count 6.8 K/mm3 (4.8-10.8)
[2021-06-28 14:03] LABS: NT Pro Brain Natriuretic Pep. 1590 pg/mL (0-450)
[2021-06-28 14:04] LABS: Troponin I 0.01 ng/ml (0.00-0.034)
[2021-06-28 14:05] LABS: C-Reactive Protein 21.7 mg/L (0-4)
[2021-06-28 15:48] LABS: Coronavirus 19, PCR Not Detected (NotDetected); Influenza B, PCR Not Detected (NotDetected)
--- NOTE | 2021-06-28 16:08 | HMH.EDGENADL ---
ED Disposition Clinical Impression: COPD exacerbation, Influenza A Disposition: Admitted As Inpatient Condition on Discharge: Undetermined - Critical Care Critical Care Time: No Attestation: On 06/28/21, the high probability of a clinically significant, sudden or life threatening deterioration of the following system(s) required my full and direct attention, intervention and personal management. The time I documented below is in addition to time spent performing reported procedures but includes the following listed in this critical care notation. Medical Decision Making - Medical Records Medical records reviewed: Yes: I reviewed the patient's medical records. - Johnny Inquiry Pt receiving controlled substance: No Vital Signs: 06/28/21 13:21 06/28/21 14:00 06/28/21 14:30 Temperature 98.4 F Temperature Source Oral Pulse Rate 71 74 Pulse Rate [Radial] 87 Respiratory Rate 16 18 16 Blood Pressure 149/59 H 129/78 Blood Pressure [Right Arm] 144/52 H Blood Pressure Mean 89 94 Blood Pressure Mean [Right Arm] 82 Blood Pressure Position [Right Arm] Sitting 02 Sat by Pulse Oximetry 84 L Oxygen Delivery Method Nasal Cannula Oxygen Flow Rate (LPM) 2 06/28/21 15:00 06/28/21 15:10 06/28/21 15:30 Temperature Temperature Source Pulse Rate 67 66 68 Pulse Rate [Radial] Respiratory Rate 16 16 Blood Pressure 140/55 L 141/55 H Blood Pressure [Right Arm] Blood Pressure Mean 89 88 Blood Pressure Mean [Right Arm] Blood Pressure Position [Right Arm] 02 Sat by Pulse Oximetry Oxygen Delivery Method Oxygen Flow Rate (LPM) 06/28/21 16:00 06/28/21 16:30 06/28/21 16:55 Temperature Temperature Source Pulse Rate 62 69 78 Pulse Rate [Radial] Respiratory Rate 20 16 16 Blood Pressure 148/53 H 131/44 L 140/77 Blood Pressure [Right Arm] Blood Pressure Mean 85 95 98 Blood Pressure Mean [Right Arm] Blood Pressure Position [Right Arm] 02 Sat by Pulse Oximetry Oxygen Delivery Method Oxygen Flow Rate (LPM) 06/28/21 17:00 06/28/21 19:41 Temperature 98 F Temperature Source Oral Pulse Rate 74 78 Pulse Rate [Radial] Respiratory Rate 16 20 Blood Pressure 133/99 H 125/74 Blood Pressure [Right Arm] Blood Pressure Mean 103 Blood Pressure Mean [Right Arm] Blood Pressure Position [Right Arm] 02 Sat by Pulse Oximetry Oxygen Delivery Method Nasal Cannula Oxygen Flow Rate (LPM) 2.5 - Lab Data Lab results reviewed: Yes: I reviewed the patient's lab results. Lab Results 06/28/21 13:30: WBC 6.8, RBC 3.26 L, Hgb 10.2 L, Hct 33.5 L, MCV 102.5 H, MCH 31.2, MCHC 30.4 L, RDW 14.6, Plt Count 251, MPV 7.9, Neut % (Auto) 71.7, Lymph % (Auto) 19.1, [place] % (Auto) 5.5, Eos % (Auto) 3.2, Baso % (Auto) 0.5, Neut # (Auto) 4.9, Lymph # (Auto) 1.3, [place] # (Auto) 0.4, Eos # (Auto) 0.2, Baso # (Auto) 0.0 06/28/21 13:30: Sodium 138, Potassium 4.6, Chloride 97 L, Carbon Dioxide 37 H, Anion Gap 8.6, BUN 23 H, Creatinine 0.70, Estimated Creat Clear 43, Estimated GFR 80, Est GFR ( Amer) 97, Glucose 105 H, Calcium 8.6, Total Bilirubin 0.3, AST 36, ALT 17, Alkaline Phosphatase 100, Troponin I 0.01, NT-Pro-B Natriuret Pep 1590 H, Total Protein 6.5, Albumin 3.4 L, Globulin 3.1, Albumin/Globulin Ratio 1.1 06/28/21 13:30: Lactate 0.7 06/28/21 13:30: C-Reactive Protein 21.7 H 06/28/21 15:40: SARS-CoV-2 (PCR) Not detected, Influenza A Untype (PCR) Detected A, Influenza Type B (PCR) Not detected 06/28/21 16:23: Troponin I 0.01 06/28/21 19:31: Troponin I 0.02 Result diagrams: 06/28/21 13:30 06/28/21 13:30 Orders (Tests/Meds): ED MEDICATIONS Generic Name Dose Route Start Last Admin Trade Name Freq PRN Reason Stop Dose Admin Albuterol/Ipratropium 3 ml 06/28/21 19:56 Ipratropium/Albuterol 3 Ml Neb IH 07/28/21 19:55 Q4HP PRN Shortness Of Breath Dexamethasone Sodium Phosphate 6 mg 06/29/21 09:00 Dexamethasone 4mg/Ml 1ml Vial IV 07/29/21
--- NOTE | 2021-06-28 16:26 | PC.NURSE ---
ASSESSED PT AT THIS TIME. NO NEW NEEDS
[2021-06-28 16:33] LABS: Influenza A, PCR Detected (NotDetected)
--- NOTE | 2021-06-28 16:41 | PC.NURSE ---
GOT PT UP TO A CHAIR PER HER REQUEST. AT BEDSIDE AY THIS TIME.
--- NOTE | 2021-06-28 16:47 | PC.NURSE ---
Dr. Yang on for service, paged at this time
--- NOTE | 2021-06-28 17:06 | PC.NURSE ---
Dr browne spoke with Dr Yang for admission.
--- NOTE | 2021-06-28 17:22 | PC.NURSE ---
[id number] bed assignment requested, room 212 all staff notified
[2021-06-28 17:28] LABS: Troponin I 0.01 ng/ml (0.00-0.034)
--- NOTE | 2021-06-28 18:32 | PC.NURSE ---
Looked in on patient, and pt trying to cough up phlem with no success. Asked if pt would rest easier in chair, pt declined.
--- NOTE | 2021-06-28 19:04 | PC.NURSE ---
ATTEMPTED TO CALL REPORT WILL HAVE TO CALL BACK
--- NOTE | 2021-06-28 19:41 | PC.NURSE ---
patient up to floor via wheelchair @ this time.
[2021-06-28 20:16] LABS: Troponin I 0.02 ng/ml (0.00-0.034)
[2021-06-29] VITALS: BP 136/60; PULSE 73; PULSE 80; RESP 18; TEMP 36.8; O2SAT 96
[2021-06-29 04:00] VITALS: BP 123/64; PULSE 68; PULSE 90; RESP 16; TEMP 36.6; O2SAT 96
--- NOTE | 2021-06-29 07:22 | HMH.PHAINT ---
Home medication list was verified using the patient's P[employer] claim history and information provided by the patient.
--- NOTE | 2021-06-29 07:27 | HMH.PHAVTE ---
[facility] VTE Monitoring - Patient Demographics Admission date: 06/29/21 Report Date: 06/29/21 Time: 07:27 Allergies/Adverse Reactions: Patient Allergies Penicillins Allergy (Unknown, Verified 06/17/21 10:15) morphine Adverse Reaction (Severe, Verified 06/17/21 10:15) SHORTNESS OF BREATH prednisone Adverse Reaction (Verified 06/28/21 13:43) Height: 1.57 m Weight: 58.332 kg Patient Problems: Current Active Problems COPD exacerbation (Acute) Influenza A (Acute) - VTE Risk Labs: VTE Related Lab Results Hgb 10.2 g/dL (12.2-16.2) L 06/28/21 13:30 Hct 33.5 % (37.0-47.0) L 06/28/21 13:30 Plt Count 251 K/mm3 (142-424) 06/28/21 13:30 BUN 23 mg/dl (7-17) H 06/28/21 13:30 Creatinine 0.70 mg/dl (0.52-1.04) 06/28/21 13:30 Estimated Creat Clear 43 mL/min (50-200) 06/28/21 13:30 VTE Score: 2 VTE Risk Level: Very Low Risk Clinical Trial Participant: No - Prophylaxis VTE Prophylaxis Ordered?: Yes Types of VTE Prophylaxis: TEDS Knee High
[2021-06-29 08:00] VITALS: BP 164/90; PULSE 100; PULSE 92; RESP 19; TEMP 36.7; O2SAT 96
--- NOTE | 2021-06-29 08:47 | HMH.HP ---
*Admission Date: 06/29/21 *Chief complaint: Cough and shortness of breath *History of present illness: Ms. Hernandez is an 85-year-old female with a history of known coronary artery disease with stent placement in 2019, cardiomyopathy, with ejection fraction of 20% per cardiology on recent echo, and multiple comorbidities to include diabetes, hypertension, T, kyphosis, functional decline and a history of lung cancer stage II non-small cell treated by Dr. Eden with several rounds of Keytruda with the most recently being in 2019. Been told that her lung cancer is fine. Patient states she started getting sick on 06/26/2021 with a cough and shortness of breath. She took DuoNeb treatments which did not help. It progressively worsened and thus she presented to the emergency room yesterday. She denies having a fever sore throat, any drainage. She generally feels terrible. Evaluation in the emergency room she was found to have influenza type A. Hemoglobin was 10.2 and hematocrit 33.5. WhiteBlood cell count is 6800. Renal function shows a BUN of 23 and creatinine 0.7. BNP is 1590. Lactate is 0.7. In the emergency room she received DuoNeb treatment, dexamethasone 6 mg IV, and was started on Tamiflu 75 mg p.o. With reevaluation in the emergency room after treatment She had no improvement in her symptoms. Thus she was admitted. Patient refused duo nebs after admission. She states that they just did not help at home. Have encouraged her to take and she agrees to take 1 now. She denies chest pain. She continues to be short of air with a congested cough. She states she was able to eat breakfast this morning. She denies having a fever, nausea, vomiting, and diarrhea. [facility] History Medical History: Reports:: Cancer (Lung), Cardiomyopathy, Congestive Heart Failure, Chronic Obstructive Pulmonary Disease (COPD), Coronary Artery Disease, Diabetes Mellitus Type 2, Gastroesophageal Reflux Disease(GERD), Home Oxygen, Hyperlipidemia, Hypertension, Internal Pacemaker, Myocardial Infarction, Renal Insufficiency Denies:: Diabetes Mellitus Type 1, MRSA, Seizures *Have you ever received a pneumonia vaccine?: Yes *Have you received a flu vaccine this season?: Yes Other Medical History: Reports: Anemia, Arthritis, Hypothyroidism, Thyroid Disease Other Surgeries: Yes: Cardiac Catheterization, Cholecystectomy, Colonoscopy, Coronary Stent, Hysterectomy-Total, Hysterectomy-Partial, Pacemaker, Thyroidectomy, Other (MASS REMOVED FROM THYROID) Amputation: No Fractures: No - *Social History Smoking Status: Former smoker Tobacco Type: cigarettes # Packs/Day (cigarettes): 1 #Yrs smoked (if former smoker): 30 Alcohol Intake: never Alcohol Intake Frequency:: other Substance Use Type: denies use *Occupational Status:: retired Housing: house Household Members: spouse *Travel in the last 8 weeks: None Family Hx:: Coronary Artery Disease Review of Systems - Constitutional Reports lack of energy, Denies fever(s) - Eyes Denies change in vision - ENT Denies ear pain, Denies sore throat - *Cardiovascular Reports shortness of breath, Denies chest pain - *Respiratory Reports chest congestion, Reports cough, Reports shortness of breath - *Gastrointestinal Denies abdominal pain, Denies change in stools, Denies vomiting blood, Denies nausea, Denies vomiting - *Genitourinary Denies difficulty urinating - *Musculoskeletal Denies joint pain - *Neurologic Denies confusion, Denies dizziness, Denies headache(s) Meds Home Medications Medication Instructions Recorded Confirmed Type Metformin HCl [Glucophage 500mg 500 mg PO BIDWMEAL 03/29/17 06/28/21 History Tablet] PARoxetine HCl [Paxil] 20 mg PO HS 03/29/17 06/28/21 History chlordiazepoxide HCl 25 mg capsule 25 mg PO BID cap 04/24/17 06/28/21 History pantoprazole 40 mg tablet,delayed 40 mg PO DAILY #90 tab 07/27/17 06/28/21 Rx release carvediloL [Carvedilol 6.25mg Tab] 6.25 mg PO BID 08/02/1806/18
[2021-06-29 11:42] VITALS: BMI 23.6
[2021-06-29 12:00] VITALS: BP 174/71; PULSE 85; PULSE 90; RESP 19; TEMP 36.7; O2SAT 98
[2021-06-29 13:04] LABS: POC Glucose,Bedside 126 (70-110)
--- NOTE | 2021-06-29 15:20 | PC.NURSE ---
PT IS RESTING IN BED. PT STATES SHE JUST FEELS VERY WEAK/SOA. O2 SATURATION HAS MAINTAINED 91-95% ON 4 L NC. LUNG SOUNDS DIMINISHED WITH WHEEZES T/O. ABDOMEN SOFT/NON TENDER WITH ACTIVE BOWEL SOUNDS. AMBULATE WITH ASSISTANCE TO THE BATHROOM. WILL CONTINUE TO MONITOR.
[2021-06-29 16:00] VITALS: BP 147/61; PULSE 74; PULSE 85; RESP 19; TEMP 36.9; O2SAT 100
[2021-06-29 16:15] LABS: POC Glucose,Bedside 131 (70-110)
[2021-06-29 20:00] VITALS: BP 143/67; PULSE 85; PULSE 90; RESP 24; TEMP 36.8; O2SAT 94
[2021-06-29 22:36] LABS: POC Glucose,Bedside 112 (70-110)
[2021-06-30] VITALS: BP 138/54; PULSE 100; PULSE 102; RESP 20; TEMP 36.7; O2SAT 99
[2021-06-30 04:00] VITALS: BP 135/58; PULSE 80; PULSE 83; RESP 22; TEMP 36.8; O2SAT 99
--- NOTE | 2021-06-30 04:45 | PC.NURSE ---
pt has rested t/o shift, O2 weaned down to 2L this shift, O2 sats 94-99%, intermittent, nonproductive cough present, pt has no complaints of SOA or pain, has ambulated to BR with assist X 1
[2021-06-30 05:00] VITALS: BMI 23.6
[2021-06-30 06:51] LABS: POC Glucose,Bedside 111 (70-110)
[2021-06-30 07:55] VITALS: BP 142/65; PULSE 92; RESP 17; TEMP 36.7; O2SAT 90
[2021-06-30 08:10] LABS: Basophils # 0.2 K/mm3 (0-0.2); Basophils % 2.9 % (0.1-2.0); Eosinophils # 0.1 K/mm3 (0.0-0.4); Eosinophils % 2.2 % (0.1-12.0); Hematocrit 34.4 % (37.0-47.0); Hemoglobin 10.6 g/dL (12.2-16.2); Lymphocytes # 1.3 K/mm3 (0.7-4.5); Lymphocytes % 19.8 % (10-50); Mean Corpuscular HGB Conc 30.7 g/dL (31.8-35.4); Mean Corpuscular Hemoglobin 31.2 pg (27.0-31.2); Mean Corpuscular Volume 101.4 fl (81-99); Mean Platelet Volume 7.8 fl (7.4-10.4); Monocytes # 0.4 K/mm3 (0.1-1.0); Monocytes % 6.8 % (1.7-9.3); Neutrophils # 4.3 K/mm3 (1.8-7.8); Neutrophils % 68.4 % (37.0-80.0); Platelet Count 244 K/mm3 (142-424); Red Cell Distribution Width 14.2 % (11.5-17.5); White Blood Count 6.3 K/mm3 (4.8-10.8)
--- NOTE | 2021-06-30 08:26 | HMH.ACPN2 ---
Internal Medicine - PN: Subj *Date: 06/30/21 *Time: 08:26 Interval history: Patient states she is feeling better this morning. She denies any pain and states she is less short of breath. She still has some wheezing. She slept well and ate a good breakfast. Exam Vital signs and Labs for Last 24 Hours: Temp Pulse Resp BP Pulse Ox 98.1 F 92 H 17 142/65 H 90 L 06/30/21 07:55 06/30/21 07:55 06/30/21 07:55 06/30/21 07:55 06/30/21 07:55 Laboratory Results - last 24 hr 06/29/21 11:46: POC Glucose 126 H 06/29/21 16:01: POC Glucose 131 H 06/29/21 21:54: POC Glucose 112 H 06/30/21 05:31: POC Glucose 111 H 06/30/21 07:45: WBC 6.3, RBC 3.40 L, Hgb 10.6 L, Hct 34.4 L, MCV 101.4 H, MCH 31.2, MCHC 30.7 L, RDW 14.2, Plt Count 244, MPV 7.8, Neut % (Auto) 68.4, Lymph % (Auto) 19.8, Beadle % (Auto) 6.8, Eos % (Auto) 2.2, Baso % (Auto) 2.9 H, Neut # (Auto) 4.3, Lymph # (Auto) 1.3, Beadle # (Auto) 0.4, Eos # (Auto) 0.1, Baso # (Auto) 0.2 I & O for Last 24 hours: Intake & Output 06/27/21 06/28/21 06/29/21 06/30/21 11:59 11:59 11:59 11:59 Intake Total 320 / 320 360 / 360 Balance 320 / 320 360 / 360 Weight 128 lb 8.472 oz 128 lb 1.6 oz - Constitutional no acute distress - *Routine Respiratory Exam Present: decreased breath sounds, wheezes - *Routine Cardiovascular Exam Present: RRR - *Routine Abdominal Exam Present: soft, normoactive bowel sounds. Absent: tenderness - *Routine Extremities Exam Absent: cyanosis, clubbing, edema - *Routine Skin Exam Present: warm. Absent: rash - *Routine Neurological Exam Present: alert, oriented X3 Assessment and Plan (1) Pacemaker Status: Chronic Category: Medical Code(s): Z95.0 - Presence of cardiac pacemaker (2) COPD exacerbation Status: Acute Category: Medical Code(s): J44.1 - Chronic obstructive pulmonary disease with (acute) exacerbation (3) Influenza A Status: Acute Category: Medical Code(s): J10.1 - Influenza due to other identified influenza virus with other respiratory manifestations (4) Lung cancer Status: Chronic Qualifiers: Laterality: right Lung location: lower lobe of lung Qualified Code(s): C34.31 - Malignant neoplasm of lower lobe, right bronchus or lung Category: Medical Code(s): C34.90 - Malignant neoplasm of unspecified part of unspecified bronchus or lung (5) Anemia Status: Chronic Qualifiers: Anemia type: unspecified type Qualified Code(s): D64.9 - Anemia, unspecified Category: Medical Code(s): D64.9 - Anemia, unspecified (6) CAD (coronary artery disease) Status: Chronic Qualifiers: Coronary Disease-Associated Artery/Lesion type: [place] artery [place] vs. transplanted heart: [place] heart Associated angina: without angina Qualified Code(s): I25.10 - Atherosclerotic heart disease of [place] coronary artery without angina pectoris Category: Medical Code(s): I25.10 - Atherosclerotic heart disease of [place] coronary artery without angina pectoris (7) CHF (congestive heart failure), NYHA class III Status: Chronic Qualifiers: Congestive heart failure type: systolic Congestive heart failure chronicity: chronic Qualified Code(s): I50.22 - Chronic systolic (congestive) heart failure Category: Medical Code(s): I50.9 - Heart failure, unspecified (8) CKD (chronic kidney disease) Status: Chronic Qualifiers: Chronic kidney disease stage: unspecified stage Qualified Code(s): N18.9 - Chronic kidney disease, unspecified Category: Medical Code(s): N18.9 - Chronic kidney disease, unspecified (9) Diastolic dysfunction Status: Chronic Category: Medical Code(s): I51.89 - Other ill-defined heart diseases (10) HHD (hypertensive heart disease) Status: Chronic Qualifiers: Heart failure presence: unspecified whether heart failure present Qualified Code(s): I11.9 - Hypertensive heart disease without heart failure Category: Medical
[2021-06-30 08:37] LABS: Chloride 99 mmol/L (98-107); Potassium 4.3 mmoL/L (3.5-5.1); Sodium 139 mmol/L (136-145)
[2021-06-30 08:40] LABS: Alanine Aminotransferase 20 U/L (12-78); Albumin Level 3.3 g/dl (3.5-5.0); Alkaline Phosphatase 86 U/L (38-126); Anion Gap 7.3 mEq/L (5-15); Aspartate Amino Transferase 43 U/L (14-36); Bilirubin,Total 0.4 mg/dl (0.2-1.3); Blood Urea Nitrogen 25 mg/dl (7-17); Carbon Dioxide 37 mmol/L (22.0-30.0); Creatinine Clearance Estimated 39 mL/min (50-200); Estimated Glomerular Filt Rate 80 ml/min (>60); GFR (African American) 97 ML/MIN (>60); Globulin 3.2 g/dL (1.3-3.2); Total Protein,Serum 6.5 g/dl (6.3-8.2)
[2021-06-30 08:41] LABS: Calcium 7.8 mg/dl (8.4-10.2); Glucose 129 mg/dl (74-100)
[2021-06-30 09:11] LABS: Thyroid Stimulating Hormone 0.18 uIU/mL (0.465-4.68)
--- NOTE | 2021-06-30 09:33 | HMH.PHAINT ---
I spoke with the patient today about their medication list. Went over the new medications that were being sent in and also reviewed the medications they were to continue on at home. When we spoke, the patient did not have any questions or concerns. The patient was provided a copy of the medication list.
--- NOTE | 2021-06-30 09:57 | PC.NURSE ---
Printed pts packet working on getting her ready to leave.
[2021-06-30 11:08] LABS: Vitamin B12 294 pg/mL (239-931)
--- NOTE | 2021-07-01 14:24 | CARE MANAGER ---
Spoke with patient's caregiver regarding follow up from discharge. He states patient seems better today. She is still coughing without much sputum production, but is ok. They picked up her prescriptions, but instead of keeping the appointment with Dr. Yang she is going to schedule follow up with Dr. Armas whom she normally sees. MARCO Gordillo
--- NOTE | 2021-07-01 16:21 | HMH.DCSUM ---
General - General Admission date:: 06/28/21 Discharge date: 06/30/21 HPI HPI: Ms. Sher is an 85-year-old female with a history of known coronary artery disease with stent placement in 2019, cardiomyopathy, with ejection fraction of 20% per cardiology on recent echo, and multiple comorbidities to include diabetes, hypertension, kyphosis, functional decline and a history of lung cancer stage II non-small cell treated by Dr. Eden with several rounds of Keytruda with the most recently being in 2019. She has been told that her lung cancer is fine. Patient states she started getting sick on 06/26/2021 with a cough and shortness of breath. She took DuoNeb treatments which did not help. It progressively worsened and thus she presented to the emergency room yesterday. She denies having a fever sore throat, any drainage. She generally feels terrible. With evaluation in the emergency room she was found to have influenza type A. Hemoglobin was 10.2 and hematocrit 33.5. WhiteBlood cell count is 6800. Renal function shows a BUN of 23 and creatinine 0.7. BNP is 1590. Lactate is 0.7. In the emergency room she received DuoNeb treatment, dexamethasone 6 mg IV, and was started on Tamiflu 75 mg p.o. With reevaluation in the emergency room after treatment, she had no improvement in her symptoms. Thus she was admitted. Patient refused duo nebs after admission. She states that they just did not help at home. Have encouraged her to take and she agrees to take one now. She denies chest pain. She continues to be short of air with a congested cough. She states she was able to eat breakfast this morning. She denies having a fever, nausea, vomiting, and diarrhea. Hospital Course Hospital Course: The patient's chest x-ray showed nothing acute. She was continued on duo nebs and cough medication was added. Some of her home medications were restarted and she was started on sliding scale insulin for diabetes. She was also started on Tamiflu. By 06/30/2021, she was feeling better. She had less shortness of breath, but still had some wheezing. She had slept and was able to eat. Her oxygen saturation was 90% on 2 L. It was felt she was stable to be discharged home on continued Tamiflu, dexamethasone, and Mucinex D. She will follow up with Dr. Yang in the office. Objective Vital signs: Temp Pulse Resp BP Pulse Ox 98.1 F 92 H 17 142/65 H 90 L 06/30/21 07:55 06/30/21 07:55 06/30/21 07:55 06/30/21 07:55 06/30/21 07:55 Narrative: - Constitutional mild distress Comments: Frequent congested cough - *Routine HEENT Exam Head: Present: normocephalic, atraumatic Eye: Present: PERRL ENT: Present: mucous membranes moist, oropharynx clear - *Routine Neck Exam Present: supple. Absent: carotid bruit (Unable to hear due to wheezing), lymphadenopathy, thyromegaly - *Routine Respiratory Exam Present: accessory muscle use, wheezes (Scattered throughout), diminished air movement (Throughout with wheezing) - *Routine Cardiovascular Exam Present: RRR - *Routine Abdominal Exam Present: soft, normoactive bowel sounds. Absent: tenderness, distended - *Routine Rectal Exam Rectal:: deferred - *Routine Genitalia Exam Genitalia:: deferred - *Routine Extremities Exam Absent: edema, calf tenderness - *Routine Neurological Exam Present: alert, oriented X3 Results Labs on day of discharge: Preliminary micro results at discharge 06/28/21 13:40 Blood Culture - Preliminary Blood NO GROWTH AFTER 48 HOURS 06/28/21 13:40 Blood Culture - Preliminary Blood NO GROWTH AFTER 48 HOURS DS: Diagnosis - Discharge Diagnosis (1) Pacemaker Status: Chronic (2) COPD exacerbation Status: Acute (3) Influenza A Status: Acute (4) Lung cancer Status: Chronic (5) Anemia Status: Chronic (6) CAD (coronary artery disease) Status: Chronic (7) CHF (congestive heart failure), NYHA cla
== END 2021-06-30 10:15 | disposition home or self-care (01) ==
LOC: ER 13:26 → 2ND 20:03
PROVIDERS: Admitting Provider Family Medicine; Emergency Provider Emergency Medicine; PCP Family Medicine; Visit Provider Family Medicine
DX: J10.1 Influenza due to other identified influenza virus with other respiratory manifestations; J44.9 Chronic obstructive pulmonary disease, unspecified; I25.10 Atherosclerotic heart disease of native coronary artery without angina pectoris; I42.9 Cardiomyopathy, unspecified; I50.9 Heart failure, unspecified; I13.0 Hypertensive heart and chronic kidney disease with heart failure and stage 1 through stage 4 chronic kidney disease, or unspecified chronic kidney disease; E11.22 Type 2 diabetes mellitus with diabetic chronic kidney disease; D64.9 Anemia, unspecified; M40.209 Unspecified kyphosis, site unspecified; Z79.02 Long term (current) use of antithrombotics/antiplatelets; Z79.84 Long term (current) use of oral hypoglycemic drugs; Z95.5 Presence of coronary angioplasty implant and graft; C34.90 Malignant neoplasm of unspecified part of unspecified bronchus or lung; K44.9 Diaphragmatic hernia without obstruction or gangrene
CPT/HCPCS: G0378; 36415; 71045; 80053; 82607; 82962; 83605; 83880; 84443; 84484; 85025; 86140; 87040; 93005; 94761; 96365; 99285; C9803; U0003; U0005

== ENCOUNTER → 2021-09-07 12:16 | Outpatient (CLI) | payer MEDICARE, SELFPAY | PROVIDERS: PCP Family Medicine; Visit Provider Nurse Practitioner Family | DX: I25.5 Ischemic cardiomyopathy (principal) ==

== ENCOUNTER 2021-09-07 12:46 | Inpatient (IN) | payer MEDICARE, SELFPAY ==
[2021-09-07] VITALS (9 sets, daily range): BP systolic 113–146; BP diastolic 36–56; PULSE 70–90; RESP 17–22; TEMP 36.8–36.9; O2SAT 60–99; BMI 28.3; BMI 22.1
--- NOTE | 2021-09-07 12:59 | PC.NURSE ---
Pt moved to room 1 r/t low O2 and RT notified of MD request for bipap.
--- NOTE | 2021-09-07 13:01 | XR_ITS ---
FINAL REPORT CLINICAL HISTORY: chets pain and dypsne a COMPARISON: June 28, 2021 FINDINGS: A single portable view of the chest was obtained. The heart is enlarged. There is a right subclavian pacemaker seen. There is mild pulmonary vascular congestion. The mediastinum is within normal limits. There is a right midlung mass worrisome for neoplasm. A small right pleural effusion is seen. The bony thorax is intact. IMPRESSION: Right midlung mass worrisome for neoplasm. Recommend chest CT. Reviewed, Interpreted and Dictated by Issa Teresa III, MD Transcribed by Chanel Oneal Authenticated and [facility]
--- NOTE | 2021-09-07 13:05 | ECG_ITS ---
APPROVED REPORT Exam: Resting ECG HR:70 bpm ECG Measurements Heart Rate 70 AXES QRSd 187 QRS -84 QT 443 T 97 QTc 463 Conclusion ELECTRONIC VENTRICULAR PACEMAKER ABNORMAL RHYTHM ECG UNCONFIRMED REPORT Electronically signed by : Joe Newton MD 09/08/2021 14:40:29
[2021-09-07 13:11] LABS: VBG Base Excess 13.5 mmol/L (-2.4-2.3); VBG Oxygen Saturation 84.2 % (50-70); VBG PH 7.35 mmol/L (7.31-7.41); VBG PO2 48.5 mmol/L (28-40); VBG Total CO2 41.2 mmol/L (23-27)
[2021-09-07 13:14] LABS: VBG PCO2 71.6 mmol/L (35-51)
--- NOTE | 2021-09-07 13:15 | PC.NURSE ---
Resp called with CO2 of 71.6, repeated and verified and notified
[2021-09-07 13:19] LABS: Coronavirus 19, PCR Not Detected (NotDetected); Influenza A, PCR Not Detected (NotDetected); Influenza B, PCR Not Detected (NotDetected)
[2021-09-07 13:19] LABS: Basophils # 0.1 K/mm3 (0-0.2); Eosinophils # 0.2 K/mm3 (0.0-0.4); Eosinophils % 2.1 % (0.1-12.0); Hematocrit 33.4 % (37.0-47.0); Hemoglobin 10.2 g/dL (12.2-16.2); Lymphocytes # 1.5 K/mm3 (0.7-4.5); Lymphocytes % 15.7 % (10-50); Mean Corpuscular HGB Conc 30.4 g/dL (31.8-35.4); Mean Corpuscular Hemoglobin 31.1 pg (27.0-31.2); Mean Corpuscular Volume 102.3 fl (81-99); Mean Platelet Volume 7.7 fl (7.4-10.4); Monocytes # 0.5 K/mm3 (0.1-1.0); Monocytes % 5.4 % (1.7-9.3); Neutrophils % 75.7 % (37.0-80.0); Platelet Count 359 K/mm3 (142-424); Red Blood Count 3.27 M/mm3 (4.20-5.40); Red Cell Distribution Width 15.8 % (11.5-17.5); White Blood Count 9.2 K/mm3 (4.8-10.8)
[2021-09-07 13:25] LABS: Alanine Aminotransferase 17 U/L (12-78); Albumin Level 3.2 g/dl (3.5-5.0); Albumin/Globulin Ratio 0.9 (1.1-1.8); Alkaline Phosphatase 134 U/L (38-126); Aspartate Amino Transferase 37 U/L (14-36); Blood Urea Nitrogen 21 mg/dl (7-17); Chloride 95 mmol/L (98-107); Creatinine Clearance Estimated 47 mL/min (50-200); Estimated Glomerular Filt Rate 80 ml/min (>60); GFR (African American) 97 ML/MIN (>60); Globulin 3.5 g/dL (1.3-3.2); Glucose 124 mg/dl (74-100); Potassium 4.7 mmoL/L (3.5-5.1); Sodium 138 mmol/L (136-145); Total Protein,Serum 6.7 g/dl (6.3-8.2)
[2021-09-07 13:31] LABS: Anion Gap 9.7 mEq/L (5-15); Carbon Dioxide 38 mmol/L (22.0-30.0)
[2021-09-07 13:34] LABS: Bilirubin,Total < 0.1 mg/dl (0.2-1.3)
[2021-09-07 13:36] LABS: Troponin I 0.03 ng/ml (0.00-0.034)
--- NOTE | 2021-09-07 15:26 | PC.NURSE ---
Rounded on patient. Updated pt on POC. No new needs at this time.
--- NOTE | 2021-09-07 15:27 | CT_ITS ---
FINAL REPORT CLINICAL HISTORY: neoplasm concenr, soa FINDINGS: Axial CT images of the chest were obtained with contrast. Coronal reformatted images were also obtained. This study was performed with techniques to keep radiation doses as low as reasonably achievable, (ALARA). Individualized dose reduction techniques using automated exposure control or adjustment of mA and/or KV according to the patient's size were employed. A right subclavian pacemaker is noted. There is a 7 x 4.7 cm right hilar mass consistent with neoplastic involvement. This mass surrounds and narrows the right hilar pulmonary arterial branches. There is a 17 mm precarinal node and an 18 mm subcarinal node worrisome for metastatic adenopathy. No axillary mass or adenopathy is identified. On lung window images, there is evidence of mild emphysema. There is a moderate right and small left pleural effusion. There is mild bibasilar atelectasis. No localized pulmonary inflammatory process is identified. Limited images of the upper abdomen reveal no mass or localized inflammatory process. IMPRESSION: Right hilar mass consistent with neoplastic involvement which surrounds and narrows the right hilar pulmonary arterial branches. Precarinal and subcarinal nodes worrisome for metastatic adenopathy. Reviewed, Interpreted and Dictated by Issa Teresa III, MD Transcribed by Chanel Oneal Authenticated and [facility]
--- NOTE | 2021-09-07 16:02 | PC.NURSE ---
Rubina LARA and MARCO Escobar at BS
[2021-09-07 17:05] LABS: Troponin I 0.03 ng/ml (0.00-0.034)
--- NOTE | 2021-09-07 17:37 | PC.NURSE ---
at bedside discussing CT results with pt and
--- NOTE | 2021-09-07 17:48 | HMH.EDGENADL ---
ED Disposition Clinical Impression: Lung cancer Disposition: Admitted As Inpatient Condition on Discharge: Good - Critical Care Critical Care Time: Yes Attestation: On 09/07/21, the high probability of a clinically significant, sudden or life threatening deterioration of the following system(s) required my full and direct attention, intervention and personal management. The time I documented below is in addition to time spent performing reported procedures but includes the following listed in this critical care notation. Total Critical Care Time: 30 Vital system(s) involved:: Respiratory Failure My critical care processes included: Assessment & monitoring of V/S, Initial and Re-exams, Data Review/Interpretation, Coordinating Care, Medication Orders and management, Documentation Medical Decision Making - Medical Records Medical records reviewed: Yes: I reviewed the patient's medical records. - Johnny Inquiry Pt receiving controlled substance: No Vital Signs: 09/07/21 12:47 09/07/21 14:00 09/07/21 14:31 Temperature 98.5 F Temperature Source Oral Pulse Rate 70 Pulse Rate [Right] 70 Respiratory Rate 22 18 20 Blood Pressure 132/49 L 113/36 L Blood Pressure [Right Arm] 146/56 H Blood Pressure Mean 76 64 Blood Pressure Mean [Right Arm] 86 Blood Pressure Source [Right Arm] Automatic Cuff Blood Pressure Position [Right Arm] Sitting 02 Sat by Pulse Oximetry 60 L 98 96 Oxygen Delivery Method Nasal Cannula Oxygen Flow Rate (LPM) 09/07/21 15:00 09/07/21 15:30 09/07/21 16:01 Temperature Temperature Source Pulse Rate 70 72 70 Pulse Rate [Right] Respiratory Rate 22 18 17 Blood Pressure 139/45 L 140/53 L 134/55 L Blood Pressure [Right Arm] Blood Pressure Mean 76 82 72 Blood Pressure Mean [Right Arm] Blood Pressure Source [Right Arm] Blood Pressure Position [Right Arm] 02 Sat by Pulse Oximetry 97 97 99 Oxygen Delivery Method Nasal Cannula Nasal Cannula Nasal Cannula Oxygen Flow Rate (LPM) 3 2 3 09/07/21 16:30 09/07/21 19:03 Temperature 98.3 F Temperature Source Pulse Rate 70 70 Pulse Rate [Right] Respiratory Rate 18 19 Blood Pressure 140/50 L 139/47 L Blood Pressure [Right Arm] Blood Pressure Mean 75 Blood Pressure Mean [Right Arm] Blood Pressure Source [Right Arm] Blood Pressure Position [Right Arm] 02 Sat by Pulse Oximetry 99 Oxygen Delivery Method Nasal Cannula Nasal Cannula Oxygen Flow Rate (LPM) 3 3 - Lab Data Lab Results 09/07/21 13:01: VBG pH 7.35, VBG pCO2 71.6 H, VBG pO2 48.5 H, VBG HCO3 39.0 H, VBG Total CO2 41.2 H, VBG O2 Saturation 84.2 H, VBG Base Excess 13.5 H 09/07/21 13:02: SARS-CoV-2 (PCR) Not detected, Influenza A Untype (PCR) Not detected, Influenza Type B (PCR) Not detected 09/07/21 13:05: WBC 9.2, RBC 3.27 L, Hgb 10.2 L, Hct 33.4 L, MCV 102.3 H, MCH 31.1, MCHC 30.4 L, RDW 15.8, Plt Count 359, MPV 7.7, Neut % (Auto) 75.7, Lymph % (Auto) 15.7, Cecil % (Auto) 5.4, Eos % (Auto) 2.1, Baso % (Auto) 1.0, Neut # (Auto) 7.0, Lymph # (Auto) 1.5, Cecil # (Auto) 0.5, Eos # (Auto) 0.2, Baso # (Auto) 0.1 09/07/21 13:05: Sodium 138, Potassium 4.7, Chloride 95 L, Carbon Dioxide 38 H, Anion Gap 9.7, BUN 21 H, Creatinine 0.70, Estimated Creat Clear 47, Estimated GFR 80, Est GFR ( Amer) 97, Glucose 124 H, Calcium 9.0, Total Bilirubin < 0.1 L, AST 37 H, ALT 17, Alkaline Phosphatase 134 H, Troponin I 0.03, Total Protein 6.7, Albumin 3.2 L, Globulin 3.5 H, Albumin/Globulin Ratio 0.9 L 09/07/21 16:19: Troponin I 0.03 Result diagrams: 09/08/21 06:00 09/08/21 06:00 Orders (Tests/Meds): ED MEDICATIONS Discontinued Medications Generic Name Dose Route Start Last Admin Trade Name Freq PRN Reason Stop Dose Admin Acetaminophen 650 mg 09/07/21 18:45 Acetaminophen 325mg Tab PO 10/07/21 18:44 Q4HP PRN Fever or Mild Pain Aspirin 325 mg 09/07/21 13:07 09/07/21 13:22 Aspirin 325mg Tablet PO 09/07/21 13:08 325 mg ONC
--- NOTE | 2021-09-07 17:55 | PC.NURSE ---
Notified house of admission and updated pt and family
--- NOTE | 2021-09-07 18:10 | PC.NURSE ---
LEt pt and know pt would be going to room 215 and I would be calling report as soon as the room was clean
--- NOTE | 2021-09-07 18:56 | PC.NURSE ---
Report given to MARCO Knight
--- NOTE | 2021-09-07 19:18 | PC.NURSE ---
patient up to floor via wheelchair @ this time.
--- NOTE | 2021-09-07 20:08 | PC.NURSE ---
attempted to call at this time to go over home medication list, no answer at this time, will try again at a later time
--- NOTE | 2021-09-08 03:55 | PC.NURSE ---
Pt is a&ox4, pt has slept throughout shift, pt has had no complaints. Pt O2 sat has remained 99% on 3L NC, pt was weaned to home baseline of 2L NC, pt has tolerated well. Pt has gotten up to bedside with assistance, bed alarm is on and functioning due to pt being weak and trying to get up alone.
[2021-09-08 04:00] VITALS: BP 138/48; PULSE 71; RESP 20; TEMP 36.7; O2SAT 96
[2021-09-08 04:47] VITALS: BMI 22.1
[2021-09-08 05:39] LABS: POC Glucose,Bedside 125 (70-110)
[2021-09-08 06:15] LABS: Basophils # 0.1 K/mm3 (0-0.2); Basophils % 0.6 % (0.1-2.0); Eosinophils # 0.1 K/mm3 (0.0-0.4); Eosinophils % 1.3 % (0.1-12.0); Hematocrit 31.1 % (37.0-47.0); Hemoglobin 9.2 g/dL (12.2-16.2); Lymphocytes # 0.7 K/mm3 (0.7-4.5); Lymphocytes % 8.4 % (10-50); Mean Corpuscular HGB Conc 29.7 g/dL (31.8-35.4); Mean Corpuscular Hemoglobin 30.7 pg (27.0-31.2); Mean Corpuscular Volume 103.6 fl (81-99); Mean Platelet Volume 7.7 fl (7.4-10.4); Monocytes # 0.3 K/mm3 (0.1-1.0); Monocytes % 3.6 % (1.7-9.3); Neutrophils # 7.6 K/mm3 (1.8-7.8); Neutrophils % 86.1 % (37.0-80.0); Platelet Count 322 K/mm3 (142-424); Red Blood Count 3.01 M/mm3 (4.20-5.40); Red Cell Distribution Width 15.9 % (11.5-17.5); White Blood Count 8.8 K/mm3 (4.8-10.8)
[2021-09-08 06:19] LABS: MANUAL DIFFERENTIAL MANUAL DIFFERENTIAL (MANUAL DIFF)
[2021-09-08 06:28] LABS: Chloride 96 mmol/L (98-107); Potassium 4.9 mmoL/L (3.5-5.1); Sodium 138 mmol/L (136-145)
[2021-09-08 06:31] LABS: Anion Gap 9.9 mEq/L (5-15); Blood Urea Nitrogen 22 mg/dl (7-17); Calcium 9.1 mg/dl (8.4-10.2); Carbon Dioxide 37 mmol/L (22.0-30.0); Creatinine Clearance Estimated 37 mL/min (50-200); Estimated Glomerular Filt Rate 80 ml/min (>60); GFR (African American) 97 ML/MIN (>60); Glucose 136 mg/dl (74-100)
--- NOTE | 2021-09-08 07:08 | HMH.HP ---
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 Previously saw oncology and received Keytruda. Has not seen oncology in several years. Presented to the ER yesterday due to worsening shortness of breath. On evaluation noted to be hypoxic with CT of new right perihilar mass. Patient noted to have some mild anemia, electrolytes relatively normal. Patient admitted because of frailty, concern for recurrence versus new occurrence of lung cancer, and for further work-up. Overnight she remained stable but with labored breathing. On evaluation this morning, patient in respiratory distress on rounds. Discussion with family at bedside about goals of care. Daughter and stated the patient would not want aggressive measures to keep her alive. Would not want chest compressions, shock, medications. While rounding in talking to family, patient went into respiratory failure with loss of palpable pulse. She proceeded to soon thereafter. Patient's and daughter at bedside. [facility] History I have reviewed the patient's past medical history: Yes Medical History: Reports:: Cancer, Cardiomyopathy, Congestive Heart Failure, Chronic Obstructive Pulmonary Disease (COPD), Coronary Artery Disease, Gastroesophageal Reflux Disease(GERD), Home Oxygen, Hyperlipidemia, Hypertension, Internal Pacemaker, Myocardial Infarction, Renal Insufficiency Denies:: Diabetes Mellitus Type 1, Diabetes Mellitus Type 2, MRSA, Seizures *Have you ever received a pneumonia vaccine?: Yes *Have you received a flu vaccine this season?: Yes Other Medical History: Reports: Anemia, Arthritis, Hypothyroidism, Thyroid Disease Other Surgeries: Yes: Cardiac Catheterization, Cholecystectomy, Colonoscopy, Coronary Stent, Hernia Repair, Hysterectomy-Total, Hysterectomy-Partial, Pacemaker, Thyroidectomy, Other (MASS REMOVED FROM THYROID) Amputation: No Fractures: No - *Social History Smoking Status: Former smoker Tobacco Type: cigarettes # Packs/Day (cigarettes): 1 #Yrs smoked (if former smoker): 30 Alcohol Intake: never Alcohol Intake Frequency:: other Substance Use Type: denies use *Occupational Status:: retired Housing: house Household Members: spouse *Travel in the last 8 weeks: None Family Hx:: No significant family history Review of Systems - Review of Systems Review of systems:: pertinent systems reviewed and negative unless documented below (14 point review of systems performed, pertinent positives and negatives as per HPI) Meds Home Medications Medication Instructions Recorded Confirmed Type Metformin HCl [Glucophage 500mg 500 mg PO BIDWMEAL 03/29/17 09/08/21 History Tablet] PARoxetine HCl [Paxil] 20 mg PO HS 03/29/17 09/08/21 History chlordiazepoxide HCl 25 mg capsule 25 mg PO BID cap 04/24/17 09/08/21 History pantoprazole 40 mg tablet,delayed 40 mg PO DAILY #90 tab 07/27/17 09/08/21 Rx release carvediloL [Carvedilol 6.25mg Tab] 6.25 mg PO BID 08/02/18 09/08/21 History Spironolactone [Spironolactone 25 mg PO DAILY 08/03/18 09/08/21 History 25mg Tablet] Levothyroxine Sodium 125 mcg PO DAILY 06/09/21 09/08/21 History [Levothyroxine 125mcg (0.125mg) Tab] Rosuvastatin Calcium 20 mg PO DAILY 06/09/21 09/08/21 History Tolterodine Tartrate [Detrol] 2 mg PO BID 06/09/21 09/08/21 History Aspirin [Aspirin 81mg EC Tab] 81 mg PO DAILY 06/10/21 09/08/21 History Clopidogrel Bisulfate [Plavix] 75 mg PO DAILY 09/08/21 09/08/21 History Clopidogrel Bisulfate [Plavix] 75 mg PO DAILY 09/08/21 09/08/21 History Losartan Potassium [Cozaar 25mg 25 mg PO DAILY 09/08/21 09/08/21 History Tablets] Allergies Allergy/AdvReac Type Severity Reaction Status Date / Time Penicillins Allergy Unknown Verified 09/07/21 20:07 morphine AdvReac Severe SHORTNESS Verified 09/07/21 20:07 OF BREATH prednisone AdvReac Verified 09/07/21 20:07
[2021-09-08 08:00] VITALS: BP 151/44; PULSE 71; RESP 14; TEMP 36.9; O2SAT 92; O2SAT 94
[2021-09-08 08:52] LABS: Eosinophils % 1 % (0-3); Lymphocytes % 11 % (10-50); Macrocytosis 1+; Monocytes % 3 % (2-9); Neutrophils % 85 % (42-76); Total Cells Counted 100
[2021-09-08 08:53] LABS: Platelet Estimate Normal
--- NOTE | 2021-09-08 09:06 | PC.NURSE ---
Report given to Elsy Alvarez who assumes care of patient at this time
--- NOTE | 2021-09-08 10:01 | PC.NURSE ---
while rounding with md it was noted that patient had increased work of breathing. md was going over plan of care and diagnosis options with patients family ( and daughter) when it was noted patient stopped breathing. family was made aware and current code status was a full code. however, family stated they did not want us to attempt resuscitation (0915) this was witnessed with myself, dr jaquez and toan lyles rn. patient was noted to still have a faint pulse and was taking breath every minute to 2 minutes. family aware that patient could possibly pass very soon and wanted to make patient a dnr. patient passed at 0950 dr jaquez pronounced at that time. astrid young disability manager stated that we were okay to release the body to the home of families wishes. (wood [place])
--- NOTE | 2021-09-08 10:03 | HMH.PULMCON ---
*Admission Date: 09/07/21 *History of present illness: History of CAD with stenting to 90, cardiomyopathy EF 20% hypertension kyphosis history of non-small cell lung cancer RLL received ketruda, last received on August 2017 2/2 weight loss with a plan to follow with CT scan for progression last seen Dr. Eden on received Keytruda previously followed with Dr. Eden on may 2018, most recent prior CT chest from September 2018 reported to be stable with repeat CT chest from this admission showed new right hilar middle lobe mass extending into the upper and lower lobes. This mass appears to be unrelated to the previous pleural-based right lower lobe mass patient had in 2018. Patient also have new right-sided pleural effusion. Highly concerning for malignant spread at this point of time. CT also showed significant emphysematous changes. [facility] History Medical History: Reports:: Cancer, Cardiomyopathy, Congestive Heart Failure, Chronic Obstructive Pulmonary Disease (COPD), Coronary Artery Disease, Gastroesophageal Reflux Disease(GERD), Home Oxygen, Hyperlipidemia, Hypertension, Internal Pacemaker, Myocardial Infarction, Renal Insufficiency Denies:: Diabetes Mellitus Type 1, Diabetes Mellitus Type 2, MRSA, Seizures *Have you ever received a pneumonia vaccine?: Yes *Have you received a flu vaccine this season?: Yes Other Medical History: Reports: Anemia, Arthritis, Hypothyroidism, Thyroid Disease Other Surgeries: Yes: Cardiac Catheterization, Cholecystectomy, Colonoscopy, Coronary Stent, Hernia Repair, Hysterectomy-Total, Hysterectomy-Partial, Pacemaker, Thyroidectomy, Other (MASS REMOVED FROM THYROID) Amputation: No Fractures: No - *Social History Smoking Status: Former smoker Tobacco Type: cigarettes # Packs/Day (cigarettes): 1 #Yrs smoked (if former smoker): 30 Alcohol Intake: never Alcohol Intake Frequency:: other Substance Use Type: denies use *Occupational Status:: retired Housing: house Household Members: spouse *Travel in the last 8 weeks: None Family Hx:: No significant family history Meds Home Medications Medication Instructions Recorded Confirmed Type Metformin HCl [Glucophage 500mg 500 mg PO BIDWMEAL 03/29/17 09/08/21 History Tablet] PARoxetine HCl [Paxil] 20 mg PO HS 03/29/17 09/08/21 History chlordiazepoxide HCl 25 mg capsule 25 mg PO BID cap 04/24/17 09/08/21 History pantoprazole 40 mg tablet,delayed 40 mg PO DAILY #90 tab 07/27/17 09/08/21 Rx release carvediloL [Carvedilol 6.25mg Tab] 6.25 mg PO BID 08/02/18 09/08/21 History Spironolactone [Spironolactone 25 mg PO DAILY 08/03/18 09/08/21 History 25mg Tablet] Levothyroxine Sodium 125 mcg PO DAILY 06/09/21 09/08/21 History [Levothyroxine 125mcg (0.125mg) Tab] Rosuvastatin Calcium 20 mg PO DAILY 06/09/21 09/08/21 History Tolterodine Tartrate [Detrol] 2 mg PO BID 06/09/21 09/08/21 History Aspirin [Aspirin 81mg EC Tab] 81 mg PO DAILY 06/10/21 09/08/21 History Clopidogrel Bisulfate [Plavix] 75 mg PO DAILY 09/08/21 09/08/21 History Clopidogrel Bisulfate [Plavix] 75 mg PO DAILY 09/08/21 09/08/21 History Losartan Potassium [Cozaar 25mg 25 mg PO DAILY 09/08/21 09/08/21 History Tablets] Allergies Allergy/AdvReac Type Severity Reaction Status Date / Time Penicillins Allergy Unknown Verified 09/07/21 20:07 morphine AdvReac Severe SHORTNESS Verified 09/07/21 20:07 OF BREATH prednisone AdvReac Verified 09/07/21 20:07 Internal Medicine - CN: Reslt - Labs CBC & Chem 7: 09/08/21 06:00 09/08/21 06:00 Labs: Short CBC 09/07/21 09/08/21 Range/Units 13:05 06:00 WBC 9.2 8.8 (4.8-10.8) K/mm3 Hgb 10.2 L 9.2 L (12.2-16.2) g/dL Hct 33.4 L 31.1 L (37.0-47.0) % Plt Count 359 322 (142-424) K/mm3 BMP 09/07/21 09/08/21 13:05 06:00 Sodium 138 138 Potassium 4.7 4.9 Chloride 95 L 96 L Carbon Dioxide 38 H 37 H BUN 21 H 22 H Creatinine 0.70 0.70 Glucose 124 H 136 H Calcium 9.0 9.1 Cardiac Enzymes
--- NOTE | 2021-09-08 10:15 | PC.NURSE ---
Spoke with BEN MONTEIRO from [facility] case number is [id number]
--- NOTE | 2021-09-08 14:48 | HMH.BRIEFPOC ---
Date: 09/08/21 Time: 11:00 Plan of Care: Pulmonary consult was placed as concerned for lung cancer. Upon chart review Ms. Sher has a history of non-small cell lung cancer RLL received ketruda, last received on August 2017 2/2 weight loss with a plan to follow with CT scan for progression last seen Dr. Eden on received Keytruda previously followed with Dr. Eden on may 2018, most recent prior CT chest from September 2018 reported to be stable with repeat CT chest from this admission showed new right hilar middle lobe mass extending into the upper and lower lobes. This mass appears to be unrelated to the previous pleural-based right lower lobe mass patient had in 2018. Patient also have new right-sided pleural effusion. Unfortunately patient was declared before pulmonary had a chance to see this patient this morning. Consult will be discontinued.
[2021-09-08 18:54] LABS: POC Glucose,Bedside 158 (70-110)
--- NOTE | 2021-09-08 21:42 | HMH.DEADDC ---
Discharge Sum: Prov - Provider Primary care physician: Kartik Armas MD Visit Care Team Role Provider Type Kartik Armas MD Primary Care Provider Referring Mimibonniestephanie Moreno MD Other Providers Staff Physician Stacy Turner MD Emergency Provider ER Physician Sebas Slater MD Admit Provider Staff Physician Attending Provider Admitting clinician: Sebas Slater Attending physician on admission: Sebas Slater Consults: 09/08/21 07:10 Consult to Pulmonology [CONS] Routine Consulting Provider: Linus Moreno Reason For Consult: lung mass, SOA Pronouncing clinician: Sebas Slater Discharge Sum: Diag - PCOD Cause of : Acute respiratory failure Discharge Sum: Summary - Date and Time Date of admission: 09/07/21 19:13 Date of : 09/08/21 Time of : 09:50 - Hospital Course prior to Hospital Course Information: 85-year-old female history of lung cancer. Admitted for further work-up of new lesion. Unfortunately went into further respiratory distress overnight. Patient on rounds. At bedside. Family transitioned to DNR during discussion of goals of care on rounds. Given comorbidities, past history of cancer, new right-sided lesion, family opted to proceed with comfort measures and not pursue aggressive resuscitation or work-up. Family at bedside when patient . - Additional Data Confirmation of as documented by pronouncing clinician: no pulse, no respirations, no heart sounds, pupils fixed and dilated Family: at bedside Attending/PCP notified?: Yes Attending physician: Sebas Slater MD Was code activated?: No Autopsy requested?: No driver examiner notified?: Yes Organ bank notified?: Yes Advance directives: No Hospice patient?: No
== END 2021-09-08 11:25 | disposition expired | DRG 189 ==
LOC: ER 12:52 → 2ND 09-08 00:21
PROVIDERS: Admitting Provider Internal Medicine Adolescent Medicine; Emergency Provider Student in an Organized Health Care Education/Training Program; PCP Family Medicine; Visit Provider Internal Medicine Adolescent Medicine
DX: J96.00 Acute respiratory failure, unspecified whether with hypoxia or hypercapnia (principal); C34.01 Malignant neoplasm of right main bronchus; I50.22 Chronic systolic (congestive) heart failure; I42.9 Cardiomyopathy, unspecified; N18.9 Chronic kidney disease, unspecified; J44.9 Chronic obstructive pulmonary disease, unspecified; Z66 Do not resuscitate; Z51.5 Encounter for palliative care; I11.0 Hypertensive heart disease with heart failure; Z87.891 Personal history of nicotine dependence; I25.2 Old myocardial infarction; Z95.5 Presence of coronary angioplasty implant and graft
CPT/HCPCS: 36415; 71045; 71260; 80048; 80053; 82803; 82962; 84484; 85007; 85025; 93005; 99285; C9803; Q9967; U0003; U0005